=== PATIENT | female | born 1960 | race Caucasian/White ===

== ENCOUNTER 2019-04-03 08:07 | Emergency (ER) | payer OTHER, SELFPAY ==
--- NOTE | ~2019-04-03 | XR_ITS ---
XR thoracic spine 3V DATE: 04/03/2019 09:54 INDICATION: Fall. Mid back pain. TECHNIQUE: AP, lateral, swimmer views COMPARISON: None FINDINGS: There is loss of height and anterior wedging of T10, with some paraspinal soft tissue thick ening noted at this area. There is at least one third loss of height of this vertebral body anteriorl y compared to T9. CT evaluation would be helpful to differentiate compression from burst fracture. Th is is not definitively determined on this examination, due in part to mild obliquity of the lateral v iew. No other fracture of the thoracic spine is evident. The thoracic pedicles are intact. There is diffus e osteopenia. There are 11 pairs of ribs. IMPRESSION: T11 fracture Reviewed, dictated and finalized at location B. TRICITY TRADER IMPRESSION: T11 fracture
--- NOTE | ~2019-04-03 | CT_ITS ---
EXAMINATION: CT thoracic spine wo con EXAM DATE: 04/03/2019 10:33 INDICATION: Thoracic fracture. TECHNIQUE: Spiral CT thoracic spine wo con was performed without contrast. Axial, coronal and sagit sandra images were reviewed. The dose-length product (DLP) for this examination was 1066.05 mGy-cm. Th e exposure was tailored according to patient size (auto mA exposure control), and iterative reconstru ction (ASIR) was used as additional dose reduction technique. There is no prior study for comparison . FINDINGS: There are only 11 thoracic rib bearing thoracic vertebral bodies. There is acute mild to mo derate burst fracture of the T10 vertebral body with up to 3 mm of retropulsion at the superior endpl ate. This is causing minimal central canal stenosis. Central canal otherwise widely patent. No other acute thoracic fractures are identified. Mild thoracic facet arthropathy. Mild thoracic disc disease. There is small sliding gastroesophageal hiatal hernia. IMPRESSION: 1. Total of 11 thoracic rib-bearing vertebral bodies. 2. Acute T10 burst fracture, mild to moderate loss at superior endplate. 3. Mild thoracic spondylosis. Reviewed, dictated and finalized at location A. CLIMBING INSTRUCTOR
[2019-04-03 08:12] VITALS: BP 154/103; PULSE 64; RESP 16; TEMP 36.7; O2SAT 98
[2019-04-03 08:18] VITALS: RESP 16; O2SAT 98
[2019-04-03] MEDS: KETOROLAC 15 MG/ML VIAL (*BKC) IV PUSH (08:59)
--- NOTE | 2019-04-03 09:16 | ED.FALL ---
HPI - Fall General Chief Complaint: Fall <YADI Pierce Last Filed: 04/03/19 12:11> Stated Complaint: FALL sob <YADI Pierce Last Filed: 04/03/19 12:11> Time Seen by Provider: 04/03/19 08:20 <YADI Pierce Last Filed: 04/03/19 12:11> Source: patient <YADI Pierce Last Filed: 04/03/19 12:11> Mode of arrival: EMS <YADI Pierce Last Filed: 04/03/19 12:11> Limitations: physical limitation (Patient limited in range of motion due to thoracic pain) <YADI Pierce Last Filed: 04/03/19 12:11> History of Present Illness HPI Narrative: Patient presents with chief complaint of pain to the thoracic spine that began just prior to arrival after slipping and hitting her back on a step. Patient states she feels better when she lays flat on her back and puts her knees in a flexed position. Patient states she is unable to rotate due to severe pain. Patient denies prior fracture to her thoracic spine. Patient denies radiation of pain, shortness of breath, chest pain, nausea, vomiting, head impact or any other areas of pain. Patient states she was unable to get up due to the pain so EMS was called to bring her to the emergency department. Patient last thing to eat or drink was coffee today at 7:30 AM. <YADI Pierce Last Filed: 04/03/19 12:11> Related Data Home Medications: Home Medications Medication Instructions Recorded Confirmed atenolol 04/03/19 levothyroxine 04/03/19 paroxetine HCl 04/03/19 <YDAI Pierce Last Filed: 04/03/19 12:11> Allergies/Adverse Reactions: Allergies Allergy/AdvReac Type Severity Reaction Status Date / Time meperidine Allergy Intermediate Jittery Verified 04/03/19 08:53 <YADI Pierce Last Filed: 04/03/19 12:11> Review of Systems Review of Systems: Narrative: CONSTITUTIONAL: Denies fever, chills, or sweats. EYES: Denies visual changes, redness, or discharge. ENT: Denies rhinorrhea, congestion, sore throat, or otalgia. CARDIOVASCULAR: Denies chest pain, palpitations, or edema. RESPIRATORY: Denies cough or dyspnea. GASTROINTESTINAL: Denies abdominal pain, nausea, vomiting, or diarrhea. GENITOURINARY: Denies dysuria or hematuria. BACK: Severe lower thoracic tenderness. Exam is limited as patient refuses any range of motion due to severe pain. Step-off not palpable. Mild erythema and swelling over the area SKIN: Denies rash or itching. MUSCULOSKELETAL: Denies back pain, joint pain, or myalgia. NEUROLOGIC: Denies headache, numbness, dizziness, or weakness. PSYCHIATRIC: Denies anxiety or depression. <Logan Brand PA-C - Last Filed: 04/03/19 12:11> [facility] Social History Social History: Social History Gender identity (if verbalized by the patient): Female <Logan Brand PA-C - Last Filed: 04/03/19 12:11> Exam Narrative: Exam Narrative: GENERAL: Well-appearing, well-nourished. Patient appears uncomfortable laying in a flat position with knees flexed HEAD: Normocephalic, atraumatic. No tenderness with palpation. EYES: PERRLA and EOMI. ENT: Nares clear, no rhinorrhea or epistaxis. Mucous membranes moist. Oropharynx without tonsillar hypertrophy exudate or other lesions. Bilateral TMs pearly sarabia nonbulging. No hemotympanum NECK: Supple. No adenopathy or masses. No carotid bruits or JVD. Range of motion intact without pain or tenderness. CHEST: Clear to auscultation. No respiratory distress. No wheezes rales or rhonchi HEART: Regular rate and rhythm. No murmur heard. Normal peripheral pulses. BACK: Patient extremely resistant to physical exam due to pain. Severe tenderness to lower thoracic spine with swelling erythema over the area ABDOMEN: Soft, nontender, nondistended, normal active bowel sounds. EXTREMITIES: Normal range of motion. No edema. SKIN: Warm, dry, no rash. NEURO: No focal deficits. Alert and oriented x3. PSYCH: Normal mood and affect.
[2019-04-03 11:54] VITALS: BP 135/87; PULSE 68; RESP 16; O2SAT 94
[2019-04-03 13:29] VITALS: BP 145/90; PULSE 65; RESP 16; O2SAT 95
== END 2019-04-03 13:30 | disposition short-term general hospital (02) ==
PROVIDERS: Emergency Provider Emergency Medicine
DX: S22.071A Stable burst fracture of T9-T10 vertebra, initial encounter for closed fracture (principal); M47.814 Spondylosis without myelopathy or radiculopathy, thoracic region; W00.1XXA Fall from stairs and steps due to ice and snow, initial encounter
CPT/HCPCS: 72072; 72128; 96374; 99284; 99285; J1885

== ENCOUNTER 2023-01-24 08:30 | Outpatient (RCR) | payer OTHER, SELFPAY | END 2023-01-24 09:14 | disposition home or self-care (01) | LOC: ANHCPREHAB 08:30 | PROVIDERS: PCP Internal Medicine; Visit Provider Internal Medicine Cardiovascular Disease | DX: Z95.1 Presence of aortocoronary bypass graft (principal) | CPT/HCPCS: 93798 ==

== ENCOUNTER 2024-04-12 21:42 | Observation (INO) | payer OTHER, SELFPAY ==
--- NOTE | ~2024-04-12 | XR_ITS ---
CHEST RADIOGRAPH CLINICAL HISTORY: chest pain . COMPARISON: None TECHNIQUE: Single portable view of the chest. FINDINGS Sternal wires and mediastinal clips are identified, the wires are midline and intact. The remainder of the cardiomediastinal silhouette is otherwise unremarkable. The lungs are clear. Visualized osseous structures and soft tissues are unremarkable. IMPRESSION: No focal infiltrate or effusion. Reviewed, dictated and finalized at location A. UCTION GEAR CUTTER
--- NOTE | 2024-04-12 21:46 | ECG_ITS ---
Test Date: 2024-04-12 22:10:04 Measurements Intervals Collins Rate: 65 P: 29 SC: 158 QRS: 45 QRSD: 98 T: 75 QT: 406 QTc: 423 Interpretive Statements SINUS RHYTHM NORMAL ECG No previous ECG available for comparison Electronically Signed On 04-13-2024 08:17:32 REGIONAL MAINTENANCE MANAGER by Hernandez Welch D.O.
--- NOTE | 2024-04-12 21:48 | ED.CHESTPAIN ---
HPI - Chest Pain General Chief Complaint: Chest Pain Stated Complaint: chest pain Time Seen by Provider: 04/12/24 21:43 Source: patient Mode of arrival: EMS Limitations: no limitations History of Present Illness HPI narrative: This is a 64-year-old female with PMH of CAD, s/p CABG August 2022, HLD who presents to the ED for chief complaint of chest pain beginning yesterday and has been intermittent in nature. States it is difficult to report on the exact location but feels like it is in the left anterior chest and sometimes in the back. Patient reports that the pain has been intermittent and usually only last for 10-15 minutes. Not specifically associated with exertion. Denies associated syncope, sweats, nausea, vomiting. Denies associated shortness of breath, cough or recent illness. She received full dose aspirin via EMS and also received nitro spray x1. States that the nitro did help with pain and that pain is minimal at this point. Related Data Home Medications ?Medication ?Instructions ?Recorded ?Confirmed ?Last Taken ?Type atenolol 04/03/19 Unknown History levothyroxine 04/03/19 Unknown History paroxetine HCl 04/03/19 Unknown History Allergies Allergy/AdvReac Type Severity Reaction Status Date / Time meperidine Allergy Intermediate Jittery Verified 10/24/22 08:37 potato Allergy Other Verified 10/24/22 08:39 soy Allergy Wheezing Verified 10/24/22 08:39 Review of Systems Review of Systems: All systems as dictated in [facility] Family History Family History (Updated 10/24/22 @ 08:31 by Albertina Terry RN) Father High cholesterol Hypertension Cerebrovascular accident Diabetes mellitus Cancer Mother High cholesterol Hypertension Heart disease Heart attack Cancer Sibling High cholesterol Hypertension Heart disease Diabetes mellitus Social History Social History Smoking packs per day: 1 Smoking cigarettes per day: 20.0 Years smoked: 10 Smoking pack-years: 10.00 Smoking status: Former smoker Tobacco type: cigarettes Additional smoking assessment comments: inconsistent for approx 10 years Gender identity (if verbalized by the patient): Female Exam Narrative: GENERAL: Well-appearing, well-nourished, and in no acute distress. HEAD: Normocephalic, atraumatic. EYES: PERRLA and EOMI. ENT: Nares clear, no rhinorrhea or epistaxis. Mucous membranes moist. Oropharynx without tonsillar hypertrophy exudate or other lesions. NECK: Supple. No adenopathy or masses. CHEST: No respiratory distress. Clear to auscultation. No wheezes rales or rhonchi HEART: Regular rate and rhythm. No murmur heard. Normal peripheral pulses. ABDOMEN: Soft, nontender, nondistended, normal active bowel sounds. MSK: Normal range of motion. No edema. SKIN: Warm, dry, no rash. NEURO: Alert and oriented x4. No focal deficits. PSYCH: Normal mood and affect. Course Vital Signs Vital signs: Vital Signs Pulse Rate 68 04/12/24 21:50 Respiratory Rate 20 04/12/24 21:50 Blood Pressure 132/89 04/12/24 21:50 Pulse Oximetry 98 04/12/24 21:50 Pulse Rate 62 04/13/24 01:20 Respiratory Rate 17 04/13/24 00:52 Blood Pressure 114/68 04/13/24 01:20 Pulse Oximetry 98 04/13/24 00:52 Oxygen Delivery Room Air 04/12/24 21:51 MDM - Chest Pain MDM Narrative Medical decision making narrative: This is a 64-year-old female who presents to the ED for chief complaint of chest pain beginning yesterday and episodic in nature. Concern for unstable angina today. Vitals on arrival are normal. She received nitro sublingually and route via EMS which did improve her pain and her EKG findings. Lab work surprisingly showing normal troponin on arrival and subsequent troponin is normal at 3 hour fermin. D-dimer is negative. Lab work is overall unremarkable. Chest x-ray shows no acute findings. Patient developed a couple of bouts of acute worsening pain. She appears to have dynamic ST changes in leads V4, V5, V6 on repeat ECGs. She was then started on heparin bolus and drip, nitro drip for unstable angina. After the nitro drip has started, she is now pain-free. The ECG has returned back to sinus rhythm with no depression in anterolateral leads Discussed the case including her history of coronary bypass with Dr. Reddy who agrees with starting the heparin drip and nitro drip. Recommends admitting to the hospitalist and they will consult in the morning. Patient was given supportive therapy with O2 nasal cannula, IV morphine, Valium for anxiety as well as started on heparin bolus and drip with nitro drip. Patient will be admitted to ICU under Dr. Griffin. Lab Data 04/12/24 22:17 02/15/25 22:17 Labs: Lab Results 04/12/24 04/12/24 04/13/24 Range/Units 22:17 23:29 00:48 WBC 4.8 (4.5-10.0) K/mm3 RBC 4.57 (4.2-5.4) M/mm3 Hgb 14.2 (12.0-15.0) g/dL Hct 42.0 (37.0-47.0) % MCV 91.9 (80-100) fl MCH 31.1 (26-34) pg MCHC 33.8 (32-36) g/dl RDW 13.3 (11.5-14.5) % Plt Count 235 (150-375) k/mm3 MPV 9.5 (7.4-10.4) fl Immature Gran % (Auto) 0.2 (0-0.5) % Neut % (Auto) 50.8 (45.5-73.1) % Lymph % (Auto) 37.7 (18.3-44.2) % Piatt % (Auto) 8.4 (2.6-8.5) % Eos % (Auto) 2.3 (0-4.4) % Baso % (Auto) 0.6 (0.2-1.2) % Lymph # (Auto) 1.80 (0.9-3.2) K/mm3 Piatt # (Auto) 0.4 (0.1-0.6) K/mm3 Eos # (Auto) 0.1 (0-0.3) K/mm3 Baso # (Auto) 0.0 (0.0-0.1) K/mm3 Abs Immat Gran (auto) 0.01 (0.00-0.031) K/mm3 Absolute Neuts (auto) 2.4 (1.3-6.7) K/mm3 Absolute Nucleated RBC 0.000 (0.0-0.012) K/mm3 Nucleated RBC % 0.0 (0.0-0.2) % PT 12.8 (11.1-14.7) Seconds INR 0.9 APTT 27.4 (22.3-36.8) Seconds D-Dimer < 0.27 (<0.48) ug/mL Sodium 142 (137-145) mmol/L Potassium 4.3 (3.4-5.0) mmol/L Chloride 105 (98-107) mmol/L Carbon Dioxide 26 (22-30) mmol/L Anion Gap 11 (4-12) mmol/L BUN 20 H (7-17) mg/dL Creatinine 0.60 L (0.7-1.0) mg/dL Estim Creat Clear Calc 77 ml/min Estimated GFR > 60 (59 - ) Glucose 106 (65-110) mg/dL Calcium 9.2 (8.4-10.2) mg/dL Total Bilirubin 0.3 (0.2-1.3) mg/dL AST 27 (14-36) U/L ALT 30 (6-35) U/L Alkaline Phosphatase 77 (38-126) U/L Troponin I < 0.012 < 0.012 (0.000-0.034) ng/mL NT-Pro-B Natriuret Pep 41 (19.9-100) pg/mL Total Protein 7.0 (6.3-8.2) g/dL Albumin 4.2 (3.5-5.1) g/dL Lipase 126 (23-300) U/L Urine Color Yellow (Yellow) Urine Appearance Cloudy H (Clear) Urine pH 7.0 (5.0-9.0) Ur Specific Meigs 1.020 (1.001-1.035) Urine Protein Negative (Negative) mg/dL Urine Glucose (UA) Negative (Negative) mg/dL Urine Ketones Trace H (Negative) mg/dL Ur Blood (Man) Negative (Negative) Urine Nitrate Negative (Negative) Urine Bilirubin Negative (Negative) Urine Urobilinogen 0.2 (<2.0) mg/dL Leukocyte Esterase Rfl Negative (Negative) CLARENCE/UL Urine RBC 0-2 (0-2) /hpf Urine WBC 0-5 (0-3) /hpf Ur Squamous Epith Cells None seen (Few) /hpf Urine Bacteria None seen /hpf Urine Casts 0-2 ECG Data EKG #1: ECG completion date: 04/12/24 ECG completion time: 22:10 Prior ECG tracings: available for review Interpretation: Sinus rhythm Rate 65 Normal QRS Normal QTC No ST elevation or significant ST depression. In comparison to ECG done by EMS just prior to arrival, the ST depressions from V4, V5 have resolved. EKG #2: ECG completion date: 04/13/24 ECG completion time: 00:34 Prior ECG tracings: available for review Interpretation: Sinus rhythm Rate 66 QRS normal [address] depressions in leads V4, V5 which is acutely changed from previous ECG this evening [address] elevations EKG #3: ECG completion date: 04/13/24 ECG completion time: 01:02 Prior ECG tracings: available for review Interpretation: Sinus rhythm Rate [address] Dynamic [address] changes with a worsening 1-2 mm depression in V4, V5 and developing 1 mm depression in V6 No STEMI EKG #4: ECG completion date: 04/13/24 ECG completion time: 01:55 Interpretation: Sinus rhythm Normal rate Improved ST segments in V4, V5, V6 compared to previous ECG 45 minutes ago. Does not appear to have any significant depression or ST elevation at this time Discharge Plan Discharge Clinical Impression: Unstable angina, Abnormal ECG Patient Disposition: Still a Patient Condition: Serious Instructions: Antibiotic Form Patient Language: Macedonian Prescriptions: No Action atenolol levothyroxine paroxetine HCl Follow-up/Referrals: Matias,Kyle Jackson MD [Primary Care Provider] - Time of Disposition: 01:52 Quality HEART score for chest pain patients History: moderately suspicious ECG: significant ST depression Age: > 45 and < 65 years Risk factors: > or = to 3 risk factors of atherosclerotic disease Troponin: < or = to 1x normal limit Heart score: 6
[2024-04-12 21:50] VITALS: BP 132/89; PULSE 68; RESP 20; O2SAT 98
[2024-04-12 21:51] VITALS: PULSE 69; O2SAT 98
--- OUTSIDE RECORDS SUMMARY | 2024-04-12 21:53 | XMS_ITS | Clinical Summary ---
Author Organization [facility] Address [address] [place] [address] Care Team Providers Care Supervisor Salvage Name Role Phone Unavailable Primary Care Provider Unavailabl e Source Comments [facility],non-owned Affiliates and Associated Physician Practices is amultiple site organization consisting of ambulatory clinics and hospital sitesin [place], [place], [place] and [place]. This disclosure is being madepursuant to the Care Everywhere program and may not contain all information available regarding this patient. Last updated 17.[facility] [employer] Allergies Active Allergy Reactions Criticality Noted Date Comments Meperidine Other 02/11/2019 Medications * Be aware that medications may not be up to date on this document. Alwaysverify current medications with the patient. Medication Sig Dispensed Refills Start Date End Date Status ALPRAZolam (XANAX) 0.5 MG tablet alprazolam 0.5 mg tablet Active atenolol (TENORMIN) 25 MG tablet atenolol 25 mg tablet Active levothyroxine (SYNTHROID) 100 MCG tablet levothyroxine 100 mcg tablet TAKE ONE TABLET BY MOUTH EVERY DAY Active benzonatate (TESSALON) 200 MG capsule Take 1 capsule by mouth 3 times daily as needed for Cough 30 capsule 02/11/2019 Active Active Problems No known active problems Immunizations Name Administration Dates Next Due INFLUENZA VACCINE, QUADR. (F LUZONE; FLULAVAL; FLUARIX; AFLURIA QUADRIVALENT; 6MO+), 0.5 ML (IIV4) 01/14/2021 Social History Tobacco Use Types Packs/Day Years Used Date Smoking Tobacco: Former Smokeless Tobacco: Never Sex and Gender Information Value Date Recorded Sex Assigned at Not on file Gender Identity Not on file Sexual Orientation Not on file Last Filed Vital Signs Vital Sign Reading Time Taken Comments Blood Pressure 136/88 02/11/2019 6:04 PM EMERGENCY ROOM RN Pulse 70 02/11/2019 6:04 PM EMERGENCY ROOM RN Temperature 36.8 C (98.3 F) 02/11/2019 6:04 PM EMERGENCY ROOM RN Respiratory Rate 16 02/11/2019 6:04 PM EMERGENCY ROOM RN Oxygen Saturation 97% 02/11/2019 6:04 PM EMERGENCY ROOM RN Inhaled Oxygen Concentration - - Weight 74.8 kg (165 lb) 02/11/2019 6:04 PM EMERGENCY ROOM RN Height 167.6 cm (5' 6 ) 02/11/2019 6:04 PM EMERGENCY ROOM RN Body Mass Index 26.63 02/11/2019 6:04 PM EMERGENCY ROOM RN Plan of Treatment Health Maintenance Due Date Last Done Comments COLOGUARD (AGES 45-75) - COL ON CA SCREENING 1962 COLON MONITORING 1962 COLONOSCOPY - COLON CA SCREENING 1962 CT COLONOGRAPHY - COLON CA SCREENING 1962 Colorectal Cancer Screening 1962 FIT - COLON CA SCREENING 1962 FLEX SIG - COLON CA SCREENING 1962 LIPID TESTING 1962 MAMMOGRAM 1962 PAP SMEAR 1962 HIV SCREENING 1977 HEPATITIS C SCREENING 03/05/1980 DTAP/TDAP/TD VACCINES (1 - Tdap) 1981 PNEUMOCOCCAL VACCINE 50+ (1 of 1 - PCV) 2012 ZOSTER VACCINE (1 of 2) 2012 COVID-19 VACCINE ( - 2023-2 5 season) 2023 INFLUENZA VACCINE (#1) 2023 1, 12/16/2019 DEPRESSION SCREENING 02/27/2024 Respiratory Syncytial Virus (RSV) Vaccine Pt: or over 60 yrs (1 - 1-dose 75+ series) 2037 HEPATITIS B VACCINE Aged Out No longe r eligible based on patient's age to complete this topic HIB VACCINE Aged Out No longer eligi ble based on patient's age to complete this topic HPV VACCINE Aged Out No longer eligi ble based on patient's age to complete this topic MENINGOCOCCAL (Group B) VACCINE Aged Out No longer eligible b ased on patient's age to complete this topic MENINGOCOCCAL VACCINE Aged Out No madi brice eligible based on patient's age to complete this topic PNEUMOCOCCAL VACCINE Aged Out No long er eligible based on patient's age to complete this topic
--- OUTSIDE RECORDS SUMMARY | 2024-04-12 21:53 | XMS_ITS | Continuity of Care Document ---
Author Organization [facility] Address [address] [place] [address] Phone Care Team Providers Care Control Room Helper Name Role Phone Jaret PUENTE, R Unavailable Unavailable Advance Directives Directive Yes / No Effective Date File Name No Information Encounters Encounter Description Practice Location Reason(s) For Visit Diagnoses Date Provider Providers Copied on Encounter [facility], [address] [facility] [place], [place], [id number], tel:[phone] [facility] No Information Jaret Burden. [address] [facility] [address], [place], [place], [id number] , [place]. tel: [phone] Family History Family Member Type Diagnosis Age At Onset No Information Payers Payer name Insurance type Covered green party ID Authoriza tion(s) No Information Social History Type Description Quantity Date Captured Comments Sex Female Smoking Status No Information Chief Complaint And Reason For Visit No Information Reason For Referral Reason For Referral No Information History Of Present Illness Encounter Date Complaint History Of Prese nt Illness No Information Functional Status Date Functional Assessmen t No Information Instructions Date Instruction Additional Infor mation No Information Assessments Type Assessment Date No Information Patient Care Teams Name Effective Dates (start - stop) Status Members No Information
--- OUTSIDE RECORDS SUMMARY | 2024-04-12 21:53 | XMS_ITS | Clinical Summary ---
Author Organization [facility] Address [address] [place] [address] Care Team Providers Care Apartment Rental Agent Name Role Phone Kyle Salcedo MD Primary Care Provider [phone] Sadaf Coronado MD Unavailable [phone] Unknown, Notinfile Unavailable Unavailable Allergies Active Allergy Reactions Criticality Noted Date Comments Meperidine Mental status changes Low Potatoes Stomach upset Low 09/01/2022 white potatoes Soy Wheezing Medium 04/10/2022 Medications fexofenadine (RYAN ALLERGY) 180 mg tablet take 1 tablet by oral route every day 0 0 09/09/19 16 Active famotidine-Ca carb-mag hydrox (PEPCID COMPLETE) 10-800-165 mg chewable tabletIndicati ons:Heartburn Take 1 tablet by mouth daily as needed for heartburn Active multivitamin capsule Take 1 capsule by mouth daily with lunch Active acidophilus-pe ctin, citrus 100 million cell-10 mg capsule Take 1 tablet by mouth every morning Active psyllium 0.52 gram capsule Take 1 capsule (0.52 g total) by mouth every morning Active ALPRAZolam (XANAX) 0.5 mg tablet Take 1 tablet (0.5 mg total) by mouth nightly as needed for anxiety or sleep 90 tablet 2 02/21/20 23 Active FLUoxetine 10 mg tablet/capsule TAKE ONE CAPSULE BY MOUTH EVERY DAY 90 capsule 2 01/18/20 24 Active atorvastatin (LIPITOR) 80 mg tablet TAKE ONE TABLET BY MOUTH AT BEDTIME 90 tablet 2 01/18/20 24 Active atenoloL (TENORMIN) 25 mg tablet Take 1 tablet (25 mg total) by mouth daily 90 tablet 1 02/08/20 24 025 Active clopidogreL (PLAVIX) 75 mg tablet Take 1 tablet (75 mg total) by mouth daily 30 tablet 11 03/19/19 25 Active levothyroxine (SYNTHROID) 100 mcg tablet TAKE ONE-HALF TABLET BY MOUTH EVERY DAY 45 tablet 2 03/26/19 25 Active clopidogreL (PLAVIX) 75 mg tablet TAKE 1 TABLET(75 MG) BY MOUTH DAILY 30 tablet 11 03/28/19 24 025 Discontinued(Re order) levothyroxine (SYNTHROID) 100 mcg tablet TAKE ONE-HALF TABLET BY MOUTH EVERY DAY 45 tablet 2 07/09/19 24 025 Discontinued Active Problems Problem Noted Date Diagnosed Date CAD in [place] artery 08/23/2022 Assessment & Plan (11/12/2023 2:44 PM CDT): Stable and doing well. Coronary artery disease 07/17/2022 Assessment & Plan (08/28/2022 11:30 AM CDT): S/P CABG x2 PT/OT Aggressive pulmonary toilet Cts out Plan to DC wires today Continue aspirin, statin, not on BB yet due to soft BP's Assessment & Plan (08/27/2022 11:51 AM CDT): S/P CABG x2 PT/OT Aggressive pulmonary toilet Plan to DC CT's today Cap wires Continue aspirin, statin, not on BB yet due to soft BP's Routine general medical exam ination at a health care facility 04/10/2022 Assessment & Plan (04/10/2022 10:29 AM EXTRUSION DIE CORRECTOR): Labs today Referrals for DEXA, MMG, COLO and EGD Will make WWE Declines shingles vaccination, otherwise IUTD Goal of 150 min/weekly of moderate intensity activity Limit 1 EtOH/drink daily Anxiety disorder 12/18/2017 Assessment & Plan (08/28/2022 11:30 AM CDT): Continue home paxil Assessment & Plan (08/27/2022 11:56 AM CDT): Continue home paxil Benign essential hypertension 12/18/2017 Assessment & Plan (11/12/2023 2:44 PM CDT): BP at target. Continue present Rx. Gastroesophageal reflux disease 12/18/2017 Assessment & Plan (08/28/2022 11:30 AM CDT): Continue PPI therapy Assessment & Plan (08/27/2022 11:56 AM CDT): Continue PPI therapy Overweight 06/23/2015 Overview (06/01/2016): Overweight Hypertension 06/23/2015 Overview (06/01/2016): Hypertension Insomnia 06/23/2015 Overview (06/01/2016): Insomnia Hyperlipidemia 06/23/2015 Overview (06/01/2016): Hyperlipidemia, unspecified hyperlipidemia type Assessment & Plan (11/12/2023 2:44 PM CDT): Stable at this time. Will do labs Assessment & Plan (08/28/2022 11:29 AM CDT): Continue statin therapy Assessment & Plan (08/27/2022 11:55 AM CDT): Continue statin therapy Assessment & Plan (04/10/2022 10:33 AM EXTRUSION DIE CORRECTOR): Reviewed today, elevated We discussed diet and activity Trial 20mg atorvastatin Acquired hypothyroidism 06/23/2015 Overview (12/18/2017): Hypothyroidism, unspecified type Assessment & Plan (08/28/2022 11:29 AM CDT): Continue levothyroxine Assessment & Plan (08/27/2022 11:57 AM CDT): Continue levothyroxine Vitamin D deficiency 11/23/2014 Overview (04/04/2019): Vitamin D deficiency Allergic rhinitis 11/23/2014 Overview (12/18/2017): Allergic rhinitis Resolved Problems Problem Noted Date Diagnosed Date Resolved Date Acute pain due to trauma 04/04/2019 Burst fracture of thoracic vertebra (CMS/HCC) 04/04/19 20 04/10/2022 Fracture of eleventh thoraci c vertebra with routine healing 04/04/2019 04/10/2022 UTI (urinary tract infection) 04/04/2019 04/10/2022 Orthostatic hypotension 04/04/201903/29 Weight gain 12/18/2017 04/04/2019 Arthralgia of hip 03/28/2016 04/10/2022 Encounters Date Type Department Care Team Description 04/11/2024 Telephone [facility] [address] [place] [address] Sarmad Shetty MD Chest Pain; sternum soreness from Last 3 Months Immunizations Name Administration Dates Next Due Influenza, Quadrivalent, Quiana l Culture-based MDCK, Preservative Free, Antibiotic Free, Intramuscular 01/20/2022,12/16/2019 Influenza, Quadrivalent, Spl it, Preservative Free, Intramuscular 01/14/2021,11/26/2014,11/26/2013 Influenza, Unspecified 11/26/2018,11/26/2018 Moderna Sars-cov-2 Bivalent Vaccine 50 Mcg/0.5 mL (12+ YRS)-Blue/Frank 01/05/2022 Pfizer SARS-CoV-2 Monovalent Vaccination (12+ Yrs) PURPLE 12/14/2020 Tdap 05/19/2022,09/26/2014 Surgical History Surgery Date Site/Laterality Comments SINUS SURGERY 02/26/1995 - 02/26/1996 CARDIAC SURGERY 08/23/2022 Medical History Medical History Date Comments Hypertension Hypertension Depression Thyroid disease Burst fracture of thoracic vertebra (CMS/HCC) (H CC) 04/04/2019 Fracture of eleventh thoracic vertebra with rout ine healing 04/04/2019 Family History Medical History Relation Name Comments Diabetes Father Family history of diabetes mellitus - (Added by Conv) Glaucoma Father Hypertension Father Hypertension; / Family history of hypertension - (Added by Conv) Prostate cancer Father Stroke Father hemorrhagic Heart disease Maternal Grandfather Osteoporosis Maternal Grandmother Arthritis Mother Family history of arthritis - (Added by Conv) Breast cancer Mother Cancer, breast ; Gout Mother Family history of gout - (Added by TW Conv) Heart disease Mother Heart disease; /Family history of cardiac disorder - (Added by Conv) Hypertension Mother Hypertension; / Family history of hypertension - (Added by Conv) Macular degeneration Mother Obesity Mother Obesity; Scoliosis Mother Diabetes Sister Hyperlipidemia Sister Macular degeneration Sister Relation Name Status Comments Father Alive Maternal Grandfather Maternal Grandmother Mother Alive Paternal Grandfather Paternal Grandmother Sister Alive Social History Tobacco Use Types Packs/Day Years Used Date Smoking Tobacco: Former Cigarettes 0.1 42.1 S tarted: 1982 Smokeless Tobacco: Never Tobacco Cessation:Counseling Given: Not Answered Alcohol Use Standard Drinks/Week Comments Yes 0 (1 standard drink = 0.6 oz pur e alcohol) OASIS D0700: Social Isolation Answer Da te Recorded Frequency of experiencing loneliness or isolatio n Often 09/01/2022 AUDIT-C Answer Date Recorded Q1: How often do you have a drink containing alcohol? 4 or more times a week 08/16/2022 Q2: How many drinks containi ng alcohol do you have on a typical day when you are drinking? 1 or 2 3 Q3: How often do you have si x or more drinks on one occasion? Never 08/16/2022 PHQ-2 Answer Date Recorded PHQ-2 Total Score (If total score is 3 or more points, staff should administer the PHQ-9) 1 04/10/2022 Exercise Vital Sign Answer Date Recorde d On average, how many days pe r week do you engage in moderate to strenuous exercise (like a brisk walk)? 5 days 04/10/2022 On average, how many minutes do you engage in exercise at this level? 40 min 04/10/2022 Personal Safety Answer Date Recorded Have you ever been in or are you currently in a harmful physical or emotional relationship or is someone making you feel afraid or unsafe? Denies 08/26/2022 Comments No Sex and Gender Information Value Date Recorded Sex Assigned at Not on file Legal Sex Female 3:49 AM EXTRUSION DIE CORRECTOR Gender Identity Female 12/21/2017 12:29 PM CDT Sexual Orientation Not on file Obstetrics History Para Term AB IAB SAB Ectopic Multiple Livin g Live Births 0 0 0 0 0 0 0 0 0 0 0 Last Filed Vital Signs Vital Sign Reading Time Taken Comments Blood Pressure 149/87 11/12/2023 2:12 PM CDT Pulse 79 11/12/2023 2:12 PM CDT Temperature 37.1 C (98.8 F) 02/16/2023 8:49 AM EXTRUSION DIE CORRECTOR Respiratory Rate 16 10/23/2022 9:27 AM CDT Oxygen Saturation 98% 02/16/2023 8:49 AM EXTRUSION DIE CORRECTOR Inhaled Oxygen Concentration - - Weight 72.6 kg (160 lb) 11/12/2023 2:12 PM CDT Height 167.6 cm (5' 6 ) 11/12/2023 2:12 PM CDT Body Mass Index 25.82 11/12/2023 2:12 PM CDT Plan of Treatment Scheduled Procedures Name Priority Associated Diagnoses Date/Ti me COLONOSCOPY Colon cancer screening Gastroesophageal reflux disease, unspecified whether esophagitis present ESOPHAGOGASTRODUODENOSCOPY Colon cancer screening Gastroesophageal reflux disease, unspecified whether esophagitis present ESOPHAGOGASTRODUODENOSCOPY Gastroesophageal reflux disease with esophagitis without hemorrhage COLONOSCOPY Encounter for screening colonoscopy Health Maintenance Due Date Last Done Comments Colon Cancer Screening-Colonoscopy 1962 Hepatitis C Screening 1962 Pneumococcal vaccine <65 (1 of 2 - PCV) 1968 Hepatitis B Screening 1980 Zoster Vaccine (1 of 2) 2012 Breast Cancer Screening-Mammogram 02/26/2015 015 Cervical Cancer Screening 02/26/2015 02/26/2014 Depression Screening 04/10/2023 04/10/2022 Regular Well Visit/Exam 18-64 04/10/2023, 11/09/2020, 11/09/2020 Covid-19 Vaccine (5 - 2023-2 5 season) 2023 01/05/2022, 12/14/2020, 04/08/2020, Additional history exists Influenza Vaccine (#1) 2023 2, 01/14/2021, 12/16/2019, Additional history exists DTaP/Tdap/Td Vaccine (3 - Td or Tdap) 05/19/2032 05/19/2022, 09/26/2014 Procedures Procedure Name Priority Date/Time Associated Diagnosis Comments MAMMOGRAPHY Routine 02/26/2014 PAP SMEAR WITH HPV Routine 02/26/2014 from Last 3 Months or Most Recently Relevant to Health Maintenance Results * PAP SMEAR WITH HPV (02/26/2014) Pap smear Normal Historical Provider MD HEALTH MAINTENANCE Final Result * MAMMOGRAPHY (02/26/2014) Mammogram Normal Historical Provider HEALTH MAINTENANCE Final Result from Last 3 Months or Most Recently Relevant to Health Maintenance Insurance [facility] [employer] Address: [facility] [id number] [place] [address] [employer] Address: [facility] [address] [place] [address] [employer] [facility] [employer] Address: [facility] [address] [place] [address] [employer] [facility] [employer] [facility] [employer] Address: [facility] [address] [place] [address] [employer] [employer] [employer] Address: [facility] [address] [place] [address] [employer] [facility] [employer] [facility] [employer] Address: [facility] [address] [place] [address] Advance Directives For more information, please contact: [phone] Documents on File Type Date Recorded Patient Drum Sealer Expl anation ADVANCE DIRECTIVE 08/23/2022 6:56 AM Power of Hot Man-Medical * Full Code (Latest Code Status on File) Date Activated Date Inactivated Comments 08/23/2022 12:43 PM 08/30/2022 3:08 PM * Full Code Date Activated Date Inactivated Comments 08/23/2022 12:43 PM 08/23/2022 12:43 PM * Full Code Date Activated Date Inactivated Comments 04/03/2019 11:00 PM 04/07/2019 8:17 PM Care Teams Apartment Rental Agent Relationship Specialty Start Date End Date Kyle Salcedo MD [address] [facility] [address] [place] [address] PCP - General Internal Medicine 12/18/17 Sadaf Coronado MD [id number] [place] [address] Cardiothoracic Surgery 08/30/22 Unknown, Notinfile 08/30/22
--- OUTSIDE RECORDS SUMMARY | 2024-04-12 21:53 | XMS_ITS | Data Portability ---
Author Organization [place] [facility],, Brandi rios Address [address] [place] [address] Assessment Encounter Date Assessment Date Assessment LastModified by Organization Details LastModified Time 03/12/2015 03/12/2015 Weight gain-suspect this is related to inactivity after her move. I suspect there is some anxiety and mild depression. I have encouraged her to exercise and I will start her on an antidepressant. Additionally I will check some routine blood work. Gastroesophageal reflux symptoms-will start on omeprazole 40 mg per day. If her symptoms do not respond she'll need an upper endoscopy. Allergic rhinitis-will check for allergies by RAST testing. she will start on an intranasal corticosteroid. Anxiety disorder-will start on sertraline. [email or web address] Not available 03/13/2015 09:15:26 04/26/2015 04/26/2015 Hypothyroidism- will check levels and adjust thyroid medication accordingly. [email or web address] Not available 04/26/2015 18:12:24 Plan of Treatment Reminders Order Date Submit Date Provider Last Modified By Organization Details Last Modified Time Details Appointments None recorde d. Lab TSH + free T4, serum 2016 017 [email or web address] [facility], [address], [address], [place], [address], 7 15:28:29 vitamin D, 25-hydr oxy, total, serum 2016 017 ALEX [facility], [address], [address], [place], [address], 7 07:12:33 TSH + free T4, serum 2015 016 ALEX [facility], [address], [address], [place], [address], 6 07:26:21 CBC w/ auto diff 2015 016 [email or web address] [facility], [address], [address], [place], [address], 6 10:32:29 CMP, serum or plasma 2015 016 [email or web address] [facility], [address], [address], [place], [address], 6 09:15:25 TSH + free T4, serum 2015 016 [email or web address] [facility], [address], [address], [place], [address], 6 10:32:29 respira tory [facility] 2015 016 [email or web address] [facility], [address], [address], [place], [address], 6 23:19:33 Referral None recorde d. Procedures None recorde d. Surgeries None recorde d. Imaging None recorde d. Medication Orders levothy roxine 100 mcg tablet 2016 017 INTERFACE [facility], [address], [address], [place], [address], 7 17:21:21 levothy roxine 100 mcg tablet 2016 017 INTERFACE [id number], [address] [place], [address], 7 17:21:21 Patanas e 0.6 % nasal spray 2015 016 [id number], [address] [place], [address], 7 16:56:20 sertral ine 50 mg tablet 2015 016 [facility], [address] [place], [address], 7 16:55:37 omepraz ole 40 mg capsule ,delaye d release 2015 016 [facility], [address] [place], [address], 6 09:15:25 Patient TargetsNo targets recorded. Patient Instructions Encounter Date Encounter Id Patient Instructions Last Modified By Organization Details Last Modified Time 03/12/2015 [id number] allergies: care instructions [email or web address] Not available 03/13/2015 09:15:26 managing your allergies: care instructions [email or web address] Not available 03/13/2015 09:15:26 anxiety disorder : care instructions [email or web address] Not available 03/13/2015 09:15:25 learning about anxiety disorders [email or web address] Not available 03/13/2015 09:15:25 gastroesophageal reflux disease (GERD): care instructions [email or web address] Not available 03/13/2015 09:15:25 04/26/2015 [id number] gastroesophageal reflux disease (GERD): care instructions [email or web address] Not available 04/26/2015 18:12:24 high blood pressure: care instructions [email or web address] Not available 04/26/2015 18:12:24 learning about h igh blood pressure [email or web address] Not available 04/26/2015 18:12:24 09/28/2016 [id number] high blood pressure: care instructions [email or web address] Not available 09/28/2016 17:43:37 learning about h igh blood pressure [email or web address] Not available 09/28/2016 17:43:37 Reason for Referral None Reported. Results Created Date Observation Date Name Description Value Unit Range Abnormal Flag Note LastModifiedBy Organization Detail LastModifiedTime 03/12/19 16 03/12/2015 CBC WBC 5.9 K/cum m 3.8-9. 8 Not Available [facility] [address] [place], [address], 03/12/2015 22:20:57 03/12/19 16 03/12/2015 CBC RBC 4.87 M/cum m 3.90-5 .00 Not Available [facility] [address] [place], [address], 03/12/2015 22:20:57 03/12/19 16 03/12/2015 CBC HGB 15.3 g/dL 12.1-1 5.1 high Not Available [facility] [address] [place], [address], 03/12/2015 22:20:57 03/12/19 16 03/12/2015 CBC HCT 46.0 % 36.1-4 4.3 high Not Available [facility] [address] [place], [address], 03/12/2015 22:20:57 03/12/19 16 03/12/2015 CBC MCV 94.3 fL 80.0-9 7.6 Not Available [facility] [address] [place], [address], 03/12/2015 22:20:57 03/12/19 16 03/12/2015 CBC MCH 31.4 pg 26.7-3 3.7 Not Available [facility] [address] [place], [address], 03/12/2015 22:20:57 03/12/19 16 03/12/2015 CBC MCHC 33.2 g/dL 32.7-3 5.5 Not Available [address], [address], 03/12/2015 22:20:57 03/12/19 16 03/12/2015 CBC RDW 13.8 % 11.8-1 4.6 Not Available [address], [address], 03/12/2015 22:20:57 03/12/19 16 03/12/[address] 310 K/cum m 140-44 0 Not Available [address], [address], 03/12/2015 22:20:57 03/12/19 16 03/12/2015 CBC MPV 8.1 fL 6.8-10 .4 Not Available [address], [address], 03/12/2015 22:20:57 03/12/19 16 03/12/2015 CBC neut pct auto 63.9 % 38.7-7 4.5 Not Available [address], [address], 03/12/2015 22:20:57 03/12/19 16 03/12/2015 CBC lymph pct auto 25.7 % 20.0-5 4.3 Not Available [address], [address], 03/12/2015 22:20:57 03/12/19 16 03/12/2015 CBC mono pct auto 7.0 % 4.3-13 .5 Not Available [address], [address], 03/12/2015 22:20:57 03/12/19 16 03/12/2015 CBC eos pct auto 2.9 % 0.0-6. 0 Not Available [address], [address], 03/12/2015 22:20:57 03/12/19 16 03/12/2015 CBC baso pct auto 0.5 % 0.0-3. 0 Not Available [address], [address], 03/12/2015 22:20:57 03/12/19 16 03/12/2015 CBC neut abs auto 3.8 K/cum m 1.8-6. 6 Not Available [address], [address], 03/12/2015 22:20:57 03/12/19 16 03/12/2015 CBC lymph abs auto 1.5 K/cum m 1.2-3. 3 Not Available [address], [address], 03/12/2015 22:20:57 03/12/19 16 03/12/2015 CBC mono abs auto 0.4 K/cum m 0.2-1. 2 Not Available [address], [address], 03/12/2015 22:20:57 03/12/19 16 03/12/2015 CBC eos abs auto 0.2 K/cum m 0.0-0. 5 Not Available [address], [address], 03/12/2015 22:20:57 03/12/19 16 03/12/2015 CBC baso abs auto 0.0 K/cum m 0.0-0. 2 Not Available [address], [address], 03/12/2015 22:20:57 03/12/19 16 03/12/2015 gluco se, QN [mass /volu me], blood glucose 92 mg/dL 70-199 Not Available [address], [address], 03/12/2015 22:33:15 03/12/19 16 03/12/2015 CMP, serum or plasm a sodium 140 mmol/ L 135-14 5 Not Available [address], [address], 03/12/2015 22:47:13 03/12/19 16 03/12/2015 CMP, serum or plasm a plasma potassium 4.3 mmol/ L 3.3-4. 9 Not Available [address], [address], 03/12/2015 22:47:13 03/12/19 16 03/12/2015 CMP, serum or plasm a chloride 101 mmol/ L 97-110 Not Available [address], [address], 03/12/2015 22:47:13 03/12/19 16 03/12/2015 CMP, serum or plasm a total CO2 28 mmol/ L 22-32 Not Available [address], [address], 03/12/2015 22:47:13 03/12/19 16 03/12/2015 CMP, serum or plasm a anion gap 11 mmol/ L 0-16 Not Available [address], [address], 03/12/2015 22:47:13 03/12/19 16 03/12/2015 CMP, serum or plasm a BUN 13 mg/dL 8-25 Not Available [address], [address], 03/12/2015 22:47:13 03/12/19 16 03/12/2015 CMP, serum or plasm a creatinine 0.66 mg/dL 0.60-1 .10 Not Available [address], [address], 03/12/2015 22:47:13 03/12/19 16 03/12/2015 CMP, serum or plasm a total calcium 9.8 mg/dL 8.6-10 .3 Not Available [address], [address], 03/12/2015 22:47:13 03/12/19 16 03/12/2015 CMP, serum or plasm a plasma total protein 7.6 g/dL 6.5-8. 5 Not Available [address], [address], 03/12/2015 22:47:13 03/12/19 16 03/12/2015 CMP, serum or plasm a albumin 4.8 g/dL 3.6-5. 0 Not Available [address], [address], 03/12/2015 22:47:13 03/12/19 16 03/12/2015 CMP, serum or plasm a total bilirubin 0.2 mg/dL 0.3-1. 1 low Not Available [address], [address], 03/12/2015 22:47:13 03/12/19 16 03/12/2015 CMP, serum or plasm a alkaline phosphatase 61 units /L 38-126 Not Available [address], [address], 03/12/2015 22:47:13 03/12/19 16 03/12/2015 CMP, serum or plasm a AST 32 units /L 11-47 Not Available [address], [address], 03/12/2015 22:47:13 03/12/19 16 03/12/2015 CMP, serum or plasm a ALT 55 units /L 7-53 high Not Available [address], [address], 03/12/2015 22:47:13 03/12/19 16 03/12/2015 T4, free, serum free T4 (free thyroxine) 1.03 NG/dL 0.90-1 .80 Not Available [address], [address], 03/12/2015 23:05:31 03/12/19 16 03/12/2015 TSH, serum or plasm a TSH 7.28 mciun it/mL 0.35-5 .50 high Inter preti ve Data Hyper thyro id: <0.1 mcIUn it/mL Hypot hyroi d: >12.0 mcIUn it/mL Curre nt inter preti ve data was last yusuf ed on 04/26. Not Available [address], [address], 03/12/2015 23:05:32 03/12/19 16 03/15/2015 aller gy panel , serum or plasm a alternaria tenuis <0.34 kunit s/L 0.00-0 .34 Not Available [address], [address], 03/15/2015 11:46:52 03/12/19 16 03/15/2015 aller gy panel , serum or plasm a bermuda grass <0.34 kunit s/L 0.00-0 .34 Not Available [address], [address], 03/15/2015 11:46:52 03/12/19 16 03/15/2015 aller gy panel , serum or plasm a CAT dander <0.34 kunit s/L 0.00-0 .34 Not Available [address], [address], 03/15/2015 11:46:52 03/12/19 16 03/15/2015 aller gy panel , serum or plasm a cladosporium herb <0.34 kunit s/L 0.00-0 .34 Not Available [address], [address], 03/15/2015 11:46:52 03/12/19 16 03/15/2015 aller gy panel , serum or plasm a dermatoph farinae <0.34 kunit s/L 0.00-0 .34 Not Available [address], [address], 03/15/2015 11:46:52 03/12/19 16 03/15/2015 aller gy panel , serum or plasm a dermatoph pteron <0.34 kunit s/L 0.00-0 .34 Not Available [address], [address], 03/15/2015 11:46:52 03/12/19 16 03/15/2015 aller gy panel , serum or plasm a dog dander <0.34 kunit s/L 0.00-0 .34 Not Available [address], [address], 03/15/2015 11:46:52 03/12/19 16 03/15/2015 aller gy panel , serum or plasm a house dust, galen-st ier <0.34 kunit s/L 0.00-0 .34 Not Available [address], [address], 03/15/2015 11:46:52 03/12/19 16 03/15/2015 aller gy panel , serum or plasm a elm tree <0.34 kunit s/L 0.00-0 .34 Not Available [address], [address], 03/15/2015 11:46:52 03/12/19 16 03/15/2015 aller gy panel , serum or plasm a maple <0.34 kunit s/L 0.00-0 .34 Not Available [address], [address], 03/15/2015 11:46:52 03/12/19 16 03/15/2015 aller gy panel , serum or plasm a oak tree <0.34 kunit s/L 0.00-0 .34 Not Available [address], [address], 03/15/2015 11:46:52 03/12/19 16 03/15/2015 aller gy panel , serum or plasm a perennial rye 0.78 kunit s/L 0.00-0 .34 high Not Available [address], [address], 03/15/2015 11:46:52 03/12/19 16 03/15/2015 aller gy panel , serum or plasm a common ragweed 1.27 kunit s/L 0.00-0 .34 high Not Available [address], [address], 03/15/2015 11:46:52 03/12/19 16 03/15/2015 aller gy panel , serum or plasm a quan grass 0.46 kunit s/L 0.00-0 .34 high Not Available [address], [address], 03/15/2015 11:46:52 03/12/19 16 03/15/2015 aller gen evalu ation allergen evaluation See Below See Inter preti ve data. Inter preti ve data Rast Class Resul t range (KUni ts/L) 1+ 0.35 - 0.69 2+ 0.70 - 3.49 3+ 3.50 - 17.49 4+ 17.50 - 49.99 5+ 50.00 - 100.0 0 6+ >100. 00 Warren jones inter preti ve data was last yusuf ed on 01/27. Not Available [address], [address], 03/15/2015 11:46:56 04/26/19 16 04/27/2015 TSH + free T4, serum TSH 1.690 uIU/m L 0.450- 4.500 Not Available [facility] ([facility]) [address], [place], [address], 04/27/2015 07:26:21 04/26/19 16 04/27/2015 TSH + free T4, serum T4,free(dire ct) 1.16 NG/dL 0.82-1 .77 Not Available [facility] ([facility]) [address], [place], [address], 04/27/2015 07:26:21 09/29/19 17 09/29/2016 thyro id panel , serum TSH 5.030 uIU/m L 0.450- 4.500 above high normal Not Available [facility] ([facility]) [address] [place], [address], 09/29/2016 07:12:33 09/29/19 17 09/29/2016 thyro id panel , serum thyroxine (T4) 6.2 ug/dL 4.5-12 .0 Not Available [facility] ([facility]) [address] [place], [address], 09/29/2016 07:12:33 09/29/19 17 09/29/2016 vitam in D, 25-hy droxy , total , serum vitamin D, 25-hydroxy 21.6 NG/mL 30.0-1 00.0 below low normal VITAM IN D DEFIC IENCY HAS BEEN DEFIN ED BY THE INSTI T[facility] OF MEDIC INE AND AN ENDOC RINE SOCIE TY PRACT ICE GUIDE LINE A LEVEL OF SERUM 25-OH VITAM IN D LESS THAN 20 NG/ML (1,2) . THE ENDOC RINE SOCIE TY WENT ON TO [facility] ER DEFIN E VITAM IN D INSUF FICIE NCY A LEVEL BETWE EN 21 AND 29 NG/ML (2). 1. IOM ([facility] OF MEDIC INE). 2009. DIETA RY REFER ENCE INTAK ES FOR CALCI UM AND D. MIAH JEWELL DC: THE NATIO NAL [facility] PRESS . 2. ADAMA Cloud MF, FRANCES PRATT NC, VALARIE OFF-F ERRAR I PALACIOS, ET AL. EVALU ATION , TREAT MENT, AND PREVE NTION OF VITAM IN D DEFIC IENCY : AN ENDOC RINE SOCIE TY CLINI KHALIF PRACT ICE GUIDE LINE. JCEM. 2010; 96(7) :1911 -30. Not Available [facility] ([facility]) [address] [place], [address], 09/29/2016 07:12:33 Result Notes None recorded. Problems Name Problem SNOMED Code Status Onset Date Resolution Date Notes Provider Name and Address Organization Details Recorded Time Weight gain 3251816 Active MD [address], [place], [address], [place] [facility], 6 09:15:25 Gastroesophage al reflux disease 963329307 Active MD [address], [place], [address], [place] [facility], 6 18:12:24 Allergic rhinitis 71606485 Active Brunilda willett [place] [facility], 6 13:29:41 Benign essential hypertension 4767215 Active MD [address], [place], [address], [place] [facility], 6 18:12:24 Anxiety disorder 774388587 Active Brunilda willett [place] [facility], 6 13:29:41 Acquired hypothyroidism 323644999 Active MD [address], [place], [address], [place] [facility], 6 18:12:24 Vitamin D deficiency 06914388 Active [address], [place], [address], [place] [facility], 7 16:58:38 Problem Notes None recorded. Medical Equipment None Reported. Allergies Allergen ID Allergen Name Allergen Category Reaction Reaction Severity Criticality Documentation Date Start Date Code Code System Note Provider Name and Address Organization Details Recorded Time 35537 Demerol medicatio n Not available Not available Not available 03/12/2015 22244 1 RxNorm Brunilda willett [place] [facility], 6 15:44:20 Medications Name Sig Start Date Stop Date Status Note LastModified by Organization Details LastModified Time prednisone 10 mg tablet 09/28 completed Not Available Not Available Not Available meloxicam 15 mg tablet 09/28 completed Not Available Not Available Not Available atenolol 25 mg tablet active Not Available Not Available No t Available Zyrtec 10 mg tablet Take 1 tablet every day by oral route. active Not Available Not Available No t Available omeprazole 40 mg capsule,del ayed release Take 1 capsule every day by oral route for 30 days. active Not Available Not Available No t Available levothyroxi ne 100 mcg tablet TAKE ONE TABLET BY MOUTH EVERY DAY 2016 active Not Available Not Available Not Avai lable alprazolam 0.5 mg tablet active Not Available Not Available Not Available ranitidine 300 mg capsule active Not Available Not Available Not Available Vitamin D2 1,250 mcg (50,000 unit) capsule 09/28 completed Not Available Not Available Not Available sertraline 50 mg tablet Take 1 tablet every day by oral route for 30 days. 09/28 completed Not Available Not Available Not Available olopatadine 0.6 % nasal spray Hoven 2 sprays twice a day by intranasa l route for 30 days. 09/28 completed Not Available Not Available Not Available Stefany Allergy 180 mg tablet Take 1 tablet every day by oral route. active Not Available Not Available No t Available Vitals Date Recorded Body weight Body temperature Body height Body mass index (BMI) Systolic blood pressure Diastolic blood pressure Provider Name and Address Organization Details Last Updated DateTime 6 37542.2 5712 g 98.2 [degF] 168.91 cm 28 kg/m2 148 mm[Hg] 100 mm[Hg] Brunilda [facility]TE[facility] - [facility], 6 15:39:17 Date Recorded Body temperature Body weight Systolic blood pressure Diastolic blood pressure Provider Name and Address Organization Details Last Updated DateTime 04/26/2015 98.2 [degF] 78855.62 66 g 118 mm[Hg] 88 mm[Hg] Brunilda [facility] - [facility], 6 16:19:12 Date Recorded Body height Body mass index (BMI) Provider Name and Address Organization Details Last Updated DateTime 04/26/2015 168.91 cm 28.6 kg/m2 Kurt Trejo MD [address] [place] [address],[address], [place], [address], [place] [facility], 04/26/2015 18:12:25 Date Recorded Body temperature Systolic blood pressure Diastolic blood pressure Provider Name and Address Organization Details Last Updated DateTime 09/28/2016 97.8 [degF] 120 mm[Hg] 90 mm[Hg] maría elena middendorf [place] [facility], 09/28/2016 16:40:35 Social History Question Answer Notes LastModified by Organizat ion Details LastModified Time Tobacco Smoking Status Former Smoker Brunilda willett [place] [facility], 03/12/2015 15:46:35 What Is Your Level Of Alcohol Consumption? Occasional Information not available 03/12/2015 At What Age Did You Start Smoking Tobacco? 22 Information not available 03/12/2015 How Much Tobacco Do You Smoke? 1 PPW Information not available 03/12/2015 Sex: Unknown Functional Status None recorded. Mental Status None recorded. Family History Relationship Description Onset Age of this Age Resolved Age Notes LastModified by Organization Details LastModified Time Mother Heart disease Alive [email or web address] Not available 18:10:22 Mother Carcinoma in situ of breast jhast Not available 18:10:22 Father Hypertensive disorder Alive jhast Not available 18:10:22 Medical History Condition Response Coronary Artery Disease N Gout N Kidney Stones N Hyperthyroidism N Hypothyroidism N Stress N Depression N COPD N Anxiety Disorder N Arthritis N Cancer N Stroke N High Cholesterol N Liver Disease N Fibromyalgia N Kidney Disease N Diabetes N Tuberculosis N Diverticulitis N Asthma N Allergies Y GERD/Reflux N Heart Disease N Pulmonary Embolism N Hypertension Y Osteoporosis N Gynecological HistoryNo gynecological history recorded. Obstetrics History GPAL:G 0 P 0 0 0 0 Past Encounters Encounter ID Performer Location Encounter Start Date Encounter Closed Date Diagnosis/Indication Diagnosis SNOMED-CT Code Diagnosis ICD10 Code Diagnosis Note [id number] Kurt sanchez MD OFFICE [address] [place] [address] 03/12/2015 15:26:59 03/12/2015 16:21:00 Weight gain 5683205 R63.5 Gastroesop hageal reflux disease 115106268 K21.9 Allergic rhinitis 153451 04 J30.9 Anxiety disorder 0454716 06 F41.9 [id number] Kurt sanchez MD OFFICE [address] [place] [id number] 04/26/2015 15:53:36 04/26/2015 17:08:24 Acquired hypothyroidism 899020494 E03.9 Benign ess ential hypertension 6595602 I10 Gastroesop hageal reflux disease 885409979 K21.9 [id number] Kurt sanchez MD OFFICE [address] [place] [id number] 09/28/2016 16:30:26 09/28/2016 17:27:45 Benign essential hypertension 3932896 I10 Acquired hypothyroidism 048421451 E03.9 Vitamin D deficiency 347 64145 E55.9 Health Concerns Section Related Observation LastModified by Organization Detai ls LastModified Time None Recorded Concern Status LastModified by Organization Details LastModified Time None Recorded Advance Directives Directive None Recorded Payers Encounter Date Sequence Insurance Name Policy Number Policy Monge Covered Member ID Monge Member ID Guarantor Name 03/12/2015 1 [employer] - OPEN ACCESS PLUS [id number] Shelbie Alonso [id number] 1 Shelbie Alonso 04/26/2015 1 [employer] - OPEN ACCESS PLUS [id number] Shelbie Alonso [id number] 1 Shelbie Alonso 09/28/2016 1 [employer] - OPEN ACCESS PLUS [id number] Shelibe Alonso [id number] Shelbie Alonso Notes Date Note Type Note Provider Name and Address Organization Details Recorded Time 03/12/2015 text/html Hypertension F/UReported bypatient.Associated Symptoms:no dizziness; no lightheadedness; no chest pain; no shortness of breath; no palpitations; no edema; no calf pain with exertion Lifestyle:limiting/a voiding salt;not exercising regularly Medications:taking medications as directed; no side effects from medication HPI Shelbie comes and for evaluation of multiple problems. She has recently moved to [place] from [place] and then move has been associated with a fair number of significant life changes. There has been a lot of stress. Associated with this she has gained 20 pounds. She is not exercising. In addition she is complaining of some sinus congestion, sneezing, stuffiness. She does take antihistamines but that has not been controlling her symptoms. She has no animals at home. She did have allergy symptoms in [place]. She is also complaining of some reflux symptoms. There is burning. It does seem to respond to Prilosec OTC but it doesn't last for a full 24 hours. She does have a history of hypertension and has been taking atenolol with good control for many years. MD [address], [place], [address], [place] [facility], 03/13/2015 09:15:52 04/26/2015 text/html ABELARDO Morfin returns for followup of her hypothyroidism. She was noted to have an elevated TSH on her last visit and was placed on replacement therapy. She does not notice any difference on replacement therapy. There has been no hair loss or change in bowel habits. Her skin has been dry. MD [address], [place], [address], [place] [facility], 04/26/2015 18:12:37 09/28/2016 text/html Shelbie comes in f or followup of her vitamin D deficiency, hypothyroidism, and hypertension. She is in the process of trying to find a house worker general as hers is retired. She unfortunately doesn't have one and wanted to know if I could refill some of her Rx. MD [address], [place], [address], [place] [facility], 09/28/2016 17:59:15 OBGyn Episode No OBEpisode recorded.
--- OUTSIDE RECORDS SUMMARY | 2024-04-12 21:53 | XMS_ITS | Referral Summary ---
Author Organization [facility] Address [address] [place] [address] Care Team Providers Care Loan Assistant Name Role Phone Kyle Salcedo MD Primary Care Provider [phone] Sadaf Coronado MD Unavailable [phone] Unknown, Notinfile Unavailable Unavailable Encounters Date Type Department Care Team Description 04/11/2024 Telephone [facility] Medical Group Cardiology [address] [place] [address] Sarmad Shetty MD Chest Pain; sternum soreness from Last 3 Months Allergies Active Allergy Reactions Criticality Noted Date [...] Problem Noted Date Diagnosed Date CAD in [place] artery 08/23/2022 Assessment & Plan (11/12/2023 2:44 [...] 04/10/2022 Assessment & Plan (04/10/2022 10:29 AM MEDICAL LAB SPECIALIST): Labs today Referrals for DEXA, MMG, COLO [...] therapy Assessment & Plan (04/10/2022 10:33 AM MEDICAL LAB SPECIALIST): Reviewed today, elevated We discussed diet and [...] 12/18/2017 04/04/2019 Arthralgia of hip 03/28/2016 04/10/2022 Immunizations Name Administration Dates Next Due Influenza, Quadrivalent, Quiana l Culture-based MDCK, Preservative Free, Antibiotic Free, Intramuscular 01/20/2022,12/16/2019 Influenza, Quadrivalent, Spl it, Preservative Free, Intramuscular 01/14/2021,11/26/2014,11/26/2013 Influenza, Unspecified 11/26/2018,11/26/2018 Moderna Sars-cov-2 Bivalent Vaccine 50 Mcg/0.5 mL (12+ YRS)-Blue/Frank 01/05/2022 Pfizer SARS-CoV-2 Monovalent Vaccination (12+ Yrs) PURPLE 12/14/2020 Tdap 05/19/2022,09/26/2014 Social History Tobacco Use Types Packs/Day Years [...] on file Legal Sex Female 3:49 AM MEDICAL LAB SPECIALIST Gender Identity Female 12/21/2017 12:29 PM CDT Sexual Orientation Not on file Last Filed Vital Signs Vital Sign Reading Time Taken Comments Blood Pressure 149/87 11/12/2023 2:12 PM CDT Pulse 79 11/12/2023 2:12 PM CDT Temperature 37.1 C (98.8 F) 02/16/2023 8:49 AM MEDICAL LAB SPECIALIST Respiratory Rate 16 10/23/2022 9:27 AM CDT Oxygen Saturation 98% 02/16/2023 8:49 AM MEDICAL LAB SPECIALIST Inhaled Oxygen Concentration - - Weight 72.6 kg (160 lb) 11/12/2023 2:12 PM CDT Height 167.6 cm (5' 6 ) 11/12/2023 2:12 PM CDT Body Mass Index 25.82 11/12/2023 2:12 PM CDT Plan of Treatment Scheduled Procedures Name Priority Associated Diagnoses Date/Ti il COLONOSCOPY Colon cancer screening Gastroesophageal reflux disease, unspecified whether esophagitis present ESOPHAGOGASTRODUODENOSCOPY Colon cancer screening Gastroesophageal reflux disease, unspecified whether esophagitis present ESOPHAGOGASTRODUODENOSCOPY Gastroesophageal reflux disease with esophagitis without hemorrhage COLONOSCOPY Encounter for screening colonoscopy Procedures Procedure Name Priority Date/Time Associated Diagnosis Comments MAMMOGRAPHY Routine 02/26/2014 PAP SMEAR WITH HPV Routine 02/26/2014 from Last 3 Months or Most Recently Relevant to Health Maintenance Results * PAP SMEAR WITH HPV (02/26/2014) Pap smear Normal us Historical Provider MD HEALTH MAINTENANCE Final Result * MAMMOGRAPHY (02/26/2014) Mammogram Normal Historical Provider MD HEALTH MAINTENANCE Final Result from Last 3 Months or Most Recently Relevant to Health Maintenance [facility] [employer] [employer] Address: [facility] [id number] [place] [address] [facility] [employer] Address[facility] [address] [place] [address] [facility] [employer] Address: [address] [place] [address] [employer] [employer] [employer] Address: [facility] [id number] [place] [address] [facility] [employer] Address: [address] [place] [address] [facility] [employer] Address: [address] [place] [address] Advance Directives For more information, please contact: [phone] Documents on File Type Date Recorded Patient Websphere Commerce Consultant Expl anation ADVANCE DIRECTIVE 08/23/2022 6:56 AM Power of Pest Control Specialist-Medical * Full Code (Latest Code Status on File) Date Activated Date Inactivated Comments 08/23/2022 12:43 PM 08/30/2022 3:08 PM * Full Code Date Activated Date Inactivated Comments 08/23/2022 12:43 PM 08/23/2022 12:43 PM * Full Code Date Activated Date Inactivated Comments 04/03/2019 11:00 PM 04/07/2019 8:17 PM Care Teams Loan Assistant Relationship Specialty Start Date End Date Kyle Salcedo MD [address] [facility] [address] [place] [address] PCP - General Internal Medicine 12/18/17 Sadaf Coronado MD [address] [facility] [id number] [place] [address] Cardiothoracic Surgery 08/30/22 Unknown, Notinfile 08/30/22
--- OUTSIDE RECORDS SUMMARY | 2024-04-12 21:53 | XMS_ITS | Patient Health Summary ---
Author Organization [facility] Address [address] [place] [address] Care Team Providers Care Railroad Yard Worker Name Role Phone Unavailable Primary Care Provider Unavailabl e Note from [facility],non-owned Affiliates and Associated Physician Practices is amultiple site organization consisting of ambulatory clinics and hospital sitesin [place], [place], [place] and [place]. This disclosure is being madepursuant to the Care Everywhere program and may not contain all information available regarding this patient. Last updated 17.[facility] Allergies * Meperidine(Other) Medications * Be aware that medications may not be up to date on this document. Alwaysverify current medications with the patient. * ALPRAZolam (XANAX) 0.5 MG tablet alprazolam 0.5 mg tablet * atenolol (TENORMIN) 25 MG tablet atenolol 25 mg tablet * levothyroxine (SYNTHROID) 100 MCG tablet levothyroxine 100 mcg tablet TAKE ONE TABLET BY MOUTH EVERY DAY * benzonatate (TESSALON) 200 MG capsule(Started 02/11/2019) Take 1 capsule by mouth 3 times daily as needed for Cough Active Problems No known active problems Immunizations * INFLUENZA VACCINE, QUADR. (FLUZONE; FLULAVAL; FLUARIX; AFLURIA QUADRIVALENT; 6MO+), 0.5 ML (IIV4)(Given 01/14/2021) Social History Tobacco Use Types Packs/Day Years Used Date Smoking Tobacco: Former Smokeless Tobacco: Never Sex and Gender Information Value Date Recorded Sex Assigned at Not on file Gender Identity Not on file Sexual Orientation Not on file Last Filed Vital Signs Vital Sign Reading Time Taken Comments Blood Pressure 136/88 02/11/2019 6:04 PM FOILING MACHINE OPERATOR Pulse 70 02/11/2019 6:04 PM FOILING MACHINE OPERATOR Temperature 36.8 C (98.3 F) 02/11/2019 6:04 PM FOILING MACHINE OPERATOR Respiratory Rate 16 02/11/2019 6:04 PM FOILING MACHINE OPERATOR Oxygen Saturation 97% 02/11/2019 6:04 PM FOILING MACHINE OPERATOR Inhaled Oxygen Concentration - - Weight 74.8 kg (165 lb) 02/11/2019 6:04 PM FOILING MACHINE OPERATOR Height 167.6 cm (5' 6 ) 02/11/2019 6:04 PM FOILING MACHINE OPERATOR Body Mass Index 26.63 02/11/2019 6:04 PM FOILING MACHINE OPERATOR
--- OUTSIDE RECORDS SUMMARY | 2024-04-12 21:53 | XMS_ITS | Referral Summary ---
Author Organization [facility] Address [address] [place] [address] Care Team Providers Care Quencher Operator Name Role Phone Unavailable Primary Care Provider Unavailabl e Source Comments [facility],non-owned Affiliates and Associated Physician Practices is amultiple site organization consisting of ambulatory clinics and hospital sitesin [place], [place], [place] and [place]. This disclosure is being madepursuant to the Care Everywhere program and may not contain all information available regarding this patient. Last updated 17.[facility] [employer] Allergies Active Allergy Reactions Criticality Noted Date [...] Comments Blood Pressure 136/88 02/11/2019 6:04 PM AUTISTIC TEACHER Pulse 70 02/11/2019 6:04 PM AUTISTIC TEACHER Temperature 36.8 C (98.3 F) 02/11/2019 6:04 PM AUTISTIC TEACHER Respiratory Rate 16 02/11/2019 6:04 PM AUTISTIC TEACHER Oxygen Saturation 97% 02/11/2019 6:04 PM AUTISTIC TEACHER Inhaled Oxygen Concentration - - Weight 74.8 kg (165 lb) 02/11/2019 6:04 PM AUTISTIC TEACHER Height 167.6 cm (5' 6 ) 02/11/2019 6:04 PM AUTISTIC TEACHER Body Mass Index 26.63 02/11/2019 6:04 PM AUTISTIC TEACHER Plan of Treatment Not on file
--- OUTSIDE RECORDS SUMMARY | 2024-04-12 21:53 | XMS_ITS | Encounter Summary ---
Author Organization [facility] Healthcare Address [address] [place] [address] Care Team Providers Care Feature Writer Name Role Phone Kyle Salcedo MD Primary Care Provider [phone] Sadaf Coronado MD Unavailable [phone] Unknown, Notinfile Unavailable Unavailable Reason for Referral * Diagnostic Imaging (Routine) - Authorized Specialty Diagnoses / Procedures Referred By Contac t Referred To Contact Diagnoses CAD in [place] artery Coronary artery disease of [place] heart with stable angina pectoris, unspecified vessel or lesion type (HCC) Chest pain, unspecified type Procedures NM MPI SPECT (Rest and/or Stress) Multiple Studies Sarmad Shetty MD [address] [address] Phone: tel: fax: [facility] Medical Group Cardiology [address] [facility] [address] [place] [address] Phone: tel: fax: Referral ID Status Reason Start Date Expiration Date V isits Requested Visits Authorized [id number] Authorized 04/11/2024 10/08/2024 1 1 BODY REPAIRER FIBERGLASS Reason for Visit * Reason Onset Date Comments Chest Pain 04/11/2024 sternum soreness 04/11/2024 Encounter Details Date Type Department Care Team (Late st Contact Info) Description 04/11/2024 Telephone [facility] Medical Group Cardiology [address] [place] [address] Sarmad Shetty MD [address] [facility] [address] [place] [address] Chest Pain; sternum soreness Social History Tobacco Use Types Packs/Day Years Used Date Smoking Tobacco: Former Cigarettes 0.1 42.1 S tarted: 1983 Smokeless Tobacco: Never Alcohol Use Standard Drinks/Week Comments Yes 0 [...] on file Legal Sex Female 3:49 AM AUTO BODY REPAIRER FIBERGLASS Gender Identity Female 12/21/2017 12:29 PM CDT Sexual Orientation Not on file documented as of this encounter Miscellaneous Notes * Telephone Encounter - Britt Fuentes RN - 04/11/2024 4:10 PM AUTO BODY REPAIRER FIBERGLASS Spoke with pt, reviewed message from DK and she verbalized understanding. Scheduled stress test forMonday and f/u for DK next week as well. BODY REPAIRER FIBERGLASS * Telephone Encounter - Britt Fuentes RN - 04/11/2024 11:00 AM AUTO BODY REPAIRER FIBERGLASS Spoke with pt, she has had 2 instances of CP in the last day that she is concerned about. Pt said last night before bed she has what felt like some gas pain-pressure and soreness behind her heart that lasted around 10 minutes. Pt got up walked, moved around and burped and the pain subsided. Pt saidagain this morning while walking her dog she had another episode of chest pressure and soreness that lasted a little less than 10 minutes and went away on its own. Pt said the pain this morning was across her shoulders, she had no SOB and no diaphoresis. Pt said her apple watch showed a normal HR. Pt said all of this was a weird feeling and not classic CP but because there were two instances so close together she was concerned. Pt said she it could have been some anxiety as she is dealing with some issues at work but she didn't know if it could also be her heart. Pt said she was supposed to see DK in January and she had to be rescheduled to May. Pt is concerned with the next appt so far away and/or if any testing should be done? We discussed when it is appropriate to report to the ED with chest pain and pt verbalized understanding. Will forward to DK. Please advise, thank you! BODY REPAIRER FIBERGLASS * Telephone Encounter - Viv Stearns - 04/11/2024 10:05 AM CST Pt states that she has been experiencing intermittent chest pain and sternum soreness. States that the pain comes and goes and does not last long. States that she has had open heart surgery a few years ago. Patient is concerned and requesting a call back. Please advise. Thank you. Contact [phone] BODY REPAIRER FIBERGLASS documented in this encounter Plan of Treatment Scheduled Orders Name Type Priority Associated Diagnoses Orde r Schedule NM MPI SPECT (Rest and/or Stress) Multiple Studies Imaging Schedule Routine, Read Routine (OP Routine) CAD in [place] artery Coronary artery disease of [place] heart with stable angina pectoris, unspecified vessel or lesion type (HCC) Chest pain, unspecified type Expected: 04/11/2024, Expires: 04/11/2025 Scheduled Procedures Name Priority Associated Diagnoses Date/Ti ny COLONOSCOPY Colon cancer screening Gastroesophageal reflux disease, unspecified whether esophagitis present ESOPHAGOGASTRODUODENOSCOPY Colon cancer screening Gastroesophageal reflux disease, unspecified whether esophagitis present ESOPHAGOGASTRODUODENOSCOPY Gastroesophageal reflux disease with esophagitis without hemorrhage COLONOSCOPY Encounter for screening colonoscopy documented as of this encounter Visit Diagnoses Diagnosis Coronary artery disease of [place] heart with stable angina pectoris, unspecified vessel or lesion type (HCC) Chest pain, unspecified type documented in this encounter Care Teams Feature Writer Relationship Specialty Start Date End Date Kyle Salcedo MD [address] [address] PCP - General Internal Medicine 12/18/17 Sadaf Coronado MD [address] [facility] [id number] [place] [address] Cardiothoracic Surgery 08/30/22 Unknown, Notinfile 08/30/22 documented as of this encounter
[2024-04-12 22:22] LABS: Basophils Percent Auto 0.6 % (0.2-1.2); Eosinophils Absolute Auto 0.1 K/mm3 (0-0.3); Eosinophils Percent Auto 2.3 % (0-4.4); Hemoglobin 14.2 g/dL (12.0-15.0); Immature Granulocyte Absolute 0.01 K/mm3 (0.00-0.031); Immature Granulocyte Percent A 0.2 % (0-0.5); Lymphocytes Percent Auto 37.7 % (18.3-44.2); Mean Corpuscular HGB Conc 33.8 g/dl (32-36); Mean Corpuscular Hemoglobin 31.1 pg (26-34); Mean Corpuscular Volume 91.9 fl (80-100); Mean Platelet Volume 9.5 fl (7.4-10.4); Monocytes Absolute Auto 0.4 K/mm3 (0.1-0.6); Monocytes Percent Auto 8.4 % (2.6-8.5); Neutrophils Absolute Auto 2.4 K/mm3 (1.3-6.7); Neutrophils Percent Auto 50.8 % (45.5-73.1); Platelet Count Result 235 k/mm3 (150-375); Red Blood Count 4.57 M/mm3 (4.2-5.4); Red Cell Distribution Width 13.3 % (11.5-14.5); White Blood Count 4.8 K/mm3 (4.5-10.0)
[2024-04-12 22:34] LABS: INR 0.9; Prothrombin Time 12.8 Seconds (11.1-14.7)
[2024-04-12 22:35] LABS: Alanine Aminotransferase 30 U/L (6-35); Albumin Level 4.2 g/dL (3.5-5.1); Alkaline Phosphatase 77 U/L (38-126); Anion Gap 11 mmol/L (4-12); Aspartate Amino Transferase 27 U/L (14-36); Bilirubin,Total 0.3 mg/dL (0.2-1.3); Blood Urea Nitrogen 20 mg/dL (7-17); Calcium 9.2 mg/dL (8.4-10.2); Carbon Dioxide 26 mmol/L (22-30); Chloride 105 mmol/L (98-107); Estimated CRCL calculation 77 ml/min; Estimated Glomerular Filt Rate > 60; Glucose 106 mg/dL (65-110); Lipase 126 U/L (23-300); Partial Thromboplastin Time 27.4 Seconds (22.3-36.8); Potassium 4.3 mmol/L (3.4-5.0); Sodium 142 mmol/L (137-145)
[2024-04-12 22:47] LABS: NT Pro B Type Natriuretic Pept 41 pg/mL (19.9-100); Troponin I < 0.012 ng/mL (0.000-0.034)
[2024-04-12 22:50] LABS: D Dimer < 0.27 ug/mL (<0.48)
[2024-04-12 23:43] LABS: Add Urine Microscopic? YES; Appearance Urine Cloudy (Clear); Bacteria Urine None Seen /hpf; Bilirubin Urine Negative (Negative); Blood Urine Negative (Negative); Color Urine Yellow (Yellow); Glucose Urine UA Negative (Negative); Ketones Urine Trace mg/dL (Negative); Leukocyte Esterase Ur Negative LEU/UL (Negative); Nitrate Urine Negative (Negative); Non Pathogenic Casts 0-2; Protein Urine Negative (Negative); RBC Urine 0-2 /hpf (0-2); Squamous Epithelial Cell Urine None Seen /hpf (Few); Urobilinogen Urine 0.2 mg/dL (<2.0); WBC Urine 0-5 /hpf (0-3)
[2024-04-12 23:56] VITALS: PULSE 60; RESP 15; O2SAT 94
[2024-04-13] VITALS (100 sets, daily range): BP systolic 81–160; BP diastolic 54–106; PULSE 58–78; RESP 8–26; TEMP 36.6; O2SAT 92–100; BMI 25.2
--- NOTE | 2024-04-13 00:32 | ECG_ITS ---
Test Date: 2024-04-13 00:34:52 Measurements Intervals [place] Rate: 66 P: 35 [place]: 172 QRS: 47 QRSD: 86 T: 70 QT: 400 QTc: 421 Interpretive Statements SINUS RHYTHM CONSIDER RIGHT VENTRICULAR CONDUCTION DELAY NONSPECIFIC ST-T WAVE ABNORMALITY- LAT/HIGH LAT LEADS BORDERLINE ECG No previous ECG available for comparison Electronically Signed On 04-13-2024 08:18:32 PAPER SALES MANAGER by Hernandez Welch D.O.
[2024-04-13] MEDS: NITROGLYCERIN OINTMENT 1 INCH DOSE TRANSDERM (00:48)
--- NOTE | 2024-04-13 00:59 | ECG_ITS ---
Test Date: 2024-04-13 01:02:39 Measurements Intervals [place] Rate: 67 P: 41 [place]: 164 QRS: 56 QRSD: 97 T: 106 QT: 409 QTc: 433 Interpretive Statements SINUS RHYTHM INCOMPLETE RIGHT BUNDLE BRANCH BLOCK ST DEVIATION AND MODERATE T-WAVE ABNORMALITY IN ANTEROLAT/HIGH LAT LEADS, CONSIDER ISCHEMIA ABNORMAL ECG Compared to ECG 04/13/2024 00:34:52 Possible ischemia now present Electronically Signed On 04-13-2024 08:19:13 STENCIL SPRAYER by Hernandez Welch D.O.
[2024-04-13 01:16] LABS: Troponin I < 0.012 ng/mL (0.000-0.034)
[2024-04-13] MEDS: diazePAM INJ (*CRX) 10 MG/2 ML SYRINGE 5 MG IV PUSH (01:18)
[2024-04-13] MEDS: HEPARIN SODIUM 5,000 UNITS/ML VIAL 4000 UNITS IV PUSH (01:19)
[2024-04-13] MEDS: MORPHINE SULFATE (*CRX) 4 MG/ML INJ IV PUSH (01:20)
[2024-04-13] MEDS: NITROGLYCERIN/D5W 200 MCG/ML 50 MG/250 ML BTL IV CONT (01:20)
[2024-04-13] MEDS: HEPARIN SOD/D5W 100 UNITS/ML 25,000 UNITS/250 ML BAG 8 UNITS IV CONT (01:27)
--- NOTE | 2024-04-13 01:46 | ECG_ITS ---
Test Date: 2024-04-13 01:51:46 Measurements Intervals [place] Rate: 58 P: 34 [place]: 177 QRS: 58 QRSD: 83 T: 74 QT: 419 QTc: 413 Interpretive Statements SINUS BRADYCARDIA INCOMPLETE RIGHT BUNDLE BRANCH BLOCK BORDERLINE ST-T WAVE ABNORMALITY- HIGH LATERAL LEADS BORDERLINE ECG Compared to ECG 04/13/2024 01:02:39 HEART RATE HAS DECREASED Possible ischemia no longer present Electronically Signed On 04-13-2024 08:19:55 CORPORATE TRAVEL EXPERT by Hernandez Welch D.O.
--- NOTE | 2024-04-13 01:47 | PC.NURSE ---
patient nitroglycerin infusion increased 5mcg and verified by 2nd RN Radha for a total of 10mcg
--- NOTE | 2024-04-13 01:48 | ECG_ITS ---
Test Date: 2024-04-13 03:20:06 Measurements Intervals [place] Rate: 68 P: 37 [place]: 166 QRS: 51 QRSD: 96 T: 78 QT: 425 QTc: 452 Interpretive Statements SINUS RHYTHM INCOMPLETE RIGHT BUNDLE BRANCH BLOCK NONSPECIFIC ST & T-WAVE ABNORMALITY- ANTEROLAT/HIGH LAT LEADS BORDERLINE ECG Compared to ECG 04/13/2024 01:51:46 HEART RATE HAS INCREASED Electronically Signed On 04-13-2024 08:20:28 SHELLS INSPECTOR by Hernandez Welch D.O.
[2024-04-13] MEDS: ACETAMINOPHEN 500 MG TABLET 1000 MG PO (01:55)
--- NOTE | 2024-04-13 03:29 | P.HP_ITS ---
H&P: HPI History of Present Illness Date/Time: 04/13/24 03:29 Chief Complaint: Chest pain Narrative: 64-year-old female with a past medical history of coronary artery disease status post 2 vessel CABG July 2022, intermittent tobacco use, anxiety, hypothyroidism and dyslipidemia who presented to the ER from home via EMS due to chest pain. The patient reports that she has been having intermittent chest pain for the last 2 days. She reports that the pain felt like it was up binder heart and was deepened aching nerve like pain. The pains would last for 10-15 minutes. They were occurring at rest with no precipitating factors. She reported that 1 time she did become diaphoretic and sweaty but she thought that this was due to having an anxiety attack due to the pain. She had called her founder & ceo office to report that she had been having the symptoms on Sunday and set up for an outpatient stress test. However she developed pain again this evening that was even more intense in lasted for longer duration. She reported that this time the pain definitely localized more to the chest after originating between the shoulder blades. She has been compliant with her anti-platelet medications. She received full-dose aspirin and sublingual nitro EN route with improvement in chest pain. When she arrived to the ER patient's initial EKG and troponin were negative. However she had recurrence of her chest pain and had EKG which demonstrated dynamic changes in leads 1 and aVL, V4 and V5 into a lesser extent V6. Patient was started on heparin drip and nitro drip. Her repeat EKG returned to normal. Initially patient's pain improved with this management and her repeat EKG returned to normal. But she again had recurrent chest pain at the time of my evaluation and again demonstrated ST depression and T-wave abnormalities in V4 V5 but to lesser extent than earlier. Subsequently patient's nitro drip was increased in she was admitted to the ICU with Cardiology consult. The patient reports that when she had her 1st diagnosis of coronary artery disease she was diagnosed when she went to the ER for GI symptoms from norovirus. She has never in her life had pain. As such she has difficulty describing the nature of the pain. Review of Systems 2 Review of Systems: 12 systems were reviewed with pertinent positives and negatives per HPI. Except as documented in the HPI, all other systems were reviewed and are negative. [facility] Past Medical History Medical History (Updated 04/13/24 @ 04:26 by Zuly Griffin DO) GERD (gastroesophageal reflux disease) Seasonal allergies Fracture of right tibia and fibula (~1991) Skiing accident Closed right ankle fracture (~2022) Compression fracture of T10 vertebra (~1999) Falling on ice Essential hypertension Anxiety Hypothyroidism Dyslipidemia Coronary artery disease Surgical History Surgical History (Updated 04/13/24 @ 04:26 by Zuly Griffin DO) History of sinus surgery History of two vessel coronary artery bypass graft (08/18/22) Family History Family History Father High cholesterol Hypertension Cerebrovascular accident Diabetes mellitus Cancer Mother High cholesterol Hypertension Heart disease Heart attack Cancer Sibling High cholesterol Hypertension Heart disease Diabetes mellitus Social History Social History (Updated 04/13/24 @ 04:27 by Zuly Griffin DO) Social History: She lives at home with her and 3 dogs. She does not have any children. She works in finance. She used to smoke a pack of cigarettes per day and still occasionally smokes if she goes out to have drinks. She drinks 1-2 glasses of wine 5 days a week. She denies illicit substance use. Code status: Full code Surrogate decision maker: Smoking packs per day: 1 Smoking cigarettes per day: 20.0 Years smoked: 10 Smoking pack-years: 10.00 Smoking status: Current some day smoker Tobacco type: cigarettes Additional smoking assessment comments: inconsistent for approx 10 years Gender identity (if verbalized by the patient): Female Meds Home Medications and Allergies Home Medications ?Medication ?Instructions ?Recorded ?Confirmed ?Type alprazolam 0.5 mg tablet 0.25 mg PO QHS PRN anxiety 04/13/24 04/13/24 History atenolol 25 mg tablet 12.5 mg PO Q12H 04/13/24 04/13/24 History atorvastatin 80 mg tablet 80 mg PO QPM 04/13/24 04/13/24 History clopidogrel 75 mg tablet 75 mg PO QHS 04/13/24 04/13/24 History fluoxetine 10 mg capsule 10 mg PO QAM 04/13/24 04/13/24 History levothyroxine 100 mcg tablet 50 mcg PO QAM 04/13/24 04/13/24 History Allergies Allergy/AdvReac Type Severity Reaction Status Date / Time meperidine Allergy Intermediate Jittery Verified 04/13/24 04:28 potato Allergy Other Verified 04/13/24 04:28 soy Allergy Wheezing Verified 04/13/24 04:28 Vital Signs Vital Signs - 24 hr 04/12/24 21:50 04/12/24 21:51 04/12/24 21:51 Pulse Rate 68 69 Respiratory Rate 20 Blood Pressure 132/89 Pulse Oximetry 98 98 Oxygen Delivery Room Air 04/12/24 23:56 04/13/24 00:52 04/13/24 01:20 Pulse Rate 60 69 62 Respiratory Rate 15 17 Blood Pressure 160/96 H 114/68 Pulse Oximetry 94 98 Oxygen Delivery 04/13/24 01:27 04/13/24 01:30 04/13/24 01:31 Pulse Rate 62 65 64 Respiratory Rate 12 9 L 8 L Blood Pressure 127/83 Pulse Oximetry 98 95 98 Oxygen Delivery 04/13/24 01:35 04/13/24 01:40 04/13/24 01:43 Pulse Rate 64 68 63 Respiratory Rate 10 L 14 Blood Pressure 134/81 145/93 H 143/87 H Pulse Oximetry 96 97 99 Oxygen Delivery 04/13/24 01:44 04/13/24 01:44 04/13/24 01:45 Pulse Rate 69 62 67 Respiratory Rate 11 L 22 H Blood Pressure 137/94 H 137/94 H Pulse Oximetry 98 99 Oxygen Delivery 04/13/24 01:47 04/13/24 01:48 04/13/24 01:50 Pulse Rate 63 65 62 Respiratory Rate 13 23 H 13 Blood Pressure 115/84 120/87 122/71 Pulse Oximetry 99 99 99 Oxygen Delivery 04/13/24 01:52 04/13/24 01:54 04/13/24 01:56 Pulse Rate 60 66 70 Respiratory Rate 9 L 17 16 Blood Pressure 113/67 116/90 122/90 Pulse Oximetry 99 99 99 Oxygen Delivery 04/13/24 01:57 04/13/24 01:58 04/13/24 02:00 Pulse Rate 64 60 61 Respiratory Rate 24 H 13 11 L Blood Pressure 120/80 128/84 Pulse Oximetry 99 99 100 Oxygen Delivery 04/13/24 02:01 04/13/24 02:02 04/13/24 02:04 Pulse Rate 61 62 63 Respiratory Rate 11 L 12 14 Blood Pressure 119/79 109/73 Pulse Oximetry 100 99 98 Oxygen Delivery 04/13/24 02:06 04/13/24 02:08 04/13/24 02:10 Pulse Rate 61 62 60 Respiratory Rate 8 L 10 L 11 L Blood Pressure 115/72 115/68 116/69 Pulse Oximetry 97 97 97 Oxygen Delivery 04/13/24 02:12 04/13/24 02:14 04/13/24 02:15 Pulse Rate 61 62 61 Respiratory Rate 11 L 11 L 12 Blood Pressure 111/71 110/72 Pulse Oximetry 97 98 98 Oxygen Delivery 04/13/24 02:16 04/13/24 02:18 04/13/24 02:20 Pulse Rate 62 61 63 Respiratory Rate 11 L 12 12 Blood Pressure 116/74 107/71 112/69 Pulse Oximetry 98 98 97 Oxygen Delivery 04/13/24 02:22 04/13/24 02:24 04/13/24 02:26 Pulse Rate 61 61 61 Respiratory Rate 12 12 12 Blood Pressure 116/74 117/70 112/63 Pulse Oximetry 97 97 97 Oxygen Delivery 04/13/24 02:28 04/13/24 02:30 04/13/24 02:31 Pulse Rate 62 61 62 Respiratory Rate 11 L 12 12 Blood Pressure 107/67 114/67 Pulse Oximetry 97 97 99 Oxygen Delivery 04/13/24 02:32 04/13/24 02:35 04/13/24 02:37 Pulse Rate 61 62 61 Respiratory Rate 12 12 15 Blood Pressure 116/69 113/66 115/59 L Pulse Oximetry 98 100 99 Oxygen Delivery 04/13/24 02:38 04/13/24 02:40 04/13/24 02:42 Pulse Rate 63 62 62 Respiratory Rate 11 L 12 12 Blood Pressure 108/56 L 104/56 L 108/60 Pulse Oximetry 98 98 98 Oxygen Delivery 04/13/24 02:44 04/13/24 02:45 04/13/24 02:46 Pulse Rate 63 61 61 Respiratory Rate 12 15 13 Blood Pressure 103/61 95/60 L Pulse Oximetry 98 98 98 Oxygen Delivery 04/13/24 02:48 04/13/24 02:50 04/13/24 02:52 Pulse Rate 62 62 62 Respiratory Rate 12 12 12 Blood Pressure 105/57 L 107/61 100/55 L Pulse Oximetry 97 97 98 Oxygen Delivery 04/13/24 02:54 04/13/24 02:56 04/13/24 03:25 Pulse Rate 64 64 67 Respiratory Rate 12 11 L Blood Pressure 101/57 L 100/58 L 134/87 Pulse Oximetry 97 98 Oxygen Delivery Exam 2 Narrative: Weight 75 kg BMI 26.7 Const: Other: Well-developed, well-nourished, no acute distress HENMT: Other: Mucous membranes are tacky, no oral pharyngeal erythema, head is normocephalic atraumatic Eyes: Other: Pupils are equal and reactive, no scleral icterus, no conjunctival pallor Neck: Other: No lymphadenopathy, no thyromegaly Resp: Other: Clear to auscultation bilaterally, no increased work of breathing Cardio: Other: Regular rate, regular rhythm, 2+ bilateral radial pedal pulses GI: Other: Soft, nontender, nondistended, positive bowel sounds Skin: Other: Non jaundice, no pallor Neuro: Other: Alert oriented, speech is clear, no facial asymmetry, moves all extremities equally, no localizing neurologic deficits noted during the course of conversation Extrem: Other: No clubbing, cyanosis or edema Psych: Other: Appropriate mood and affect, pleasant and cooperative, judgment and insight intact H&P: Results Labs Labs: Laboratory Tests 04/12/24 22:17 04/12/24 22:17 04/12/24 04/12/24 04/13/24 22:17 23:29 00:48 WBC 4.8 RBC 4.57 Hgb 14.2 Hct 42.0 MCV 91.9 MCH 31.1 MCHC 33.8 RDW 13.3 Plt Count 235 MPV 9.5 Immature Gran % (Auto) 0.2 Neut % (Auto) 50.8 Lymph % (Auto) 37.7 [place] % (Auto) 8.4 Eos % (Auto) 2.3 Baso % (Auto) 0.6 Lymph # (Auto) 1.80 [place] # (Auto) 0.4 Eos # (Auto) 0.1 Baso # (Auto) 0.0 Abs Immat Gran (auto) 0.01 Absolute Neuts (auto) 2.4 Absolute Nucleated RBC 0.000 Nucleated RBC % 0.0 PT 12.8 INR 0.9 APTT 27.4 D-Dimer < 0.27 Sodium 142 Potassium 4.3 Chloride 105 Carbon Dioxide 26 Anion Gap 11 BUN 20 H Creatinine 0.60 L Estim Creat Clear Calc 77 Estimated GFR > 60 Glucose 106 Calcium 9.2 Total Bilirubin 0.3 AST 27 ALT 30 Alkaline Phosphatase 77 Troponin I < 0.012 < 0.012 NT-Pro-B Natriuret Pep 41 Total Protein 7.0 Albumin 4.2 Lipase 126 Urine Color Yellow Urine Appearance Cloudy H Urine pH 7.0 Ur Specific [place] 1.020 Urine Protein Negative Urine Glucose (UA) Negative Urine Ketones Trace H Ur Blood (Man) Negative Urine Nitrate Negative Urine Bilirubin Negative Urine Urobilinogen 0.2 Leukocyte Esterase Rfl Negative Urine RBC 0-2 Urine WBC 0-5 Ur Squamous Epith Cells None seen Urine Bacteria None seen Urine Casts 0-2 Impressions Chest X-Ray 04/12/24 23:45 IMPRESSION: No focal infiltrate or effusion. Assessment and Plan Assessment and plan (1) Unstable angina: Code(s): I20.0 - Unstable angina Status: Acute Plan Patient has unstable angina a with dynamic EKG changes during episodes of chest pain. Patient's EKG changes improved with titration of nitroglycerin drip. Patient been started on a heparin drip per protocol. Cardiology has been consulted. Patient is troponins have been negative x2. However, despite negative troponins patient does continue to have intermittent chest pain/back pain consistent with anginal equivalent with associated EKG changes as mentioned. Will continue patient's home Plavix aspirin and atorvastatin. Will check lipid panel. Will make patient NPO until evaluated by Cardiology. Patient will be admitted to the ICU and the thinner sprayer has been consulted. Will repeat EKGs as needed if recurrence of chest pain. 35 minute spent in critical care activities. Due to a high probability of clinically significant, life threatening deterioration, the patient required my highest level of preparedness to intervene emergently and I personally spent this critical care time directly and personally managing the patient. This critical care time included obtaining a history; examining the patient; pulse oximetry; ordering and review of studies; arranging urgent treatment with development of a management plan; evaluation of patient's response to treatment; frequent reassessment; and discussions with other providers. It was exclusive of separately billable procedures and treating other patients and teaching time. Please see Assessment and Plan section and the rest of the note for further information on patient assessment and treatment. Quality VTE Prophylaxis VTE prophylaxis: pharmacologic ordered (Heparin drip per protocol) Hospitalist [facility] Advance Care Plan I have confirmed that the patient's Advanced Care Plan is present, code status is documented, or surrogate decision maker is listed in patient medical record.: Yes Medication Reconciliation I have utilized all available resources to obtain, update and review the patients current medications (includes all prescriptions, OTC, herbals, cannabis, and nutritional supplements).: Yes
[2024-04-13] MEDS: HYDROmorphone HCL INJ (*CRX) 1 MG/ML SYR 0.5 MG IV PUSH (03:30)
--- NOTE | 2024-04-13 04:05 | PC.NURSE ---
This patient, Shelbie Lucas, was admitted to Intensive Care Unit-5. Patient/family oriented to hospital policies and general routines including ID bracelet, bed and alarms, visiting hours, pain management, procedures, bathroom and other care routines, personal items, smoking policy, room service/diet, and visiting hours. Information on how to activate the Rapid Response Team has been discussed. Patient/Family are encouraged to report perceived risks to care and to ask questions if they do not understand what they are told or what they should do.
[2024-04-13 04:19] LABS: Troponin I < 0.012 ng/mL (0.000-0.034)
[2024-04-13 04:44] LABS: Cholesterol 166 mg/dL (0-200); HDL Direct 57 mg/dL; Triglycerides 133 mg/dL (<150)
[2024-04-13 04:55] LABS: LDL Cholesterol Direct 79 mg/dL
[2024-04-13 06:07] LABS: MRSA (PCR) NOT DETECTED (NOT DETECTE)
[2024-04-13] MEDS: LEVOTHYROXINE SODIUM 50 MCG TABLET PO (07:49)
[2024-04-13 08:16] LABS: Partial Thromboplastin Time 77.8 Seconds (22.3-36.8)
[2024-04-13] MEDS: LACTATED RINGERS 500 ML IV CONT (08:23)
--- NOTE | 2024-04-13 08:44 | ECG_ITS ---
Test Date: 2024-04-13 10:44:27 Measurements Intervals [place] Rate: 61 P: 14 [place]: 172 QRS: 10 QRSD: 95 T: 70 QT: 428 QTc: 431 Interpretive Statements SINUS RHYTHM INCOMPLETE RIGHT BUNDLE BRANCH BLOCK NONSPECIFIC ST & T-WAVE ABNORMALITY- ANTEROLAT/HIGH LAT LEADS BORDERLINE ECG Compared to ECG 04/13/2024 03:20:06 NO SIGNIFICANT CHANGE Electronically Signed On 04-13-2024 15:38:30 TRANSFER TABLE OPERATOR HELPER by Hernandez Welch D.O.
[2024-04-13 08:51] LABS: Hematocrit 43.5 % (37.0-47.0); Hemoglobin 14.2 g/dL (12.0-15.0); Mean Corpuscular HGB Conc 32.6 g/dl (32-36); Mean Corpuscular Hemoglobin 30.7 pg (26-34); Mean Corpuscular Volume 94.2 fl (80-100); Mean Platelet Volume 9.7 fl (7.4-10.4); Platelet Count Result 226 k/mm3 (150-375); Red Blood Count 4.62 M/mm3 (4.2-5.4); Red Cell Distribution Width 13.4 % (11.5-14.5); White Blood Count 5.2 K/mm3 (4.5-10.0)
[2024-04-13 09:03] LABS: Alanine Aminotransferase 27 U/L (6-35); Albumin Level 3.9 g/dL (3.5-5.1); Alkaline Phosphatase 71 U/L (38-126); Anion Gap 7 mmol/L (4-12); Aspartate Amino Transferase 35 U/L (14-36); Bilirubin,Total 0.5 mg/dL (0.2-1.3); Blood Urea Nitrogen 20 mg/dL (7-17); Calcium 8.8 mg/dL (8.4-10.2); Carbon Dioxide 28 mmol/L (22-30); Chloride 106 mmol/L (98-107); Estimated CRCL calculation 74 ml/min; Estimated Glomerular Filt Rate > 60; Glucose 100 mg/dL (65-110); Potassium 4.2 mmol/L (3.4-5.0); Sodium 141 mmol/L (137-145)
--- NOTE | 2024-04-13 09:06 | WPDCNINT ---
Assessment and Plan Assessment and plan (1) Unstable angina: Code(s): I20.0 - Unstable angina Status: Acute Assessment and Plan: -Admitted on 04/12/2024 with complains of chest pain that has been going on intermittently for the last 2 days prior to admission. Initially she felt that the pain was gas pain behind her heart which she has had for the last so many years for which she takes Pepcid. The pain lasted about 10-15 minutes. She continue have pain for the next 2 days intermittently. On the day of admission she developed chest pain which lasted for a longer duration, stated she had between her shoulder blades and substernal. Denies any nausea, vomiting, shortness of breath, diaphoresis. In the ER EKG was initially normal repeat EKG did show some ST T changes in the lateral leads. Patient was started on heparin and nitroglycerin infusion. -discussed with Cardiology, was start aspirin -patient may require cardiac catheterization in a.m. -will continue nitroglycerin heparin drip for now per Cardiology Plan DVT prophylaxis: Heparin infusion Stress ulcer prophylaxis: Not indicated Nutrition: Heart healthy diet Code Status: Full code Critical Care Time Spent: 47 minutes Discuss with Cardiology Discuss with patient and updated with her condition and plan of care. Patient is aware that she will get an angiogram on Sunday , 04/14 if she remains stable. It could be done in emergency if she destabilize and Due to a high probability of clinically significant, life threatening deterioration, the patient required my highest level of preparedness to intervene emergently and I personally spent this critical care time directly and personally managing the patient. This critical care time included obtaining a history; examining the patient; pulse oximetry; ordering and review of studies; arranging urgent treatment with development of a management plan; evaluation of patient's response to treatment; frequent reassessment; and discussions with other providers. It was exclusive of separately billable procedures and treating other patients and teaching time. Please see Assessment and Plan section and the rest of the note for further information on patient assessment and treatment This dictation may have been done utilizing a voice recognition system. Attempts have been made to correct errors. However, there may be uncorrected grammatical, spelling, and recognitions errors present. Sr. Operations Manager Consult Note Consult date: 04/13/24 Reason for consult: Chest pain HPI: Shelbie Lucas is a 64 year old female with past medical history of coronary artery disease status post CABG x2 August 2022, hyperlipidemia, presented to the ED on 04/12/2024 with complains of chest pain that has been going on intermittently for the last 2 days. Initially she felt that the pain was gas pain behind her heart which she has had for the last so many years, she takes Pepcid. The pain lasted about 10-15 minutes. She continue have pain for the next 2 days intermittently, she also thought she was having an anxiety attack due to the pain. She called her logistic manager office (Dr. Shetty, here at [facility]), patient spoke to the nurse practitioner who stated that if she continues to have chest pain to come to the ER. The logistic manager office scheduled a stress test on 04/14/2024. On the day of admission she developed chest pain which lasted for a longer duration, stated she had between her shoulder blades and substernal. Denies any nausea, vomiting, shortness of breath, diaphoresis. In the ER EKG was initially normal repeat EKG did show some ST T changes in the lateral leads. Patient was started on heparin and nitroglycerin infusion. Patient was transferred to the ICU for further management Patient seen and examined this morning in the ICU, denies any chest pain at this time she says minimal discomfort when she wiggles herself or moves side to side. Denies any shortness of breath, abdominal pain, nausea, vomiting, diaphoresis. She states that the with the 1st time when she had a CABG they diagnosed her when she was here for GI symptoms. Blood pressures have been borderline, troponin x3 are negative, urine output has been low, afebrile, regular rate and rhythm. BNP was 41, troponin have been <0.012 x3 Review of Systems Review of Systems: All systems reviewed & are unremarkable except as noted in HPI and below [facility] Past Medical History Medical History (Updated 04/13/24 @ 04:26 by Zuly Griffin DO) GERD (gastroesophageal reflux disease) Seasonal allergies Fracture of right tibia and fibula (~1991) Skiing accident Closed right ankle fracture (~2022) Compression fracture of T10 vertebra (~1999) Falling on ice Essential hypertension Anxiety Hypothyroidism Dyslipidemia Coronary artery disease Surgical History Surgical History (Updated 04/13/24 @ 04:26 by Zuly Griffin DO) History of sinus surgery History of two vessel coronary artery bypass graft (08/18/22) Family History Family History Father High cholesterol Hypertension Cerebrovascular accident Diabetes mellitus Cancer Mother High cholesterol Hypertension Heart disease Heart attack Cancer Sibling High cholesterol Hypertension Heart disease Diabetes mellitus Social History Social History (Updated 04/13/24 @ 04:27 by Zuly Griffin DO) Social History: She lives at home with her and 3 dogs. She does not have any children. She works in finance. She used to smoke a pack of cigarettes per day and still occasionally smokes if she goes out to have drinks. She drinks 1-2 glasses of wine 5 days a week. She denies illicit substance use. Code status: Full code Surrogate decision maker: Smoking packs per day: 1 Smoking cigarettes per day: 20.0 Years smoked: 10 Smoking pack-years: 10.00 Smoking status: Current some day smoker Tobacco type: cigarettes Additional smoking assessment comments: inconsistent for approx 10 years Alcohol intake: current Drinks per week: 7 Substance use: never Do You Feel Safe in your Home?: Yes Lack of Transportation: No Lack of Food: Never True Current Housing: I Have Housing Concerned About Future Housing: No Difficulty Paying Gas/Electric Bills: No Difficulty Paying for Meds: No Currently Unemployed: No Education: Bachelor's Degree Difficulty w/ Childcare or Family Care: No Gender identity (if verbalized by the patient): Female Spiritual care concerns: No Meds Home Medications and Allergies Home Medications ?Medication ?Instructions ?Recorded ?Confirmed ?Type alprazolam 0.5 mg tablet 0.25 mg PO QHS PRN anxiety 04/13/24 04/13/24 History atenolol 25 mg tablet 12.5 mg PO Q12H 04/13/24 04/13/24 History atorvastatin 80 mg tablet 80 mg PO QPM 04/13/24 04/13/24 History clopidogrel 75 mg tablet 75 mg PO QHS 04/13/24 04/13/24 History fluoxetine 10 mg capsule 10 mg PO QAM 04/13/24 04/13/24 History levothyroxine 100 mcg tablet 50 mcg PO QAM 04/13/24 04/13/24 History Allergies Allergy/AdvReac Type Severity Reaction Status Date / Time meperidine Allergy Intermediate Jittery Verified 04/13/24 04:28 potato Allergy Other Verified 04/13/24 04:28 soy Allergy Wheezing Verified 04/13/24 04:28 Vital Signs Vital Signs - 24 hr 04/12/24 21:50 04/12/24 21:51 04/12/24 21:51 Pulse Rate 68 69 Respiratory Rate 20 Blood Pressure 132/89 Pulse Oximetry 98 98 Oxygen Delivery Room Air Oxygen Flow Rate 04/12/24 23:56 04/13/24 00:52 04/13/24 01:20 Pulse Rate 60 69 62 Respiratory Rate 15 17 Blood Pressure 160/96 H 114/68 Pulse Oximetry 94 98 Oxygen Delivery Oxygen Flow Rate 04/13/24 01:27 04/13/24 01:30 04/13/24 01:31 Pulse Rate 62 65 64 Respiratory Rate 12 9 L 8 L Blood Pressure 127/83 Pulse Oximetry 98 95 98 Oxygen Delivery Oxygen Flow Rate 04/13/24 01:35 04/13/24 01:40 04/13/24 01:43 Pulse Rate 64 68 63 Respiratory Rate 10 L 14 Blood Pressure 134/81 145/93 H 143/87 H Pulse Oximetry 96 97 99 Oxygen Delivery Oxygen Flow Rate 04/13/24 01:44 04/13/24 01:44 04/13/24 01:45 Pulse Rate 69 62 67 Respiratory Rate 11 L 22 H Blood Pressure 137/94 H 137/94 H Pulse Oximetry 98 99 Oxygen Delivery Oxygen Flow Rate 04/13/24 01:47 04/13/24 01:48 04/13/24 01:50 Pulse Rate 63 65 62 Respiratory Rate 13 23 H 13 Blood Pressure 115/84 120/87 122/71 Pulse Oximetry 99 99 99 Oxygen Delivery Oxygen Flow Rate 04/13/24 01:52 04/13/24 01:54 04/13/24 01:56 Pulse Rate 60 66 70 Respiratory Rate 9 L 17 16 Blood Pressure 113/67 116/90 122/90 Pulse Oximetry 99 99 99 Oxygen Delivery Oxygen Flow Rate 04/13/24 01:57 04/13/24 01:58 04/13/24 02:00 Pulse Rate 64 60 61 Respiratory Rate 24 H 13 11 L Blood Pressure 120/80 128/84 Pulse Oximetry 99 99 100 Oxygen Delivery Oxygen Flow Rate 04/13/24 02:01 04/13/24 02:02 04/13/24 02:04 Pulse Rate 61 62 63 Respiratory Rate 11 L 12 14 Blood Pressure 119/79 109/73 Pulse Oximetry 100 99 98 Oxygen Delivery Oxygen Flow Rate 04/13/24 02:06 04/13/24 02:08 04/13/24 02:10 Pulse Rate 61 62 60 Respiratory Rate 8 L 10 L 11 L Blood Pressure 115/72 115/68 116/69 Pulse Oximetry 97 97 97 Oxygen Delivery Oxygen Flow Rate 04/13/24 02:12 04/13/24 02:14 04/13/24 02:15 Pulse Rate 61 62 61 Respiratory Rate 11 L 11 L 12 Blood Pressure 111/71 110/72 Pulse Oximetry 97 98 98 Oxygen Delivery Oxygen Flow Rate 04/13/24 02:16 04/13/24 02:18 04/13/24 02:20 Pulse Rate 62 61 63 Respiratory Rate 11 L 12 12 Blood Pressure 116/74 107/71 112/69 Pulse Oximetry 98 98 97 Oxygen Delivery Oxygen Flow Rate 04/13/24 02:22 04/13/24 02:24 04/13/24 02:26 Pulse Rate 61 61 61 Respiratory Rate 12 12 12 Blood Pressure 116/74 117/70 112/63 Pulse Oximetry 97 97 97 Oxygen Delivery Oxygen Flow Rate 04/13/24 02:28 04/13/24 02:30 04/13/24 02:31 Pulse Rate 62 61 62 Respiratory Rate 11 L 12 12 Blood Pressure 107/67 114/67 Pulse Oximetry 97 97 99 Oxygen Delivery Oxygen Flow Rate 04/13/24 02:32 04/13/24 02:35 04/13/24 02:37 Pulse Rate 61 62 61 Respiratory Rate 12 12 15 Blood Pressure 116/69 113/66 115/59 L Pulse Oximetry 98 100 99 Oxygen Delivery Oxygen Flow Rate 04/13/24 02:38 04/13/24 02:40 04/13/24 02:42 Pulse Rate 63 62 62 Respiratory Rate 11 L 12 12 Blood Pressure 108/56 L 104/56 L 108/60 Pulse Oximetry 98 98 98 Oxygen Delivery Oxygen Flow Rate 04/13/24 02:44 04/13/24 02:45 04/13/24 02:46 Pulse Rate 63 61 61 Respiratory Rate 12 15 13 Blood Pressure 103/61 95/60 L Pulse Oximetry 98 98 98 Oxygen Delivery Oxygen Flow Rate 04/13/24 02:48 04/13/24 02:50 04/13/24 02:52 Pulse Rate 62 62 62 Respiratory Rate 12 12 12 Blood Pressure 105/57 L 107/61 100/55 L Pulse Oximetry 97 97 98 Oxygen Delivery Oxygen Flow Rate 04/13/24 02:54 04/13/24 02:56 04/13/24 02:57 Pulse Rate 64 64 65 Respiratory Rate 12 11 L 12 Blood Pressure 101/57 L 100/58 L Pulse Oximetry 97 98 97 Oxygen Delivery Oxygen Flow Rate 04/13/24 02:58 04/13/24 03:00 04/13/24 03:01 Pulse Rate 62 63 63 Respiratory Rate 12 11 L 13 Blood Pressure 97/54 L 101/56 L Pulse Oximetry 98 97 97 Oxygen Delivery Oxygen Flow Rate 04/13/24 03:02 04/13/24 03:04 04/13/24 03:06 Pulse Rate 64 71 71 Respiratory Rate 12 20 26 H Blood Pressure 97/61 L 102/62 115/77 Pulse Oximetry 97 100 98 Oxygen Delivery Oxygen Flow Rate 04/13/24 03:09 04/13/24 03:11 04/13/24 03:13 Pulse Rate 70 70 78 Respiratory Rate 20 16 18 Blood Pressure 109/63 111/67 113/63 Pulse Oximetry 99 98 98 Oxygen Delivery Oxygen Flow Rate 04/13/24 03:14 04/13/24 03:15 04/13/24 03:17 Pulse Rate 78 73 70 Respiratory Rate 13 13 17 Blood Pressure 136/80 119/66 Pulse Oximetry 94 96 99 Oxygen Delivery Oxygen Flow Rate 04/13/24 03:18 04/13/24 03:20 04/13/24 03:22 Pulse Rate 66 68 63 Respiratory Rate 11 L 9 L 9 L Blood Pressure 126/81 119/80 123/78 Pulse Oximetry 98 97 98 Oxygen Delivery Oxygen Flow Rate 04/13/24 03:24 04/13/24 03:25 04/13/24 03:26 Pulse Rate 63 67 67 Respiratory Rate 12 13 Blood Pressure 134/87 134/87 133/85 Pulse Oximetry 100 Oxygen Delivery Oxygen Flow Rate 04/13/24 03:29 04/13/24 03:30 04/13/24 03:31 Pulse Rate 66 66 70 Respiratory Rate 18 11 L 17 Blood Pressure 119/78 116/80 Pulse Oximetry Oxygen Delivery Oxygen Flow Rate 04/13/24 03:32 04/13/24 03:37 04/13/24 03:39 Pulse Rate 69 76 72 Respiratory Rate 15 18 20 Blood Pressure 114/86 114/70 119/81 Pulse Oximetry Oxygen Delivery Oxygen Flow Rate 04/13/24 04:15 04/13/24 04:15 04/13/24 04:15 Pulse Rate 67 67 67 Respiratory Rate 15 Blood Pressure 113/88 113/88 Pulse Oximetry 97 Oxygen Delivery Oxygen Flow Rate 04/13/24 04:20 04/13/24 04:25 04/13/24 05:35 Pulse Rate 72 58 L Respiratory Rate 20 Blood Pressure 119/81 81/62 L Pulse Oximetry 100 99 Oxygen Delivery Nasal Cannula Oxygen Flow Rate 2 04/13/24 06:00 04/13/24 06:00 04/13/24 06:00 Pulse Rate 59 L 59 L 63 Respiratory Rate 11 L Blood Pressure 89/63 L 89/63 L Pulse Oximetry 95 Oxygen Delivery Oxygen Flow Rate 04/13/24 06:45 04/13/24 08:24 Pulse Rate 61 59 L Respiratory Rate Blood Pressure 85/67 L Pulse Oximetry Oxygen Delivery Oxygen Flow Rate Exam Narrative: General: Pleasant female in no acute distress HEENT:? Pupils equal and reactive, sclera is clear, moist oral mucosa Neck:? Supple Respiratory:? Clear to auscultation bilaterally, no wheezing, adequate air entry, no chest wall tenderness Cardiac:? S1-S2 normal, regular rate and rhythm Abdomen:? Soft, nontender, nondistended, normoactive bowel sounds Extremities:? No edema, palpable pedal Neuro:? Awake, alert, oriented x3, nonfocal, answers to questions appropriately and follows simple commands in all extremities Skin:? No skin lesions, warm and dry Psych:? Normal mentation and affect Results Labs 04/13/24 07:38 04/13/24 07:38 Labs: Short CBC 04/12/24 04/13/24 Range/Units 22:17 07:38 WBC 4.8 5.2 (4.5-10.0) K/mm3 Hgb 14.2 14.2 (12.0-15.0) g/dL Hct 42.0 43.5 (37.0-47.0) % Plt Count 235 226 (150-375) k/mm3 BMP 04/12/24 04/13/24 22:17 07:38 Sodium 142 141 Potassium 4.3 4.2 Chloride 105 106 Carbon Dioxide 26 28 BUN 20 H 20 H Creatinine 0.60 L 0.63 L Glucose 106 100 Calcium 9.2 8.8 Cardiac Enzymes 04/12/24 04/13/24 04/13/24 Range/Units 22:17 00:48 03:52 Troponin I < 0.012 < 0.012 < 0.012 (0.000-0.034) ng/mL Liver Function 04/12/24 04/13/24 Range/Units 22:17 07:38 Total Bilirubin 0.3 0.5 (0.2-1.3) mg/dL AST 27 35 (14-36) U/L ALT 30 27 (6-35) U/L Alkaline Phosphatase 77 71 (38-126) U/L Albumin 4.2 3.9 (3.5-5.1) g/dL Urine 04/12/24 Range/Units 23:29 Urine Color Yellow (Yellow) Urine Appearance Cloudy H (Clear) Urine pH 7.0 (5.0-9.0) Ur Specific [place] 1.020 (1.001-1.035) Urine Protein Negative (Negative) mg/dL Urine Glucose (UA) Negative (Negative) mg/dL Quality VTE Prophylaxis VTE prophylaxis: pharmacologic ordered Hospitalist MIPS Advance Care Plan I have confirmed that the patient's Advanced Care Plan is present, code status is documented, or surrogate decision maker is listed in patient medical record.: Yes Medication Reconciliation I have utilized all available resources to obtain, update and review the patients current medications (includes all prescriptions, OTC, herbals, cannabis, and nutritional supplements).: Yes
[2024-04-13 09:14] LABS: Troponin I < 0.012 ng/mL (0.000-0.034)
[2024-04-13 09:38] LABS: Influenza A QL RT-PCR Negative (Negative); Influenza B QL RT-PCR Negative (Negative); RSV RNA, RT-PCR Negative (Negative); SARS-CoV-2 RNA PCR Negative (Negative)
--- NOTE | 2024-04-13 10:09 | PM.CNCAR ---
Assessment and Plan Assessment and plan (1) Unstable angina: Code(s): I20.0 - Unstable angina Status: Acute Plan This is a 64-year-old lady who found a couple of years ago to have advanced coronary disease according to the chart with calcified vessels total occlusion of her LAD and RCA with this development of collaterals. By the reports in the chart her LV function has been normal. Surgical revascularization was performed in July of 2022 as mentioned above. She has done well since then she now presents with what sounds like acute coronary syndrome/unstable angina fortunately her troponin levels are negative. She does have some dynamic lateral ST segment depression noted in the emergency room. She should undergo follow-up angiography in this setting. If she remains stable that can be done tomorrow morning obviously if she destabilizes that can be done as an emergency. Ethan Molina MD [facility] History of Present Illness History of Present Illness Consult date/time: 04/13/24 10:09 Reason For Visit: Unstable angina Narrative: This is a 64-year-old woman known to have coronary artery disease I am seeing at the request of the hospitalist because of what appears to be unstable angina. She has not been seen by myself in the past. She was found to have coronary disease in 2022 when she was out of town and developed the acute coronary syndrome and underwent the catheterization somewhere in [place]. Surprisingly she was found to have significant coronary disease with calcified vessels, total occlusion of the LAD and right coronary arteries. There was significant collateral circulation according to the chart and she was subsequently seen in this area by lumite injector at [place] and cardiothoracic surgeon performed is coronary bypass grafting in July of 2022. According to the records she received a PATE graft to the LAD and a vein graft to the OM circumflex. Presumably her right coronary artery with either small, not graftable etc.. The patient the patient's chart and she indicates that her left ventricular systolic function has been normal. She following surgery has established follow-up in our practice and sees Dr. Shetty. Her last appointment last year she will was doing well. She rescheduled her most recent appointment in January of 2024. She called the office nurse he on Sunday reporting a several day history of intermittent chest pain. An Lexiscan nuclear stress test was ordered which was scheduled for tomorrow morning. Subsequent to that her symptoms became worsened and so she came to the emergency room here last night. In the emergency room she had 5 electrocardiograms done. Looks like the 3rd [address] segment depression the other 4 EKGs look benign. She has had 5 troponin levels done that are negative. On talking to the patient in the room and discussing the situation she did have some retrosternal chest pain that seemed to resolve as we completed the conversation. She has intravenous heparin as well as intravenous nitroglycerin running. Review of Systems Constitutional: Constitutional: Reports no additional constitutional complaints Eyes: Eyes: Reports no additional eye complaints ENT: Reports system reviewed and no additional complaints, except as documented Cardiovascular: Cardiovascular: Reports as per HPI and Reports chest pain Respiratory: Respiratory: Reports no additional respiratory complaints Gastrointestinal: Gastrointestinal: Reports no additional gastrointestinal complaints Musculoskeletal: Musculoskeletal: Reports no additional musculoskeletal complaints Integumentary/Breasts: Skin/Breast: Reports system reviewed and no additional complaints, except as docu Neurologic: Reports system reviewed and no additional complaints, except as documented Endocrine: Endocrine: Reports no additional endocrine complaints Hematologic/Lymphatic: Hematologic/Lymphatic: Reports no additional hematologic/lymphatic complaints Allergic/Immunologic: Allergic/Immunologic: Reports no additional allergic/immunologic complaints [facility] Past Medical History Medical History (Updated 04/13/24 @ 04:26 by Zuly Griffin DO) GERD (gastroesophageal reflux disease) Seasonal allergies Fracture of right tibia and fibula (~1991) Skiing accident Closed right ankle fracture (~2022) Compression fracture of T10 vertebra (~1999) Falling on ice Essential hypertension Anxiety Hypothyroidism Dyslipidemia Coronary artery disease Surgical History Surgical History (Updated 04/13/24 @ 04:26 by Zuly Griffin DO) History of sinus surgery History of two vessel coronary artery bypass graft (08/18/22) Family History Family History Father High cholesterol Hypertension Cerebrovascular accident Diabetes mellitus Cancer Mother High cholesterol Hypertension Heart disease Heart attack Cancer Sibling High cholesterol Hypertension Heart disease Diabetes mellitus Social History Social History (Updated 04/13/24 @ 04:27 by Zuly Griffin DO) Social History: She lives at home with her and 3 dogs. She does not have any children. She works in finance. She used to smoke a pack of cigarettes per day and still occasionally smokes if she goes out to have drinks. She drinks 1-2 glasses of wine 5 days a week. She denies illicit substance use. Code status: Full code Surrogate decision maker: Smoking packs per day: 1 Smoking cigarettes per day: 20.0 Years smoked: 10 Smoking pack-years: 10.00 Smoking status: Current some day smoker Tobacco type: cigarettes Additional smoking assessment comments: inconsistent for approx 10 years Alcohol intake: current Drinks per week: 7 Substance use: never Do You Feel Safe in your Home?: Yes Lack of Transportation: No Lack of Food: Never True Current Housing: I Have Housing Concerned About Future Housing: No Difficulty Paying Gas/Electric Bills: No Difficulty Paying for Meds: No Currently Unemployed: No Education: Bachelor's Degree Difficulty w/ Childcare or Family Care: No Gender identity (if verbalized by the patient): Female Spiritual care concerns: No Meds Home Medications and Allergies Home Medications ?Medication ?Instructions ?Recorded ?Confirmed ?Type alprazolam 0.5 mg tablet 0.25 mg PO QHS PRN anxiety 04/13/24 04/13/24 History atenolol 25 mg tablet 12.5 mg PO Q12H 04/13/24 04/13/24 History atorvastatin 80 mg tablet 80 mg PO QPM 04/13/24 04/13/24 History clopidogrel 75 mg tablet 75 mg PO QHS 04/13/24 04/13/24 History fluoxetine 10 mg capsule 10 mg PO QAM 04/13/24 04/13/24 History levothyroxine 100 mcg tablet 50 mcg PO QAM 04/13/24 04/13/24 History Allergies Allergy/AdvReac Type Severity Reaction Status Date / Time meperidine Allergy Intermediate Jittery Verified 04/13/24 04:28 potato Allergy Other Verified 04/13/24 04:28 soy Allergy Wheezing Verified 04/13/24 04:28 Vital Signs Vital Signs - 24 hr 04/12/24 21:50 04/12/24 21:51 04/12/24 21:51 Pulse Rate 68 69 Respiratory Rate 20 Blood Pressure 132/89 Pulse Oximetry 98 98 Oxygen Delivery Room Air Oxygen Flow Rate 04/12/24 23:56 04/13/24 00:52 04/13/24 01:20 Pulse Rate 60 69 62 Respiratory Rate 15 17 Blood Pressure 160/96 H 114/68 Pulse Oximetry 94 98 Oxygen Delivery Oxygen Flow Rate 04/13/24 01:27 04/13/24 01:30 04/13/24 01:31 Pulse Rate 62 65 64 Respiratory Rate 12 9 L 8 L Blood Pressure 127/83 Pulse Oximetry 98 95 98 Oxygen Delivery Oxygen Flow Rate 04/13/24 01:35 04/13/24 01:40 04/13/24 01:43 Pulse Rate 64 68 63 Respiratory Rate 10 L 14 Blood Pressure 134/81 145/93 H 143/87 H Pulse Oximetry 96 97 99 Oxygen Delivery Oxygen Flow Rate 04/13/24 01:44 04/13/24 01:44 04/13/24 01:45 Pulse Rate 69 62 67 Respiratory Rate 11 L 22 H Blood Pressure 137/94 H 137/94 H Pulse Oximetry 98 99 Oxygen Delivery Oxygen Flow Rate 04/13/24 01:47 04/13/24 01:48 04/13/24 01:50 Pulse Rate 63 65 62 Respiratory Rate 13 23 H 13 Blood Pressure 115/84 120/87 122/71 Pulse Oximetry 99 99 99 Oxygen Delivery Oxygen Flow Rate 04/13/24 01:52 04/13/24 01:54 04/13/24 01:56 Pulse Rate 60 66 70 Respiratory Rate 9 L 17 16 Blood Pressure 113/67 116/90 122/90 Pulse Oximetry 99 99 99 Oxygen Delivery Oxygen Flow Rate 04/13/24 01:57 04/13/24 01:58 04/13/24 02:00 Pulse Rate 64 60 61 Respiratory Rate 24 H 13 11 L Blood Pressure 120/80 128/84 Pulse Oximetry 99 99 100 Oxygen Delivery Oxygen Flow Rate 04/13/24 02:01 04/13/24 02:02 04/13/24 02:04 Pulse Rate 61 62 63 Respiratory Rate 11 L 12 14 Blood Pressure 119/79 109/73 Pulse Oximetry 100 99 98 Oxygen Delivery Oxygen Flow Rate 04/13/24 02:06 04/13/24 02:08 04/13/24 02:10 Pulse Rate 61 62 60 Respiratory Rate 8 L 10 L 11 L Blood Pressure 115/72 115/68 116/69 Pulse Oximetry 97 97 97 Oxygen Delivery Oxygen Flow Rate 04/13/24 02:12 04/13/24 02:14 04/13/24 02:15 Pulse Rate 61 62 61 Respiratory Rate 11 L 11 L 12 Blood Pressure 111/71 110/72 Pulse Oximetry 97 98 98 Oxygen Delivery Oxygen Flow Rate 04/13/24 02:16 04/13/24 02:18 04/13/24 02:20 Pulse Rate 62 61 63 Respiratory Rate 11 L 12 12 Blood Pressure 116/74 107/71 112/69 Pulse Oximetry 98 98 97 Oxygen Delivery Oxygen Flow Rate 04/13/24 02:22 04/13/24 02:24 04/13/24 02:26 Pulse Rate 61 61 61 Respiratory Rate 12 12 12 Blood Pressure 116/74 117/70 112/63 Pulse Oximetry 97 97 97 Oxygen Delivery Oxygen Flow Rate 04/13/24 02:28 04/13/24 02:30 04/13/24 02:31 Pulse Rate 62 61 62 Respiratory Rate 11 L 12 12 Blood Pressure 107/67 114/67 Pulse Oximetry 97 97 99 Oxygen Delivery Oxygen Flow Rate 04/13/24 02:32 04/13/24 02:35 04/13/24 02:37 Pulse Rate 61 62 61 Respiratory Rate 12 12 15 Blood Pressure 116/69 113/66 115/59 L Pulse Oximetry 98 100 99 Oxygen Delivery Oxygen Flow Rate 04/13/24 02:38 04/13/24 02:40 04/13/24 02:42 Pulse Rate 63 62 62 Respiratory Rate 11 L 12 12 Blood Pressure 108/56 L 104/56 L 108/60 Pulse Oximetry 98 98 98 Oxygen Delivery Oxygen Flow Rate 04/13/24 02:44 04/13/24 02:45 04/13/24 02:46 Pulse Rate 63 61 61 Respiratory Rate 12 15 13 Blood Pressure 103/61 95/60 L Pulse Oximetry 98 98 98 Oxygen Delivery Oxygen Flow Rate 04/13/24 02:48 04/13/24 02:50 04/13/24 02:52 Pulse Rate 62 62 62 Respiratory Rate 12 12 12 Blood Pressure 105/57 L 107/61 100/55 L Pulse Oximetry 97 97 98 Oxygen Delivery Oxygen Flow Rate 04/13/24 02:54 04/13/24 02:56 04/13/24 02:57 Pulse Rate 64 64 65 Respiratory Rate 12 11 L 12 Blood Pressure 101/57 L 100/58 L Pulse Oximetry 97 98 97 Oxygen Delivery Oxygen Flow Rate 04/13/24 02:58 04/13/24 03:00 04/13/24 03:01 Pulse Rate 62 63 63 Respiratory Rate 12 11 L 13 Blood Pressure 97/54 L 101/56 L Pulse Oximetry 98 97 97 Oxygen Delivery Oxygen Flow Rate 04/13/24 03:02 02/16/25 03:04 04/13/24 03:06 Pulse Rate 64 71 71 Respiratory Rate 12 20 26 H Blood Pressure 97/61 L 102/62 115/77 Pulse Oximetry 97 100 98 Oxygen Delivery Oxygen Flow Rate 04/13/24 03:09 04/13/24 03:11 04/13/24 03:13 Pulse Rate 70 70 78 Respiratory Rate 20 16 18 Blood Pressure 109/63 111/67 113/63 Pulse Oximetry 99 98 98 Oxygen Delivery Oxygen Flow Rate 04/13/24 03:14 04/13/24 03:15 04/13/24 03:17 Pulse Rate 78 73 70 Respiratory Rate 13 13 17 Blood Pressure 136/80 119/66 Pulse Oximetry 94 96 99 Oxygen Delivery Oxygen Flow Rate 04/13/24 03:18 04/13/24 03:20 04/13/24 03:22 Pulse Rate 66 68 63 Respiratory Rate 11 L 9 L 9 L Blood Pressure 126/81 119/80 123/78 Pulse Oximetry 98 97 98 Oxygen Delivery Oxygen Flow Rate 04/13/24 03:24 04/13/24 03:25 04/13/24 03:26 Pulse Rate 63 67 67 Respiratory Rate 12 13 Blood Pressure 134/87 134/87 133/85 Pulse Oximetry 100 Oxygen Delivery Oxygen Flow Rate 04/13/24 03:29 04/13/24 03:30 04/13/24 03:31 Pulse Rate 66 66 70 Respiratory Rate 18 11 L 17 Blood Pressure 119/78 116/80 Pulse Oximetry Oxygen Delivery Oxygen Flow Rate 04/13/24 03:32 04/13/24 03:37 04/13/24 03:39 Pulse Rate 69 76 72 Respiratory Rate 15 18 20 Blood Pressure 114/86 114/70 119/81 Pulse Oximetry Oxygen Delivery Oxygen Flow Rate 04/13/24 04:15 04/13/24 04:15 04/13/24 04:15 Pulse Rate 67 67 67 Respiratory Rate 15 Blood Pressure 113/88 113/88 Pulse Oximetry 97 Oxygen Delivery Oxygen Flow Rate 04/13/24 04:20 04/13/24 04:25 04/13/24 05:35 Pulse Rate 72 58 L Respiratory Rate 20 Blood Pressure 119/81 81/62 L Pulse Oximetry 100 99 Oxygen Delivery Nasal Cannula Oxygen Flow Rate 2 04/13/24 06:00 04/13/24 06:00 04/13/24 06:00 Pulse Rate 59 L 59 L 63 Respiratory Rate 11 L Blood Pressure 89/63 L 89/63 L Pulse Oximetry 95 Oxygen Delivery Oxygen Flow Rate 04/13/24 06:45 04/13/24 08:24 Pulse Rate 61 59 L Respiratory Rate Blood Pressure 85/67 L Pulse Oximetry Oxygen Delivery Oxygen Flow Rate Exam Const: General: comfortable and no acute distress Other: Pleasant lady appearing her stated age not in any distress at this time HENMT: Mouth: Yes moist mucous membranes Eyes: Sclera: sclerae normal Neck: Neck: supple and no JVD Resp: Effort & Inspection: normal respiratory effort Auscultation: clear to auscultation bilaterally Cardio: Rate: regular rate Rhythm: regular rhythm Other: No murmur no gallop no rub GI: GI Palp: Yes Soft to palpation Auscultation: normal bowel sounds Skin: General skin exam: normal color Neuro: Other: Alert and oriented x3 Extrem: Other: No edema, normal perfusion Results Labs and Meds 04/13/24 07:38 04/13/24 07:38 Lab results: Cardiac Enzymes 04/12/24 04/13/24 04/13/24 Range/Units 22:17 00:48 03:52 AST 27 (14-36) U/L Troponin I < 0.012 < 0.012 < 0.012 (0.000-0.034) ng/mL 04/13/24 Range/Units 07:38 AST 35 (14-36) U/L Troponin I < 0.012 (0.000-0.034) ng/mL Coagulation 04/12/24 04/13/24 Range/Units 22:17 07:38 PT 12.8 (11.1-14.7) Seconds APTT 27.4 77.8 H (22.3-36.8) Seconds Lipids 04/13/24 Range/Units 03:52 Triglycerides 133 (<150) mg/dL Cholesterol 166 (0-200) mg/dL CBC 04/12/24 04/13/24 Range/Units 22:17 07:38 WBC 4.8 5.2 (4.5-10.0) K/mm3 RBC 4.57 4.62 (4.2-5.4) M/mm3 Hgb 14.2 14.2 (12.0-15.0) g/dL Hct 42.0 43.5 (37.0-47.0) % Plt Count 235 226 (150-375) k/mm3 Lymph # (Auto) 1.80 (0.9-3.2) K/mm3 [place] # (Auto) 0.4 (0.1-0.6) K/mm3 Eos # (Auto) 0.1 (0-0.3) K/mm3 Baso # (Auto) 0.0 (0.0-0.1) K/mm3 Comprehensive Metabolic Panel 04/12/24 04/13/24 Range/Units 22:17 07:38 Sodium 142 141 (137-145) mmol/L Potassium 4.3 4.2 (3.4-5.0) mmol/L Chloride 105 106 (98-107) mmol/L Carbon Dioxide 26 28 (22-30) mmol/L BUN 20 H 20 H (7-17) mg/dL Creatinine 0.60 L 0.63 L (0.7-1.0) mg/dL Glucose 106 100 (65-110) mg/dL Calcium 9.2 8.8 (8.4-10.2) mg/dL AST 27 35 (14-36) U/L ALT 30 27 (6-35) U/L Alkaline Phosphatase 77 71 (38-126) U/L Total Protein 7.0 6.0 L (6.3-8.2) g/dL Albumin 4.2 3.9 (3.5-5.1) g/dL Intake and Output 04/12/24 04/13/24 04/13/24 23:59 07:59 15:59 Intake Total 78.9 Balance 78.9 Intake: IV 18.9 Nitroglycerin/D5w 200 Mcg/ml 50 18.9 mg In 250 ml @ 15 MCG/MIN 4.5 mls/hr IV CONT .Q24H STA Rx#: [id number] Oral 60 Patient Weight 04/13/24 23:59 Weight 70.8 kg
[2024-04-13] MEDS: FLUoxetine HCL 10 MG CAPSULE PO (10:20)
[2024-04-13] MEDS: ASPIRIN 81 MG CHEWABLE TABLET PO (10:45)
[2024-04-13] MEDS: BELLADONNA ALK/PHENOB ELIX 10 ML, MAG HYDROX/ALUMINUM HYD/SIMETH 30 ML, LIDOCAINE 2% VI... PO (10:45)
--- NOTE | 2024-04-13 11:50 | P.PNIM_ITS ---
Progress Note: A&P Assessment and Plan (1) Unstable angina: Code(s): I20.0 - Unstable angina Status: Acute Assessment and Plan: Chest Pain -Possible cath tomorrow -heparin and nitroglycerin infusion. -Rosuvastatin 80 mg, and clopidogrel 75mg -Cardiology switched his Lopressor 100 mg daily to b.i.d. and recommend weaning him off diltiazem drip -continue heparin drip and give sublingual nitro if needed -No Echocardiogram in file -Denies any illicit drug use -Reviewed EKG and CXR Subjective Date/time seen: 04/13/24 11:50 Interval history: Patient reports initially in the year 2022 when she was living in [place] she was hospitalized for fall and was diagnosed with heart disease but she returned to [facility] in a month and underwent double bypass surgery at [facility] (LAD and RCV). Patient probably will undergo cardiac cath tomorrow. Review of Systems Review of Systems: 12 systems were reviewed with pertinent positives and negatives per HPI. Except as documented in the HPI, all other systems were reviewed and are negative. All systems reviewed & are unremarkable except as noted in HPI and below Exam Narrative: General: Pleasant female in no acute distress HEENT:? Pupils equal and reactive, sclera is clear, moist oral mucosa Neck:? Supple Respiratory:? Clear to auscultation bilaterally, no wheezing, adequate air entry, no chest wall tenderness Cardiac:? S1-S2 normal, regular rate and rhythm Abdomen:? Soft, nontender, nondistended, normoactive bowel sounds Extremities:? No edema, palpable pedal Neuro:? Awake, alert, oriented x3, nonfocal, answers to questions appropriately and follows simple commands in all extremities Skin:? No skin lesions, warm and dry Psych:? Normal mentation and affect Const: Other: Well-developed, well-nourished, no acute distress HENMT: Other: Mucous membranes are tacky, no oral pharyngeal erythema, head is normocephalic atraumatic Eyes: Other: Pupils are equal and reactive, no scleral icterus, no conjunctival pallor Neck: Other: No lymphadenopathy, no thyromegaly Resp: Other: Clear to auscultation bilaterally, no increased work of breathing Cardio: Other: Regular rate, regular rhythm, 2+ bilateral radial pedal pulses GI: Other: Soft, nontender, nondistended, positive bowel sounds Skin: Other: Non jaundice, no pallor Neuro: Other: Alert oriented, speech is clear, no facial asymmetry, moves all extremities equally, no localizing neurologic deficits noted during the course of conversation Extrem: Other: No clubbing, cyanosis or edema Psych: Other: Appropriate mood and affect, pleasant and cooperative, judgment and insight intact Objective Data Vital Signs Vital Signs: Vital Signs - 24 hr 04/12/24 21:50 04/12/24 21:51 04/12/24 21:51 Pulse Rate 68 69 Respiratory Rate 20 Blood Pressure 132/89 Pulse Oximetry 98 98 Oxygen Delivery Room Air Oxygen Flow Rate 04/12/24 23:56 04/13/24 00:52 04/13/24 01:20 Pulse Rate 60 69 62 Respiratory Rate 15 17 Blood Pressure 160/96 H 114/68 Pulse Oximetry 94 98 Oxygen Delivery Oxygen Flow Rate 04/13/24 01:27 04/13/24 01:30 04/13/24 01:31 Pulse Rate 62 65 64 Respiratory Rate 12 9 L 8 L Blood Pressure 127/83 Pulse Oximetry 98 95 98 Oxygen Delivery Oxygen Flow Rate 04/13/24 01:35 04/13/24 01:40 04/13/24 01:43 Pulse Rate 64 68 63 Respiratory Rate 10 L 14 Blood Pressure 134/81 145/93 H 143/87 H Pulse Oximetry 96 97 99 Oxygen Delivery Oxygen Flow Rate 04/13/24 01:44 04/13/24 01:44 04/13/24 01:45 Pulse Rate 69 62 67 Respiratory Rate 11 L 22 H Blood Pressure 137/94 H 137/94 H Pulse Oximetry 98 99 Oxygen Delivery Oxygen Flow Rate 04/13/24 01:47 04/13/24 01:48 04/13/24 01:50 Pulse Rate 63 65 62 Respiratory Rate 13 23 H 13 Blood Pressure 115/84 120/87 122/71 Pulse Oximetry 99 99 99 Oxygen Delivery Oxygen Flow Rate 04/13/24 01:52 04/13/24 01:54 04/13/24 01:56 Pulse Rate 60 66 70 Respiratory Rate 9 L 17 16 Blood Pressure 113/67 116/90 122/90 Pulse Oximetry 99 99 99 Oxygen Delivery Oxygen Flow Rate 04/13/24 01:57 04/13/24 01:58 04/13/24 02:00 Pulse Rate 64 60 61 Respiratory Rate 24 H 13 11 L Blood Pressure 120/80 128/84 Pulse Oximetry 99 99 100 Oxygen Delivery Oxygen Flow Rate 04/13/24 02:01 04/13/24 02:02 04/13/24 02:04 Pulse Rate 61 62 63 Respiratory Rate 11 L 12 14 Blood Pressure 119/79 109/73 Pulse Oximetry 100 99 98 Oxygen Delivery Oxygen Flow Rate 04/13/24 02:06 04/13/24 02:08 04/13/24 02:10 Pulse Rate 61 62 60 Respiratory Rate 8 L 10 L 11 L Blood Pressure 115/72 115/68 116/69 Pulse Oximetry 97 97 97 Oxygen Delivery Oxygen Flow Rate 04/13/24 02:12 04/13/24 02:14 04/13/24 02:15 Pulse Rate 61 62 61 Respiratory Rate 11 L 11 L 12 Blood Pressure 111/71 110/72 Pulse Oximetry 97 98 98 Oxygen Delivery Oxygen Flow Rate 04/13/24 02:16 04/13/24 02:18 04/13/24 02:20 Pulse Rate 62 61 63 Respiratory Rate 11 L 12 12 Blood Pressure 116/74 107/71 112/69 Pulse Oximetry 98 98 97 Oxygen Delivery Oxygen Flow Rate 04/13/24 02:22 04/13/24 02:24 04/13/24 02:26 Pulse Rate 61 61 61 Respiratory Rate 12 12 12 Blood Pressure 116/74 117/70 112/63 Pulse Oximetry 97 97 97 Oxygen Delivery Oxygen Flow Rate 04/13/24 02:28 04/13/24 02:30 04/13/24 02:31 Pulse Rate 62 61 62 Respiratory Rate 11 L 12 12 Blood Pressure 107/67 114/67 Pulse Oximetry 97 97 99 Oxygen Delivery Oxygen Flow Rate 04/13/24 02:32 04/13/24 02:35 04/13/24 02:37 Pulse Rate 61 62 61 Respiratory Rate 12 12 15 Blood Pressure 116/69 113/66 115/59 L Pulse Oximetry 98 100 99 Oxygen Delivery Oxygen Flow Rate 04/13/24 02:38 04/13/24 02:40 04/13/24 02:42 Pulse Rate 63 62 62 Respiratory Rate 11 L 12 12 Blood Pressure 108/56 L 104/56 L 108/60 Pulse Oximetry 98 98 98 Oxygen Delivery Oxygen Flow Rate 04/13/24 02:44 04/13/24 02:45 04/13/24 02:46 Pulse Rate 63 61 61 Respiratory Rate 12 15 13 Blood Pressure 103/61 95/60 L Pulse Oximetry 98 98 98 Oxygen Delivery Oxygen Flow Rate 04/13/24 02:48 04/13/24 02:50 04/13/24 02:52 Pulse Rate 62 62 62 Respiratory Rate 12 12 12 Blood Pressure 105/57 L 107/61 100/55 L Pulse Oximetry 97 97 98 Oxygen Delivery Oxygen Flow Rate 04/13/24 02:54 04/13/24 02:56 04/13/24 02:57 Pulse Rate 64 64 65 Respiratory Rate 12 11 L 12 Blood Pressure 101/57 L 100/58 L Pulse Oximetry 97 98 97 Oxygen Delivery Oxygen Flow Rate 04/13/24 02:58 04/13/24 03:00 04/13/24 03:01 Pulse Rate 62 63 63 Respiratory Rate 12 11 L 13 Blood Pressure 97/54 L 101/56 L Pulse Oximetry 98 97 97 Oxygen Delivery Oxygen Flow Rate 04/13/24 03:02 04/13/24 03:04 04/13/24 03:06 Pulse Rate 64 71 71 Respiratory Rate 12 20 26 H Blood Pressure 97/61 L 102/62 115/77 Pulse Oximetry 97 100 98 Oxygen Delivery Oxygen Flow Rate 04/13/24 03:09 04/13/24 03:11 04/13/24 03:13 Pulse Rate 70 70 78 Respiratory Rate 20 16 18 Blood Pressure 109/63 111/67 113/63 Pulse Oximetry 99 98 98 Oxygen Delivery Oxygen Flow Rate 04/13/24 03:14 04/13/24 03:15 04/13/24 03:17 Pulse Rate 78 73 70 Respiratory Rate 13 13 17 Blood Pressure 136/80 119/66 Pulse Oximetry 94 96 99 Oxygen Delivery Oxygen Flow Rate 04/13/24 03:18 04/13/24 03:20 04/13/24 03:22 Pulse Rate 66 68 63 Respiratory Rate 11 L 9 L 9 L Blood Pressure 126/81 119/80 123/78 Pulse Oximetry 98 97 98 Oxygen Delivery Oxygen Flow Rate 04/13/24 03:24 04/13/24 03:25 04/13/24 03:26 Pulse Rate 63 67 67 Respiratory Rate 12 13 Blood Pressure 134/87 134/87 133/85 Pulse Oximetry 100 Oxygen Delivery Oxygen Flow Rate 04/13/24 03:29 04/13/24 03:30 04/13/24 03:31 Pulse Rate 66 66 70 Respiratory Rate 18 11 L 17 Blood Pressure 119/78 116/80 Pulse Oximetry Oxygen Delivery Oxygen Flow Rate 04/13/24 03:32 04/13/24 03:37 04/13/24 03:39 Pulse Rate 69 76 72 Respiratory Rate 15 18 20 Blood Pressure 114/86 114/70 119/81 Pulse Oximetry Oxygen Delivery Oxygen Flow Rate 04/13/24 04:15 04/13/24 04:15 04/13/24 04:15 Pulse Rate 67 67 67 Respiratory Rate 15 Blood Pressure 113/88 113/88 Pulse Oximetry 97 Oxygen Delivery Oxygen Flow Rate 04/13/24 04:20 04/13/24 04:25 04/13/24 05:35 Pulse Rate 72 58 L Respiratory Rate 20 Blood Pressure 119/81 81/62 L Pulse Oximetry 100 99 Oxygen Delivery Nasal Cannula Oxygen Flow Rate 2 04/13/24 06:00 04/13/24 06:00 04/13/24 06:00 Pulse Rate 59 L 59 L 63 Respiratory Rate 11 L Blood Pressure 89/63 L 89/63 L Pulse Oximetry 95 Oxygen Delivery Oxygen Flow Rate 04/13/24 06:45 04/13/24 08:00 04/13/24 08:00 Pulse Rate 61 59 L 59 L Respiratory Rate 11 L Blood Pressure 85/67 L Pulse Oximetry 95 Oxygen Delivery Nasal Cannula Oxygen Flow Rate 2 04/13/24 08:24 04/13/24 10:00 Pulse Rate 59 L 59 L Respiratory Rate Blood Pressure Pulse Oximetry Oxygen Delivery Oxygen Flow Rate Intake/Output Intake/Output: Intake & Output 04/10/24 04/11/24 04/12/24 04/13/24 23:59 23:59 23:59 23:59 Intake Total 78.9 Balance 78.9 Meds/Results Medications: Active Medications Generic Name Dose Route Start Last Admin Trade Name Freq PRN Reason Stop Dose Admin Alprazolam 0.25 mg 04/13/24 04:29 Alprazolam (*Crx) 0.25 Mg Tablet PO QHS PRN anxiety Aspirin 81 mg 04/13/24 09:45 Aspirin 81 Mg Chewable Tablet PO DAILY@0800 [facility] Atenolol 12.5 mg 04/13/24 09:00 04/13/24 08:24 Atenolol 12.5 Mg Tablet PO Not Given Q12HR [facility] Atorvastatin Calcium 80 mg 04/13/24 18:00 Atorvastatin 40 Mg Tablet PO QPM [facility] Clopidogrel Bisulfate 75 mg 04/13/24 21:00 Clopidogrel Bisulfate 75 Mg Tablet PO QHS [facility] Fluoxetine HCl 10 mg 04/13/24 09:00 04/13/24 10:20 Fluoxetine Hcl 10 Mg Capsule PO 10 mg QAM JESUS Administration Heparin Sodium (Porcine) 4,000 units 04/13/24 01:02 Heparin Sodium 5,000 Units/Ml Vial IV PUSH PRN PRN aPTT less than 55 seconds Heparin Sodium (Porcine) 2,500 units 04/13/24 01:02 Heparin Sodium 5,000 Units/Ml Vial IV PUSH PRN PRN aPTT 55 - 70 seconds Hydromorphone HCl 0.5 mg 04/13/24 03:22 04/13/24 03:30 Hydromorphone Hcl Inj (*Crx) 1 Mg/Ml Syr IV PUSH 0.5 mg Q2H PRN Administration Chest Pain Heparin Sodium/Dextrose 25,000 units in 250 mls @ 8 mls/hr 04/13/24 01:05 04/13/24 01:27 Heparin Sodium/D5w 100 Units/Ml IV CONT 800 units/hr .Q24H JESUS 8 mls/hr Administration Protocol 800 UNITS/HR Nitroglycerin/Dextrose 50 mg in 250 mls @ 1.5 mls/hr 04/13/24 01:02 04/13/24 06:45 Nitroglycerin In 5% Dextrose 50 Mg IV CONT 04/14/24 01:01 5 mcg/min .Q24H STA 1.5 mls/hr Titration Protocol 5 MCG/MIN Levothyroxine Sodium 50 mcg 04/13/24 06:30 04/13/24 07:49 Levothyroxine Sodium 50 Mcg Tablet PO 50 mcg DAILY@0630 [facility] Administration Ondansetron HCl 4 mg 04/13/24 02:56 Ondansetron Inj 4 Mg/2 Ml Vial IV PUSH Q4H PRN Nausea Radiology Results: ITS Impressions Chest X-Ray 04/12/24 23:45 IMPRESSION: No focal infiltrate or effusion. Labs Labs: Laboratory Results - last 24 hr 04/12/24 04/12/24 04/13/24 22:17 23:29 00:48 WBC 4.8 RBC 4.57 Hgb 14.2 Hct 42.0 MCV 91.9 MCH 31.1 MCHC 33.8 RDW 13.3 Plt Count 235 MPV 9.5 Immature Gran % (Auto) 0.2 Neut % (Auto) 50.8 Lymph % (Auto) 37.7 [place] % (Auto) 8.4 Eos % (Auto) 2.3 Baso % (Auto) 0.6 Lymph # (Auto) 1.80 [place] # (Auto) 0.4 Eos # (Auto) 0.1 Baso # (Auto) 0.0 Abs Immat Gran (auto) 0.01 Absolute Neuts (auto) 2.4 Absolute Nucleated RBC 0.000 Nucleated RBC % 0.0 PT 12.8 INR 0.9 APTT 27.4 D-Dimer < 0.27 Sodium 142 Potassium 4.3 Chloride 105 Carbon Dioxide 26 Anion Gap 11 BUN 20 H Creatinine 0.60 L Estim Creat Clear Calc 77 Estimated GFR > 60 Glucose 106 Calcium 9.2 Total Bilirubin 0.3 AST 27 ALT 30 Alkaline Phosphatase 77 Troponin I < 0.012 < 0.012 NT-Pro-B Natriuret Pep 41 Total Protein 7.0 Albumin 4.2 Triglycerides Cholesterol LDL Cholesterol Direct HDL Direct Lipase 126 Urine Color Yellow Urine Appearance Cloudy H Urine pH 7.0 Ur Specific [place] 1.020 Urine Protein Negative Urine Glucose (UA) Negative Urine Ketones Trace H Ur Blood (Man) Negative Urine Nitrate Negative Urine Bilirubin Negative Urine Urobilinogen 0.2 Leukocyte Esterase Rfl Negative Urine RBC 0-2 Urine WBC 0-5 Ur Squamous Epith Cells None seen Urine Bacteria None seen Urine Casts 0-2 Nasal MRSA (PCR) Influenza A (RT-PCR) Influenza B (RT-PCR) RSV (RT-PCR) SARS-CoV-2 RNA (RT-PCR) 04/13/24 04/13/24 04/13/24 03:52 04:50 07:38 WBC 5.2 RBC 4.62 Hgb 14.2 Hct 43.5 MCV 94.2 MCH 30.7 MCHC 32.6 RDW 13.4 Plt Count 226 MPV 9.7 Immature Gran % (Auto) Neut % (Auto) Lymph % (Auto) [place] % (Auto) Eos % (Auto) Baso % (Auto) Lymph # (Auto) [place] # (Auto) Eos # (Auto) Baso # (Auto) Abs Immat Gran (auto) Absolute Neuts (auto) Absolute Nucleated RBC Nucleated RBC % PT INR APTT 77.8 H D-Dimer Sodium 141 Potassium 4.2 Chloride 106 Carbon Dioxide 28 Anion Gap 7 BUN 20 H Creatinine 0.63 L Estim Creat Clear Calc 74 Estimated GFR > 60 Glucose 100 Calcium 8.8 Total Bilirubin 0.5 AST 35 ALT 27 Alkaline Phosphatase 71 Troponin I < 0.012 < 0.012 NT-Pro-B Natriuret Pep Total Protein 6.0 L Albumin 3.9 Triglycerides 133 Cholesterol 166 LDL Cholesterol Direct 79 HDL Direct 57 Lipase Urine Color Urine Appearance Urine pH Ur Specific [place] Urine Protein Urine Glucose (UA) Urine Ketones Ur Blood (Man) Urine Nitrate Urine Bilirubin Urine Urobilinogen Leukocyte Esterase Rfl Urine RBC Urine WBC Ur Squamous Epith Cells Urine Bacteria Urine Casts Nasal MRSA (PCR) Not detected Influenza A (RT-PCR) Influenza B (RT-PCR) RSV (RT-PCR) SARS-CoV-2 RNA (RT-PCR) 04/13/24 07:59 WBC RBC Hgb Hct MCV MCH MCHC RDW Plt Count MPV Immature Gran % (Auto) Neut % (Auto) Lymph % (Auto) [place] % (Auto) Eos % (Auto) Baso % (Auto) Lymph # (Auto) [place] # (Auto) Eos # (Auto) Baso # (Auto) Abs Immat Gran (auto) Absolute Neuts (auto) Absolute Nucleated RBC Nucleated RBC % PT INR APTT D-Dimer Sodium Potassium Chloride Carbon Dioxide Anion Gap BUN Creatinine Estim Creat Clear Calc Estimated GFR Glucose Calcium Total Bilirubin AST ALT Alkaline Phosphatase Troponin I NT-Pro-B Natriuret Pep Total Protein Albumin Triglycerides Cholesterol LDL Cholesterol Direct HDL Direct Lipase Urine Color Urine Appearance Urine pH Ur Specific [place] Urine Protein Urine Glucose (UA) Urine Ketones Ur Blood (Man) Urine Nitrate Urine Bilirubin Urine Urobilinogen Leukocyte Esterase Rfl Urine RBC Urine WBC Ur Squamous Epith Cells Urine Bacteria Urine Casts Nasal MRSA (PCR) Influenza A (RT-PCR) Negative Influenza B (RT-PCR) Negative RSV (RT-PCR) Negative SARS-CoV-2 RNA (RT-PCR) Negative Quality VTE Prophylaxis VTE prophylaxis: pharmacologic ordered Hospitalist [facility] Advance Care Plan I have confirmed that the patient's Advanced Care Plan is present, code status is documented, or surrogate decision maker is listed in patient medical record.: Yes Medication Reconciliation I have utilized all available resources to obtain, update and review the patients current medications (includes all prescriptions, OTC, herbals, cannabis, and nutritional supplements).: Yes
--- NOTE | 2024-04-13 17:48 | WPDHPUPDATE1 ---
History and Physical Update Update Date/Time: 04/13/24 17:38 History and Physical has been reviewed, including an updated exam of the patient. There are NO changes in the patient's condition. Risks, benefits, and alternatives have been discussed and questions answered. Patient agrees to proceed with procedure.
--- NOTE | 2024-04-13 17:49 | P.SEDATION_ITS ---
Moderate Sedation Note-Pt Data Patient Data Allergies Allergy/AdvReac Type Severity Reaction Status Date / Time soy Allergy Wheezing Verified 04/13/24 17:25 meperidine AdvReac Intermediate Jittery Verified 04/13/24 17:25 potato AdvReac Other Verified 04/13/24 17:25 Home Medications ?Medication ?Instructions ?Recorded ?Confirmed ?Type alprazolam 0.5 mg tablet 0.25 mg PO QHS PRN anxiety 04/13/24 04/13/24 History atenolol 25 mg tablet 12.5 mg PO Q12H 04/13/24 04/13/24 History atorvastatin 80 mg tablet 80 mg PO QPM 04/13/24 04/13/24 History clopidogrel 75 mg tablet 75 mg PO QHS 04/13/24 04/13/24 History fluoxetine 10 mg capsule 10 mg PO QAM 04/13/24 04/13/24 History levothyroxine 100 mcg tablet 50 mcg PO QAM 04/13/24 04/13/24 History Current Medications: Active Medications Alprazolam (Alprazolam (*Crx) 0.25 Mg Tablet) 0.25 mg PO QHS PRN PRN Reason: anxiety Aspirin (Aspirin 81 Mg Chewable Tablet) 81 mg PO DAILY@0800 [facility] Last Admin: 04/13/24 10:45 Dose: 81 mg Atenolol (Atenolol 12.5 Mg Tablet) 12.5 mg PO Q12HR [facility] Last Admin: 04/13/24 08:24 Dose: Not Given Atorvastatin Calcium (Atorvastatin 40 Mg Tablet) 80 mg PO QPM [facility] Clopidogrel Bisulfate (Clopidogrel Bisulfate 75 Mg Tablet) 75 mg PO QHS [facility] Fluoxetine HCl (Fluoxetine Hcl 10 Mg Capsule) 10 mg PO QAM [facility] Last Admin: 04/13/24 10:20 Dose: 10 mg Heparin Sodium (Porcine) (Heparin Sodium 5,000 Units/Ml Vial) 4,000 units IV PUSH PRN PRN PRN Reason: aPTT less than 55 seconds Heparin Sodium (Porcine) (Heparin Sodium 5,000 Units/Ml Vial) 2,500 units IV PUSH PRN PRN PRN Reason: aPTT 55 - 70 seconds Hydromorphone HCl (Hydromorphone Hcl Inj (*Crx) 1 Mg/Ml Syr) 0.5 mg IV PUSH Q2H PRN PRN Reason: Chest Pain Last Admin: 04/13/24 03:30 Dose: 0.5 mg Heparin Sodium/Dextrose (Heparin Sodium/D5w 100 Units/Ml) 25,000 units in 250 mls @ 8 mls/hr IV CONT .Q24H JESUS; Protocol Last Admin: 04/13/24 01:27 Dose: 800 units/hr, 8 mls/hr Nitroglycerin/Dextrose (Nitroglycerin In 5% Dextrose 50 Mg) 50 mg in 250 mls @ 3 mls/hr IV CONT .Q24H STA; Protocol Stop: 04/14/24 01:01 Last Titration: 04/13/24 13:00 Dose: 10 mcg/min, 3 mls/hr Levothyroxine Sodium (Levothyroxine Sodium 50 Mcg Tablet) 50 mcg PO DAILY@0630 [facility] Last Admin: 04/13/24 07:49 Dose: 50 mcg Ondansetron HCl (Ondansetron Inj 4 Mg/2 Ml Vial) 4 mg IV PUSH Q4H PRN PRN Reason: Nausea Sedation/Anesthesia: No previous sedation/anesthesia problems (including family history). [facility] Past Medical History Medical History (Updated 04/13/24 @ 04:26 by Zuly Griffin DO) GERD (gastroesophageal reflux disease) Seasonal allergies Fracture of right tibia and fibula (~1991) Skiing accident Closed right ankle fracture (~2022) Compression fracture of T10 vertebra (~1999) Falling on ice Essential hypertension Anxiety Hypothyroidism Dyslipidemia Coronary artery disease Surgical History Surgical History (Updated 04/13/24 @ 04:26 by Zuly Griffin DO) History of sinus surgery History of two vessel coronary artery bypass graft (08/18/22) Family History Family History Father High cholesterol Hypertension Cerebrovascular accident Diabetes mellitus Cancer Mother High cholesterol Hypertension Heart disease Heart attack Cancer Sibling High cholesterol Hypertension Heart disease Diabetes mellitus Social History Social History (Updated 04/13/24 @ 04:27 by Zuly Griffin DO) Social History: She lives at home with her and 3 dogs. She does not have any children. She works in finance. She used to smoke a pack of cigarettes per day and still occasionally smokes if she goes out to have drinks. She drinks 1-2 glasses of wine 5 days a week. She denies illicit substance use. Code status: Full code Surrogate decision maker: Smoking packs per day: 1 Smoking cigarettes per day: 20.0 Years smoked: 10 Smoking pack-years: 10.00 Smoking status: Current some day smoker Tobacco type: cigarettes Additional smoking assessment comments: inconsistent for approx 10 years Alcohol intake: current Drinks per week: 7 Substance use: never Do You Feel Safe in your Home?: Yes Lack of Transportation: No Lack of Food: Never True Current Housing: I Have Housing Concerned About Future Housing: No Difficulty Paying Gas/Electric Bills: No Difficulty Paying for Meds: No Currently Unemployed: No Education: Bachelor's Degree Difficulty w/ Childcare or Family Care: No Gender identity (if verbalized by the patient): Female Spiritual care concerns: No Mod Sed Physical Exam Physical Exam Pre Procedural Exam: Normal: Lungs, Heart Rate and Heart Rhythm Hours since solid foods: 6 Hours since liquid intake: 6 Mallampati Classification: class II Internal Medicine - PN: Obj Da Vital Signs Vital Signs: Vital Signs - 24 hr 04/12/24 21:50 04/12/24 21:51 04/12/24 21:51 Pulse Rate 68 69 Respiratory Rate 20 Blood Pressure 132/89 Pulse Oximetry 98 98 Oxygen Delivery Room Air Oxygen Flow Rate 04/12/24 23:56 04/13/24 00:52 04/13/24 01:20 Pulse Rate 60 69 62 Respiratory Rate 15 17 Blood Pressure 160/96 H 114/68 Pulse Oximetry 94 98 Oxygen Delivery Oxygen Flow Rate 04/13/24 01:27 04/13/24 01:30 04/13/24 01:31 Pulse Rate 62 65 64 Respiratory Rate 12 9 L 8 L Blood Pressure 127/83 Pulse Oximetry 98 95 98 Oxygen Delivery Oxygen Flow Rate 04/13/24 01:35 04/13/24 01:40 04/13/24 01:43 Pulse Rate 64 68 63 Respiratory Rate 10 L 14 Blood Pressure 134/81 145/93 H 143/87 H Pulse Oximetry 96 97 99 Oxygen Delivery Oxygen Flow Rate 04/13/24 01:44 04/13/24 01:44 04/13/24 01:45 Pulse Rate 69 62 67 Respiratory Rate 11 L 22 H Blood Pressure 137/94 H 137/94 H Pulse Oximetry 98 99 Oxygen Delivery Oxygen Flow Rate 04/13/24 01:47 04/13/24 01:48 04/13/24 01:50 Pulse Rate 63 65 62 Respiratory Rate 13 23 H 13 Blood Pressure 115/84 120/87 122/71 Pulse Oximetry 99 99 99 Oxygen Delivery Oxygen Flow Rate 04/13/24 01:52 04/13/24 01:54 04/13/24 01:56 Pulse Rate 60 66 70 Respiratory Rate 9 L 17 16 Blood Pressure 113/67 116/90 122/90 Pulse Oximetry 99 99 99 Oxygen Delivery Oxygen Flow Rate 04/13/24 01:57 04/13/24 01:58 04/13/24 02:00 Pulse Rate 64 60 61 Respiratory Rate 24 H 13 11 L Blood Pressure 120/80 128/84 Pulse Oximetry 99 99 100 Oxygen Delivery Oxygen Flow Rate 04/13/24 02:01 04/13/24 02:02 04/13/24 02:04 Pulse Rate 61 62 63 Respiratory Rate 11 L 12 14 Blood Pressure 119/79 109/73 Pulse Oximetry 100 99 98 Oxygen Delivery Oxygen Flow Rate 04/13/24 02:06 04/13/24 02:08 04/13/24 02:10 Pulse Rate 61 62 60 Respiratory Rate 8 L 10 L 11 L Blood Pressure 115/72 115/68 116/69 Pulse Oximetry 97 97 97 Oxygen Delivery Oxygen Flow Rate 04/13/24 02:12 04/13/24 02:14 04/13/24 02:15 Pulse Rate 61 62 61 Respiratory Rate 11 L 11 L 12 Blood Pressure 111/71 110/72 Pulse Oximetry 97 98 98 Oxygen Delivery Oxygen Flow Rate 04/13/24 02:16 04/13/24 02:18 04/13/24 02:20 Pulse Rate 62 61 63 Respiratory Rate 11 L 12 12 Blood Pressure 116/74 107/71 112/69 Pulse Oximetry 98 98 97 Oxygen Delivery Oxygen Flow Rate 04/13/24 02:22 04/13/24 02:24 04/13/24 02:26 Pulse Rate 61 61 61 Respiratory Rate 12 12 12 Blood Pressure 116/74 117/70 112/63 Pulse Oximetry 97 97 97 Oxygen Delivery Oxygen Flow Rate 04/13/24 02:28 04/13/24 02:30 04/13/24 02:31 Pulse Rate 62 61 62 Respiratory Rate 11 L 12 12 Blood Pressure 107/67 114/67 Pulse Oximetry 97 97 99 Oxygen Delivery Oxygen Flow Rate 04/13/24 02:32 04/13/24 02:35 04/13/24 02:37 Pulse Rate 61 62 61 Respiratory Rate 12 12 15 Blood Pressure 116/69 113/66 115/59 L Pulse Oximetry 98 100 99 Oxygen Delivery Oxygen Flow Rate 04/13/24 02:38 04/13/24 02:40 04/13/24 02:42 Pulse Rate 63 62 62 Respiratory Rate 11 L 12 12 Blood Pressure 108/56 L 104/56 L 108/60 Pulse Oximetry 98 98 98 Oxygen Delivery Oxygen Flow Rate 04/13/24 02:44 04/13/24 02:45 04/13/24 02:46 Pulse Rate 63 61 61 Respiratory Rate 12 15 13 Blood Pressure 103/61 95/60 L Pulse Oximetry 98 98 98 Oxygen Delivery Oxygen Flow Rate 04/13/24 02:48 04/13/24 02:50 04/13/24 02:52 Pulse Rate 62 62 62 Respiratory Rate 12 12 12 Blood Pressure 105/57 L 107/61 100/55 L Pulse Oximetry 97 97 98 Oxygen Delivery Oxygen Flow Rate 04/13/24 02:54 04/13/24 02:56 04/13/24 02:57 Pulse Rate 64 64 65 Respiratory Rate 12 11 L 12 Blood Pressure 101/57 L 100/58 L Pulse Oximetry 97 98 97 Oxygen Delivery Oxygen Flow Rate 04/13/24 02:58 04/13/24 03:00 04/13/24 03:01 Pulse Rate 62 63 63 Respiratory Rate 12 11 L 13 Blood Pressure 97/54 L 101/56 L Pulse Oximetry 98 97 97 Oxygen Delivery Oxygen Flow Rate 04/13/24 03:02 04/13/24 03:04 04/13/24 03:06 Pulse Rate 64 71 71 Respiratory Rate 12 20 26 H Blood Pressure 97/61 L 102/62 115/77 Pulse Oximetry 97 100 98 Oxygen Delivery Oxygen Flow Rate 04/13/24 03:09 04/13/24 03:11 04/13/24 03:13 Pulse Rate 70 70 78 Respiratory Rate 20 16 18 Blood Pressure 109/63 111/67 113/63 Pulse Oximetry 99 98 98 Oxygen Delivery Oxygen Flow Rate 04/13/24 03:14 04/13/24 03:15 04/13/24 03:17 Pulse Rate 78 73 70 Respiratory Rate 13 13 17 Blood Pressure 136/80 119/66 Pulse Oximetry 94 96 99 Oxygen Delivery Oxygen Flow Rate 04/13/24 03:18 04/13/24 03:20 04/13/24 03:22 Pulse Rate 66 68 63 Respiratory Rate 11 L 9 L 9 L Blood Pressure 126/81 119/80 123/78 Pulse Oximetry 98 97 98 Oxygen Delivery Oxygen Flow Rate 04/13/24 03:24 04/13/24 03:25 04/13/24 03:26 Pulse Rate 63 67 67 Respiratory Rate 12 13 Blood Pressure 134/87 134/87 133/85 Pulse Oximetry 100 Oxygen Delivery Oxygen Flow Rate 04/13/24 03:29 04/13/24 03:30 04/13/24 03:31 Pulse Rate 66 66 70 Respiratory Rate 18 11 L 17 Blood Pressure 119/78 116/80 Pulse Oximetry Oxygen Delivery Oxygen Flow Rate 04/13/24 03:32 04/13/24 03:37 04/13/24 03:39 Pulse Rate 69 76 72 Respiratory Rate 15 18 20 Blood Pressure 114/86 114/70 119/81 Pulse Oximetry Oxygen Delivery Oxygen Flow Rate 04/13/24 04:15 04/13/24 04:15 04/13/24 04:15 Pulse Rate 67 67 67 Respiratory Rate 15 Blood Pressure 113/88 113/88 Pulse Oximetry 97 Oxygen Delivery Oxygen Flow Rate 04/13/24 04:20 04/13/24 04:25 04/13/24 05:35 Pulse Rate 72 58 L Respiratory Rate 20 Blood Pressure 119/81 81/62 L Pulse Oximetry 100 99 Oxygen Delivery Nasal Cannula Oxygen Flow Rate 2 04/13/24 06:00 04/13/24 06:00 04/13/24 06:00 Pulse Rate 59 L 59 L 63 Respiratory Rate 11 L Blood Pressure 89/63 L 89/63 L Pulse Oximetry 95 Oxygen Delivery Oxygen Flow Rate 04/13/24 06:45 04/13/24 08:00 04/13/24 08:00 Pulse Rate 61 59 L 59 L Respiratory Rate 11 L Blood Pressure 85/67 L Pulse Oximetry 95 Oxygen Delivery Nasal Cannula Oxygen Flow Rate 2 04/13/24 08:24 04/13/24 08:45 04/13/24 10:00 Pulse Rate 59 L 63 59 L Respiratory Rate Blood Pressure 130/94 H Pulse Oximetry Oxygen Delivery Oxygen Flow Rate 04/13/24 10:30 04/13/24 12:30 04/13/24 13:00 Pulse Rate 63 65 60 Respiratory Rate Blood Pressure 85/63 L 112/73 105/73 Pulse Oximetry Oxygen Delivery Oxygen Flow Rate Intake/Output Intake/Output: Intake & Output 04/10/24 04/11/24 04/12/24 04/13/24 23:59 23:59 23:59 23:59 Intake Total 91.3 Balance 91.3 Meds/Results Medications: Active Medications Generic Name Dose Route Start Last Admin Trade Name Freq PRN Reason Stop Dose Admin Alprazolam 0.25 mg 04/13/24 04:29 Alprazolam (*Crx) 0.25 Mg Tablet PO QHS PRN anxiety Aspirin 81 mg 04/13/24 09:45 04/13/24 10:45 Aspirin 81 Mg Chewable Tablet PO 81 mg DAILY@0800 [facility] Administration Atenolol 12.5 mg 04/13/24 09:00 04/13/24 08:24 Atenolol 12.5 Mg Tablet PO Not Given Q12HR [facility] Atorvastatin Calcium 80 mg 04/13/24 18:00 Atorvastatin 40 Mg Tablet PO QPM [facility] Clopidogrel Bisulfate 75 mg 04/13/24 21:00 Clopidogrel Bisulfate 75 Mg Tablet PO QHS [facility] Fluoxetine HCl 10 mg 04/13/24 09:00 04/13/24 10:20 Fluoxetine Hcl 10 Mg Capsule PO 10 mg QAM [facility] Administration Heparin Sodium (Porcine) 4,000 units 04/13/24 01:02 Heparin Sodium 5,000 Units/Ml Vial IV PUSH PRN PRN aPTT less than 55 seconds Heparin Sodium (Porcine) 2,500 units 04/13/24 01:02 Heparin Sodium 5,000 Units/Ml Vial IV PUSH PRN PRN aPTT 55 - 70 seconds Hydromorphone HCl 0.5 mg 04/13/24 03:22 04/13/24 03:30 Hydromorphone Hcl Inj (*Crx) 1 Mg/Ml Syr IV PUSH 0.5 mg Q2H PRN Administration Chest Pain Heparin Sodium/Dextrose 25,000 units in 250 mls @ 8 mls/hr 04/13/24 01:05 04/13/24 01:27 Heparin Sodium/D5w 100 Units/Ml IV CONT 800 units/hr .Q24H JESUS 8 mls/hr Administration Protocol 800 UNITS/HR Nitroglycerin/Dextrose 50 mg in 250 mls @ 3 mls/hr 04/13/24 01:02 04/13/24 13:00 Nitroglycerin In 5% Dextrose 50 Mg IV CONT 04/14/24 01:01 10 mcg/min .Q24H STA 3 mls/hr Titration Protocol 10 MCG/MIN Levothyroxine Sodium 50 mcg 04/13/24 06:30 04/13/24 07:49 Levothyroxine Sodium 50 Mcg Tablet PO 50 mcg DAILY@0630 JESUS Administration Ondansetron HCl 4 mg 04/13/24 02:56 Ondansetron Inj 4 Mg/2 Ml Vial IV PUSH Q4H PRN Nausea Radiology Results: ITS Impressions Chest X-Ray 04/12/24 23:45 IMPRESSION: No focal infiltrate or effusion. Labs 04/13/24 07:38 04/13/24 07:38 Labs: Laboratory Results - last 24 hr 04/12/24 04/12/24 04/13/24 22:17 23:29 00:48 WBC 4.8 RBC 4.57 Hgb 14.2 Hct 42.0 MCV 91.9 MCH 31.1 MCHC 33.8 RDW 13.3 Plt Count 235 MPV 9.5 Immature Gran % (Auto) 0.2 Neut % (Auto) 50.8 Lymph % (Auto) 37.7 [place] % (Auto) 8.4 Eos % (Auto) 2.3 Baso % (Auto) 0.6 Lymph # (Auto) 1.80 [place] # (Auto) 0.4 Eos # (Auto) 0.1 Baso # (Auto) 0.0 Abs Immat Gran (auto) 0.01 Absolute Neuts (auto) 2.4 Absolute Nucleated RBC 0.000 Nucleated RBC % 0.0 PT 12.8 INR 0.9 APTT 27.4 D-Dimer < 0.27 Sodium 142 Potassium 4.3 Chloride 105 Carbon Dioxide 26 Anion Gap 11 BUN 20 H Creatinine 0.60 L Estim Creat Clear Calc 77 Estimated GFR > 60 Glucose 106 Calcium 9.2 Total Bilirubin 0.3 AST 27 ALT 30 Alkaline Phosphatase 77 Troponin I < 0.012 < 0.012 NT-Pro-B Natriuret Pep 41 Total Protein 7.0 Albumin 4.2 Triglycerides Cholesterol LDL Cholesterol Direct HDL Direct Lipase 126 Urine Color Yellow Urine Appearance Cloudy H Urine pH 7.0 Ur Specific [place] 1.020 Urine Protein Negative Urine Glucose (UA) Negative Urine Ketones Trace H Ur Blood (Man) Negative Urine Nitrate Negative Urine Bilirubin Negative Urine Urobilinogen 0.2 Leukocyte Esterase Rfl Negative Urine RBC 0-2 Urine WBC 0-5 Ur Squamous Epith Cells None seen Urine Bacteria None seen Urine Casts 0-2 Nasal MRSA (PCR) Influenza A (RT-PCR) Influenza B (RT-PCR) RSV (RT-PCR) SARS-CoV-2 RNA (RT-PCR) 04/13/24 04/13/24 04/13/24 03:52 04:50 07:38 WBC 5.2 RBC 4.62 Hgb 14.2 Hct 43.5 MCV 94.2 MCH 30.7 MCHC 32.6 RDW 13.4 Plt Count 226 MPV 9.7 Immature Gran % (Auto) Neut % (Auto) Lymph % (Auto) [place] % (Auto) Eos % (Auto) Baso % (Auto) Lymph # (Auto) [place] # (Auto) Eos # (Auto) Baso # (Auto) Abs Immat Gran (auto) Absolute Neuts (auto) Absolute Nucleated RBC Nucleated RBC % PT INR APTT 77.8 H D-Dimer Sodium 141 Potassium 4.2 Chloride 106 Carbon Dioxide 28 Anion Gap 7 BUN 20 H Creatinine 0.63 L Estim Creat Clear Calc 74 Estimated GFR > 60 Glucose 100 Calcium 8.8 Total Bilirubin 0.5 AST 35 ALT 27 Alkaline Phosphatase 71 Troponin I < 0.012 < 0.012 NT-Pro-B Natriuret Pep Total Protein 6.0 L Albumin 3.9 Triglycerides 133 Cholesterol 166 LDL Cholesterol Direct 79 HDL Direct 57 Lipase Urine Color Urine Appearance Urine pH Ur Specific [place] Urine Protein Urine Glucose (UA) Urine Ketones Ur Blood (Man) Urine Nitrate Urine Bilirubin Urine Urobilinogen Leukocyte Esterase Rfl Urine RBC Urine WBC Ur Squamous Epith Cells Urine Bacteria Urine Casts Nasal MRSA (PCR) Not detected Influenza A (RT-PCR) Influenza B (RT-PCR) RSV (RT-PCR) SARS-CoV-2 RNA (RT-PCR) 04/13/24 07:59 WBC RBC Hgb Hct MCV MCH MCHC RDW Plt Count MPV Immature Gran % (Auto) Neut % (Auto) Lymph % (Auto) [place] % (Auto) Eos % (Auto) Baso % (Auto) Lymph # (Auto) [place] # (Auto) Eos # (Auto) Baso # (Auto) Abs Immat Gran (auto) Absolute Neuts (auto) Absolute Nucleated RBC Nucleated RBC % PT INR APTT D-Dimer Sodium Potassium Chloride Carbon Dioxide Anion Gap BUN Creatinine Estim Creat Clear Calc Estimated GFR Glucose Calcium Total Bilirubin AST ALT Alkaline Phosphatase Troponin I NT-Pro-B Natriuret Pep Total Protein Albumin Triglycerides Cholesterol LDL Cholesterol Direct HDL Direct Lipase Urine Color Urine Appearance Urine pH Ur Specific [place] Urine Protein Urine Glucose (UA) Urine Ketones Ur Blood (Man) Urine Nitrate Urine Bilirubin Urine Urobilinogen Leukocyte Esterase Rfl Urine RBC Urine WBC Ur Squamous Epith Cells Urine Bacteria Urine Casts Nasal MRSA (PCR) Influenza A (RT-PCR) Negative Influenza B (RT-PCR) Negative RSV (RT-PCR) Negative SARS-CoV-2 RNA (RT-PCR) Negative ASA Classification/Sedation ASA Classification/Sedation ASA Class: III Emergent: No Risks: Risks, benefits and alternatives explained and patient/family accepted plan for sedation. Patient re-evaluated immediately prior to sedation.
--- NOTE | 2024-04-13 17:49 | WPDCARDPROC ---
Cardiac Cath Procedure Note Date of procedure:: 04/13/24 Performing physician:: CATHETERIZATION LABORATORY REPORT Procedure Date: 04/13/2024 Referring Physician: Dr. Molina Anesthesia: Versed and Fentanyl were ordered and given in my presence at , procedure ended at . Supervision of nurse monitored moderate sedation with Versed and Fentanyl was provided for minutes. Pre-op Diagnosis: Unstable angina Post-op Diagnosis: Unstable angina Procedure(s): Ultrasound guided arterial access Left heart catheterization with coronary and bypass grafts angiography Percutaneous coronary intervention Access Site: Right common femoral artery Brief History and Clinical Indications: 64-year-old woman with CAD status post 2 vessel bypass with PATE to LAD and SVG to acute marginal presents with chest discomfort now on nitroglycerin drip with subtle ischemic ECG changes is here to define her coronary anatomy with possible PCI. All risks, benefits and alternatives to left heart catheterization with or without percutaneous coronary intervention was discussed at length with the patient. Risk of complications including but not limited to bleeding, infection, arrhythmia, stroke, worsening kidney function, blood loss, groin hematoma, limb loss, emergency coronary artery bypass grafting, and even were discussed with the patient and all questions were answered. The patient understood and wished to proceed. Time out called, patient name, date of , medical record number, allergies, procedure performed, identify Performance Improvement Analyst, patient and staff member concurred with accurate data, procedure carried on. Findings: LEFT HEART CATHETERIZATION FINDINGS: 1. Left main: The left main coronary artery is widely patent without any significant obstructive disease. 2. Left anterior descending: The LAD is occluded right after the 2nd diagonal branch. The ostial to proximal LAD has 20-40% diffuse stenosis. The 1st diagonal branch is a moderate caliber vessel supplying a moderate territory and has 10-20% diffuse stenosis. The 2nd diagonal branch is a moderate caliber vessel supplying moderate territory and has diffuse 10-20% stenosis. 3. Left circumflex: The left circumflex is moderate caliber vessel that gives off 2 OM branches. The mid left circumflex has a 95% stenosis. OM1 has 30% stenosis in its proximal body prior to branching off into 3 vessels. OM2 is a moderate caliber vessel supplying a small territory and has no angiographic high-grade stenosis. 4. Right coronary artery: The RCA is a dominant vessel and occluded in its proximal body. Prior to its occlusion, it supplies a small RV marginal branch. 5. Bypass grafts PATE to LAD is widely patent with no angiographic high-grade stenosis. The mid to distal LAD is angiographically high-grade stenosis. SVG to acute marginal is widely patent with no angiographic high-grade stenosis. In the mid body of the acute marginal branch, there is a 20% stenosis. There appears to be retrograde flow to supply the RPDA and right posterolateral branches. 5. Left ventricle: A. End-diastolic pressure 36 mmHg. B. LV gram deferred. C. No significant gradient across aortic valve on catheter pullback. 6. Opening AO pressure 144/86 and closing AO pressure 169/95 Description of Procedure: Informed consent signed and placed in the chart. Patient transferred to [facility] conservation laborer room. Prepped and draped in usual sterile fashion. 2% lidocaine in right groin area. Micropuncture needle used to access right common femoral artery with Seldinger technique under fluoroscopic guidance. J wire advanced, micropuncture cannula placed and exchanged for a 6F sheath. 5F JL4 diagnostic catheter engaged Left Main Coronary Artery. 5F JR4 diagnostic catheter engaged Right Coronary Artery. 5F JR4 diagnostic catheter engaged the SVG to acute marginal and PATE-LAD. Multiple orthogonal angiogram obtained and reviewed 5F Pigtail diagnostic catheter crossed aortic valve to obtain LVEDP, LV angiogram deferred. Procedure Description for PCI: Heparin was used for anticoagulation (ACT maintained above 250) Patient loaded with heparin at 70 units/kg. 6F CLS3.5 guide catheter was used to intubate the LMCA. 0.014 Runthrough coronary wire was passed in to the distal OM1 vessel. The lesion was pre-dilated with a 2.5 x 10mm balloon inflated to 12atm. A 3.0 x 15mm Orsiro CASSY was successfully deployed into mid left circumflex dilated to 13atm with excellent angiographic results. Intracoronary NTG 300mcg was administered. Follow-up angiograms showed an excellent result. Coronary wire and guide-catheter were removed were removed under fluoroscopy. Final angiography demonstrated an excellent results. Pre-procedure - RYAN 3 flow Post-procedure - RYAN 3 flow No angiographic complications identified. Assessment: Successful PCI to the left circumflex with a 3.0 x 15mm Orsiro CASSY dilated to 13atm with excellent angiographic results. Post Operative Condition: Stable No significant blood loss Disposition: Floor Plan: ASA 81mg PO indefinitely. Plavix 75mg PO for a minimum of 1 year. Aggressive medical therapy and risk factor modification. Follow up with Dr. Shetty outpatient if chest pain free tomorrow. [facility]
[2024-04-13 19:04] LABS: Activated Clotting Time 239 SEC (74-137)
--- NOTE | 2024-04-13 20:06 | ECG_ITS ---
Test Date: 2024-04-13 20:12:19 Measurements Intervals [place] Rate: 64 P: 18 AR: 173 QRS: 35 QRSD: 89 T: 66 QT: 423 QTc: 438 Interpretive Statements SINUS RHYTHM MINIMAL Q WAVES- INFERIOR LEADS BORDERLINE ST-T WAVE ABNORMALITY- ANTEROLAT/HIGH LAT LEADS BORDERLINE ECG Compared to ECG 04/13/2024 10:44:27 NO SIGNIFICANT CHANGE Electronically Signed On 04-14-2024 07:09:39 SENIOR MEDICAL DIRECTOR by Hernandez Welch D.O.
[2024-04-13] MEDS: SODIUM CHLORIDE 0.9% IV 1,000 ML 125 ML IV CONT (21:06)
[2024-04-13] MEDS: ATORVASTATIN 40 MG TABLET 80 MG PO (21:28)
[2024-04-13] MEDS: atenoloL 12.5 MG TABLET PO (21:28)
[2024-04-13] MEDS: CLOPIDOGREL BISULFATE 75 MG TABLET PO (21:28)
[2024-04-14] VITALS (8 sets, daily range): BP systolic 96–116; BP diastolic 71–83; PULSE 60–78; RESP 11–18; TEMP 36.7–36.8; O2SAT 94–97
[2024-04-14 06:32] LABS: Basophils Percent Auto 0.3 % (0.2-1.2); Eosinophils Absolute Auto 0.1 K/mm3 (0-0.3); Eosinophils Percent Auto 0.8 % (0-4.4); Hematocrit 42.2 % (37.0-47.0); Immature Granulocyte Absolute 0.01 K/mm3 (0.00-0.031); Immature Granulocyte Percent A 0.1 % (0-0.5); Lymphocytes Absolute Auto 1.39 K/mm3 (0.9-3.2); Lymphocytes Percent Auto 18.4 % (18.3-44.2); Mean Corpuscular HGB Conc 33.2 g/dl (32-36); Mean Corpuscular Hemoglobin 31.3 pg (26-34); Mean Corpuscular Volume 94.4 fl (80-100); Mean Platelet Volume 9.4 fl (7.4-10.4); Monocytes Absolute Auto 0.6 K/mm3 (0.1-0.6); Monocytes Percent Auto 7.9 % (2.6-8.5); Neutrophils Absolute Auto 5.5 K/mm3 (1.3-6.7); Neutrophils Percent Auto 72.5 % (45.5-73.1); Platelet Count Result 217 k/mm3 (150-375); Red Blood Count 4.47 M/mm3 (4.2-5.4); Red Cell Distribution Width 13.6 % (11.5-14.5); White Blood Count 7.6 K/mm3 (4.5-10.0)
[2024-04-14] MEDS: LEVOTHYROXINE SODIUM 50 MCG TABLET PO (06:36)
[2024-04-14 06:43] LABS: Alanine Aminotransferase 23 U/L (6-35); Albumin Level 3.7 g/dL (3.5-5.1); Alkaline Phosphatase 52 U/L (38-126); Anion Gap 8 mmol/L (4-12); Aspartate Amino Transferase 21 U/L (14-36); Bilirubin,Total 0.6 mg/dL (0.2-1.3); Blood Urea Nitrogen 11 mg/dL (7-17); Calcium 8.5 mg/dL (8.4-10.2); Carbon Dioxide 26 mmol/L (22-30); Chloride 107 mmol/L (98-107); Estimated CRCL calculation 82 ml/min; Estimated Glomerular Filt Rate > 60; Glucose 99 mg/dL (65-110); Magnesium 1.8 mg/dL (1.6-2.3); Phosphorus 3.1 mg/dL (2.5-4.5); Potassium 4.1 mmol/L (3.4-5.0); Sodium 141 mmol/L (137-145)
[2024-04-14] MEDS: FLUoxetine HCL 10 MG CAPSULE PO (08:37)
[2024-04-14] MEDS: ASPIRIN 81 MG CHEWABLE TABLET PO (08:37)
[2024-04-14] MEDS: atenoloL 12.5 MG TABLET PO (08:37)
--- NOTE | 2024-04-14 08:42 | PM.PNCARD ---
Progress Note: A&P Assessment and Plan (1) Abnormal ECG: Code(s): R94.31 - Abnormal electrocardiogram [ECG] [EKG] Status: Acute Plan 69-year-old woman with CAD status post 2 vessel bypass (burks to LAD and SVG to acute marginal), hyperlipidemia, and hypothyroidism presented with chest pain admitted for unstable angina who was urgently taken to the cardiac catheterization lab secondary to persistent symptoms despite up titration of nitroglycerin drip along with dynamic EKG changes. Unstable angina -status post PCI to left circumflex culprit -continue aspirin 81 mg p.o. daily indefinitely -continue Plavix 75 mg p.o. daily for minimum of 1 year -continue atenolol 12.5 mg p.o. q.12h Hyperlipidemia -continue atorvastatin 80 mg every evening Hypothyroidism -on levothyroxine 50 mcg every morning Patient is doing well is symptom free without complications from PCI and can be discharged from cardiac perspective today. She will be following up with Dr. Shetty this week Subjective Date/time seen: 04/14/24 08:42 Interval history: Denies any further chest discomfort or shortness of breath. No groin pain. No leg discomfort. Doing very well. Review of Systems Cardiovascular: Cardiovascular: Reports as per HPI Respiratory: Respiratory: Reports as per HPI Exam Const: General: comfortable HENMT: Mouth: Yes moist mucous membranes Eyes: EOM: EOMs intact bilaterally Neck: Neck: no JVD Resp: Effort & Inspection: normal respiratory effort Auscultation: clear to auscultation bilaterally Cardio: Rate: regular rate Rhythm: regular rhythm Neuro: Speech: normal speech Extrem: General: no pedal edema Other: Groin access site without hematoma. Dressing removed. No bleeding. Objective Data Vital Signs Vital Signs: Vital Signs - 24 hr 04/13/24 08:45 04/13/24 10:00 04/13/24 10:00 Temperature Pulse Rate 63 59 L 66 Respiratory Rate 19 Blood Pressure 130/94 H 145/106 H Pulse Oximetry Oxygen Delivery Oxygen Flow Rate 04/13/24 10:30 04/13/24 12:00 04/13/24 12:00 Temperature Pulse Rate 63 60 60 Respiratory Rate 11 L Blood Pressure 85/63 L Pulse Oximetry 95 Oxygen Delivery Nasal Cannula Oxygen Flow Rate 2 04/13/24 12:00 04/13/24 12:30 04/13/24 13:00 Temperature Pulse Rate 64 65 60 Respiratory Rate 18 Blood Pressure 120/77 112/73 105/73 Pulse Oximetry 98 Oxygen Delivery Oxygen Flow Rate 04/13/24 14:00 04/13/24 14:00 04/13/24 16:00 Temperature Pulse Rate 60 67 60 Respiratory Rate 19 11 L Blood Pressure 112/68 Pulse Oximetry 92 95 Oxygen Delivery Nasal Cannula Oxygen Flow Rate 2 04/13/24 16:00 04/13/24 16:00 04/13/24 18:00 Temperature Pulse Rate 60 65 62 Respiratory Rate 18 Blood Pressure 112/69 Pulse Oximetry 93 Oxygen Delivery Oxygen Flow Rate 04/13/24 19:45 04/13/24 20:00 04/13/24 20:00 Temperature 36.6 C Pulse Rate 71 71 71 Respiratory Rate 13 13 Blood Pressure 112/74 Pulse Oximetry 99 98 Oxygen Delivery Room Air Oxygen Flow Rate 04/13/24 21:00 04/13/24 21:12 04/13/24 21:28 Temperature Pulse Rate 65 68 77 Respiratory Rate 12 12 Blood Pressure 100/63 88/68 L Pulse Oximetry 94 94 Oxygen Delivery Oxygen Flow Rate 04/13/24 21:57 04/13/24 21:57 04/13/24 22:32 Temperature Pulse Rate 77 68 66 Respiratory Rate 12 12 Blood Pressure 111/80 109/71 Pulse Oximetry 98 95 Oxygen Delivery Oxygen Flow Rate 04/14/24 00:00 04/14/24 00:00 04/14/24 00:00 Temperature Pulse Rate 65 66 63 Respiratory Rate 12 12 Blood Pressure 103/71 Pulse Oximetry 95 95 Oxygen Delivery Room Air Oxygen Flow Rate 04/14/24 02:00 04/14/24 02:00 04/14/24 04:00 Temperature Pulse Rate 64 64 61 Respiratory Rate 11 L 12 Blood Pressure 103/74 96/73 L Pulse Oximetry 94 94 Oxygen Delivery Oxygen Flow Rate 04/14/24 04:00 04/14/24 04:00 04/14/24 06:00 Temperature Pulse Rate 60 72 66 Respiratory Rate 18 14 Blood Pressure 104/78 Pulse Oximetry 95 97 Oxygen Delivery Room Air Oxygen Flow Rate 04/14/24 06:00 04/14/24 08:00 04/14/24 08:37 Temperature 36.7 C Pulse Rate 66 73 72 Respiratory Rate 18 Blood Pressure 111/83 Pulse Oximetry 95 Oxygen Delivery Oxygen Flow Rate Intake/Output Intake/Output: Intake & Output 04/11/24 04/12/24 04/13/24 04/14/24 23:59 23:59 23:59 23:59 Intake Total 529.0 477 Output Total 1150 Balance 529.0 -673 Meds/Results Medications: Active Medications Generic Name Dose Route Start Last Admin Trade Name Freq PRN Reason Stop Dose Admin Alprazolam 0.25 mg 04/13/24 04:29 Alprazolam (*Crx) 0.25 Mg Tablet PO QHS PRN anxiety Aspirin 81 mg 04/13/24 09:45 04/14/24 08:37 Aspirin 81 Mg Chewable Tablet PO 81 mg DAILY@0800 JESUS Administration Atenolol 12.5 mg 04/13/24 09:00 04/14/24 08:37 Atenolol 12.5 Mg Tablet PO 12.5 mg Q12HR JESUS Administration Atorvastatin Calcium 80 mg 04/13/24 18:00 04/13/24 21:28 Atorvastatin 40 Mg Tablet PO 80 mg QPM JESUS Administration Clopidogrel Bisulfate 75 mg 04/13/24 21:00 04/13/24 21:28 Clopidogrel Bisulfate 75 Mg Tablet PO 75 mg QHS JESUS Administration Fluoxetine HCl 10 mg 04/13/24 09:00 04/14/24 08:37 Fluoxetine Hcl 10 Mg Capsule PO 10 mg QAM JESUS Administration Levothyroxine Sodium 50 mcg 04/13/24 06:30 04/14/24 06:36 Levothyroxine Sodium 50 Mcg Tablet PO 50 mcg DAILY@0630 JESUS Administration Ondansetron HCl 4 mg 04/13/24 02:56 Ondansetron Inj 4 Mg/2 Ml Vial IV PUSH Q4H PRN Nausea Radiology Results: ITS Impressions Chest X-Ray 04/12/24 23:45 IMPRESSION: No focal infiltrate or effusion. Labs Labs: Laboratory Results - last 24 hr 04/13/24 04/13/24 04/13/24 07:38 07:59 18:58 WBC 5.2 RBC 4.62 Hgb 14.2 Hct 43.5 MCV 94.2 MCH 30.7 MCHC 32.6 RDW 13.4 Plt Count 226 MPV 9.7 Immature Gran % (Auto) Neut % (Auto) Lymph % (Auto) [place] % (Auto) Eos % (Auto) Baso % (Auto) Lymph # (Auto) [place] # (Auto) Eos # (Auto) Baso # (Auto) Abs Immat Gran (auto) Absolute Neuts (auto) Absolute Nucleated RBC Nucleated RBC % Activ Coag Time Kaolin 239 H Sodium 141 Potassium 4.2 Chloride 106 Carbon Dioxide 28 Anion Gap 7 BUN 20 H Creatinine 0.63 L Estim Creat Clear Calc 74 Estimated GFR > 60 Glucose 100 Calcium 8.8 Phosphorus Magnesium Total Bilirubin 0.5 AST 35 ALT 27 Alkaline Phosphatase 71 Troponin I < 0.012 Total Protein 6.0 L Albumin 3.9 Influenza A (RT-PCR) Negative Influenza B (RT-PCR) Negative RSV (RT-PCR) Negative SARS-CoV-2 RNA (RT-PCR) Negative 04/14/24 06:12 WBC 7.6 RBC 4.47 Hgb 14.0 Hct 42.2 MCV 94.4 MCH 31.3 MCHC 33.2 RDW 13.6 Plt Count 217 MPV 9.4 Immature Gran % (Auto) 0.1 Neut % (Auto) 72.5 Lymph % (Auto) 18.4 [place] % (Auto) 7.9 Eos % (Auto) 0.8 Baso % (Auto) 0.3 Lymph # (Auto) 1.39 [place] # (Auto) 0.6 Eos # (Auto) 0.1 Baso # (Auto) 0.0 Abs Immat Gran (auto) 0.01 Absolute Neuts (auto) 5.5 Absolute Nucleated RBC 0.000 Nucleated RBC % 0.0 Activ Coag Time Kaolin Sodium 141 Potassium 4.1 Chloride 107 Carbon Dioxide 26 Anion Gap 8 BUN 11 D Creatinine 0.56 L Estim Creat Clear Calc 82 Estimated GFR > 60 Glucose 99 Calcium 8.5 Phosphorus 3.1 Magnesium 1.8 Total Bilirubin 0.6 AST 21 ALT 23 Alkaline Phosphatase 52 Troponin I Total Protein 6.0 L Albumin 3.7 Influenza A (RT-PCR) Influenza B (RT-PCR) RSV (RT-PCR) SARS-CoV-2 RNA (RT-PCR)
--- NOTE | 2024-04-14 11:54 | P.PNINT_ITS ---
Progress Note: A&P Assessment and Plan (1) Unstable angina: Code(s): I20.0 - Unstable angina Status: Acute Assessment and Plan: -Admitted on 04/12/2024 with complains of chest pain that has been going on intermittently for the last 2 days prior to admission. Initially she felt that the pain was gas pain behind her heart which she has had for the last so many years for which she takes Pepcid. The pain lasted about 10-15 minutes. She continue have pain for the next 2 days intermittently. On the day of admission she developed chest pain which lasted for a longer duration, stated she had between her shoulder blades and substernal. Denies any nausea, vomiting, shortness of breath, diaphoresis. In the ER EKG was initially normal repeat EKG did show some ST T changes in the lateral leads. Patient was started on heparin and nitroglycerin infusion. -status post coronary angiogram, PTCA/PCI with CASSY x1 to mid left circumflex which likely was the culprit artery as it had 95% stenosis. S -continue aspirin, Plavix, atenolol, atorvastatin Plan DVT prophylaxis: Status post heparin infusion, now status post cardiac catheterization Stress ulcer prophylaxis: Not indicated Nutrition: Heart healthy diet Code Status: Full code Critical Care Time Spent: 31 minutes Discuss with Cardiology, okay to discharge home Discuss with patient and updated with her condition and plan of care. She is aware that she will be getting discharged, will follow with a administrator health care facility Dr. Shetty Due to a high probability of clinically significant, life threatening deterioration, the patient required my highest level of preparedness to intervene emergently and I personally spent this critical care time directly and personally managing the patient. This critical care time included obtaining a history; examining the patient; pulse oximetry; ordering and review of studies; arranging urgent treatment with development of a management plan; evaluation of patient's response to treatment; frequent reassessment; and discussions with other providers. It was exclusive of separately billable procedures and treating other patients and teaching time. Please see Assessment and Plan section and the rest of the note for further information on patient assessment and treatment This dictation may have been done utilizing a voice recognition system. Attempts have been made to correct errors. However, there may be uncorrected grammatical, spelling, and recognitions errors present. Subjective Date/time seen: 04/14/24 11:54 Interval history: Reason for consult: Chest pain,, abdominal EKG status post PTCA/PCI with CASSY x1 to left circumflex on 04/13 Patient seen and examined the ICU this morning, is awake, alert, chest pain- free, denies any shortness of breath, diaphoresis, nausea, vomiting. States she feels much better. Patient is hemodynamically stable, afebrile, adequate urine output Review of Systems Review of Systems: All systems reviewed & are unremarkable except as noted in HPI and below Exam Narrative: General: Pleasant female in no acute distress HEENT:? Pupils equal and reactive, sclera is clear, moist oral mucosa Neck:? Supple Respiratory:? Clear to auscultation bilaterally, no wheezing, adequate air entry, no chest wall tenderness Cardiac:? S1-S2 normal, regular rate and rhythm Abdomen:? Soft, nontender, nondistended, normoactive bowel sounds Extremities:? No edema, palpable pedal Neuro:? Awake, alert, oriented x3, nonfocal, answers to questions appropriately and follows simple commands in all extremities Skin:? No skin lesions, warm and dry Psych:? Normal mentation and affect Objective Data Vital Signs Vital Signs: Vital Signs - 24 hr 04/13/24 12:00 04/13/24 12:00 04/13/24 12:00 Temperature Pulse Rate 60 60 64 Respiratory Rate 11 L 18 Blood Pressure 120/77 Pulse Oximetry 95 98 Oxygen Delivery Nasal Cannula Oxygen Flow Rate 2 04/13/24 12:30 04/13/24 13:00 04/13/24 14:00 Temperature Pulse Rate 65 60 60 Respiratory Rate Blood Pressure 112/73 105/73 Pulse Oximetry Oxygen Delivery Oxygen Flow Rate 04/13/24 14:00 04/13/24 16:00 04/13/24 16:00 Temperature Pulse Rate 67 60 60 Respiratory Rate 19 11 L Blood Pressure 112/68 Pulse Oximetry 92 95 Oxygen Delivery Nasal Cannula Oxygen Flow Rate 2 04/13/24 16:00 04/13/24 18:00 04/13/24 19:45 Temperature 97.9 F Pulse Rate 65 62 71 Respiratory Rate 18 13 Blood Pressure 112/69 112/74 Pulse Oximetry 93 99 Oxygen Delivery Oxygen Flow Rate 04/13/24 20:00 04/13/24 20:00 04/13/24 21:00 Temperature Pulse Rate 71 71 65 Respiratory Rate 13 12 Blood Pressure 100/63 Pulse Oximetry 98 94 Oxygen Delivery Room Air Oxygen Flow Rate 04/13/24 21:12 04/13/24 21:28 04/13/24 21:57 Temperature Pulse Rate 68 77 77 Respiratory Rate 12 Blood Pressure 88/68 L Pulse Oximetry 94 Oxygen Delivery Oxygen Flow Rate 04/13/24 21:57 04/13/24 22:32 04/14/24 00:00 Temperature Pulse Rate 68 66 65 Respiratory Rate 12 12 12 Blood Pressure 111/80 109/71 Pulse Oximetry 98 95 95 Oxygen Delivery Room Air Oxygen Flow Rate 04/14/24 00:00 04/14/24 00:00 04/14/24 02:00 Temperature Pulse Rate 66 63 64 Respiratory Rate 12 Blood Pressure 103/71 Pulse Oximetry 95 Oxygen Delivery Oxygen Flow Rate 04/14/24 02:00 04/14/24 04:00 04/14/24 04:00 Temperature Pulse Rate 64 61 60 Respiratory Rate 11 L 12 Blood Pressure 103/74 96/73 L Pulse Oximetry 94 94 Oxygen Delivery Oxygen Flow Rate 04/14/24 04:00 04/14/24 06:00 04/14/24 06:00 Temperature Pulse Rate 72 66 66 Respiratory Rate 18 14 Blood Pressure 104/78 Pulse Oximetry 95 97 Oxygen Delivery Room Air Oxygen Flow Rate 04/14/24 08:00 04/14/24 08:00 04/14/24 08:00 Temperature 98.0 F Pulse Rate 73 72 66 Respiratory Rate 18 18 Blood Pressure 111/83 Pulse Oximetry 95 95 Oxygen Delivery Room Air Oxygen Flow Rate 04/14/24 08:37 04/14/24 10:00 Temperature Pulse Rate 72 67 Respiratory Rate Blood Pressure Pulse Oximetry Oxygen Delivery Oxygen Flow Rate Intake/Output Intake/Output: Intake & Output 04/11/24 04/12/24 04/13/24 04/14/24 23:59 23:59 23:59 23:59 Intake Total 529.0 477 Output Total 1150 Balance 529.0 -673 Meds/Results Medications: Active Medications Generic Name Dose Route Start Last Admin Trade Name Freq PRN Reason Stop Dose Admin Alprazolam 0.25 mg 04/13/24 04:29 Alprazolam (*Crx) 0.25 Mg Tablet PO QHS PRN anxiety Aspirin 81 mg 04/13/24 09:45 04/14/24 08:37 Aspirin 81 Mg Chewable Tablet PO 81 mg DAILY@0800 [facility] Administration Atenolol 12.5 mg 04/13/24 09:00 04/14/24 08:37 Atenolol 12.5 Mg Tablet PO 12.5 mg Q12HR JESUS Administration Atorvastatin Calcium 80 mg 04/13/24 18:00 04/13/24 21:28 Atorvastatin 40 Mg Tablet PO 80 mg QPM JESUS Administration Clopidogrel Bisulfate 75 mg 04/13/24 21:00 04/13/24 21:28 Clopidogrel Bisulfate 75 Mg Tablet PO 75 mg QHS JESUS Administration Fluoxetine HCl 10 mg 04/13/24 09:00 04/14/24 08:37 Fluoxetine Hcl 10 Mg Capsule PO 10 mg QAM [facility] Administration Levothyroxine Sodium 50 mcg 04/13/24 06:30 04/14/24 06:36 Levothyroxine Sodium 50 Mcg Tablet PO 50 mcg DAILY@0630 [facility] Administration Ondansetron HCl 4 mg 04/13/24 02:56 Ondansetron Inj 4 Mg/2 Ml Vial IV PUSH Q4H PRN Nausea Radiology Results: ITS Impressions Chest X-Ray 04/12/24 23:45 IMPRESSION: No focal infiltrate or effusion. Labs Labs: Laboratory Results - last 24 hr 04/13/24 04/14/24 18:58 06:12 WBC 7.6 RBC 4.47 Hgb 14.0 Hct 42.2 MCV 94.4 MCH 31.3 MCHC 33.2 RDW 13.6 Plt Count 217 MPV 9.4 Immature Gran % (Auto) 0.1 Neut % (Auto) 72.5 Lymph % (Auto) 18.4 [place] % (Auto) 7.9 Eos % (Auto) 0.8 Baso % (Auto) 0.3 Lymph # (Auto) 1.39 [place] # (Auto) 0.6 Eos # (Auto) 0.1 Baso # (Auto) 0.0 Abs Immat Gran (auto) 0.01 Absolute Neuts (auto) 5.5 Absolute Nucleated RBC 0.000 Nucleated RBC % 0.0 Activ Coag Time Kaolin 239 H Sodium 141 Potassium 4.1 Chloride 107 Carbon Dioxide 26 Anion Gap 8 BUN 11 D Creatinine 0.56 L Estim Creat Clear Calc 82 Estimated GFR > 60 Glucose 99 Calcium 8.5 Phosphorus 3.1 Magnesium 1.8 Total Bilirubin 0.6 AST 21 ALT 23 Alkaline Phosphatase 52 Total Protein 6.0 L Albumin 3.7 Quality VTE Prophylaxis VTE prophylaxis: pharmacologic ordered
--- NOTE | 2024-04-14 12:02 | PM.DS ---
DS: Admitting Diagnosis Discharge Date 04/14/2024 Admitting Diagnosis Chest pain, unstable angina DS: Discharge Diagnosis Discharge Diagnosis (1) Unstable angina: Code(s): I20.0 - Unstable angina Status: Acute Assessment and Plan: -Admitted on 04/12/2024 with complains of chest pain that has been going on intermittently for the last 2 days prior to admission. Initially she felt that the pain was gas pain behind her heart which she has had for the last so many years for which she takes Pepcid. The pain lasted about 10-15 minutes. She continue have pain for the next 2 days intermittently. On the day of admission she developed chest pain which lasted for a longer duration, stated she had between her shoulder blades and substernal. Denies any nausea, vomiting, shortness of breath, diaphoresis. In the ER EKG was initially normal repeat EKG did show some ST T changes in the lateral leads. Patient was started on heparin and nitroglycerin infusion. -status post coronary angiogram, PTCA/PCI with CASSY x1 to mid left circumflex which likely was the culprit artery as it had 95% stenosis. S -continue aspirin, Plavix, atenolol, atorvastatin Plan DVT prophylaxis: Status post heparin infusion, now status post cardiac catheterization Stress ulcer prophylaxis: Not indicated Nutrition: Heart healthy diet Code Status: Full code Critical Care Time Spent: 31 minutes Discuss with Cardiology, okay to discharge home Discuss with patient and updated with her condition and plan of care. She is aware that she will be getting discharged, will follow with a industrial pipefitter journeyman Dr. Shetty Due to a high probability of clinically significant, life threatening deterioration, the patient required my highest level of preparedness to intervene emergently and I personally spent this critical care time directly and personally managing the patient. This critical care time included obtaining a history; examining the patient; pulse oximetry; ordering and review of studies; arranging urgent treatment with development of a management plan; evaluation of patient's response to treatment; frequent reassessment; and discussions with other providers. It was exclusive of separately billable procedures and treating other patients and teaching time. Please see Assessment and Plan section and the rest of the note for further information on patient assessment and treatment This dictation may have been done utilizing a voice recognition system. Attempts have been made to correct errors. However, there may be uncorrected grammatical, spelling, and recognitions errors present. DS: Summary Hospital Course Reason for hospitalization: Chest pain, unstable angina Hospital Course: Shelbie Lucas is a 64 year old female with past medical history of coronary artery disease status post CABG x2 August 2022, hyperlipidemia, presented to the ED on 04/12/2024 with complains of chest pain that has been going on intermittently for the last 2 days. Initially she felt that the pain was gas pain behind her heart which she has had for the last so many years, she takes Pepcid. The pain lasted about 10-15 minutes. She continue have pain for the next 2 days intermittently, she also thought she was having an anxiety attack due to the pain. She called her industrial pipefitter journeyman office (Dr. Shetty, here at [facility]), patient spoke to the nurse practitioner who stated that if she continues to have chest pain to come to the ER. The industrial pipefitter journeyman office scheduled a stress test on 04/14/2024. On the day of admission she developed chest pain which lasted for a longer duration, stated she had between her shoulder blades and substernal. Denies any nausea, vomiting, shortness of breath, diaphoresis. In the ER EKG was initially normal repeat EKG did show some ST T changes in the lateral leads. Patient was started on heparin and nitroglycerin infusion. Patient was transferred to the ICU for further management On 04/13: Patient remains on nitroglycerin infusion, continued to have wheezing chest pain on nitroglycerin infusion had to be increased. Discussed with cardiology again, patient was taken to cardiac union laborer, status post PTCA/PCI with CASSY x1 to mid left circumflex. This was considered to be the culprit artery which had 95% stenosis. Postprocedure patient has been chest pain-free. 04/14: Denies any chest pain, shortness of breath, abdominal pain, nausea, vomiting. Right groin site looks good with no evidence of ecchymosis or hematoma. Patient is on aspirin, Plavix, atorvastatin and atenolol. Cardiology was okay for patient to be discharged home. Condition: Stable Status at Discharge Cognitive/behavioral status at discharge: Stable Functional status at discharge: independent ambulation Overall status at discharge: patient is back to baseline Time Spent with Patient Time attestation: Total time spent providing and/or coordinating discharge services: Time spent: Less than 30 minutes Specific discharge activities: Limit any weightlifting > 2 lbs. No straining, no squatting, heart healthy diet, follow-up with industrial pipefitter journeyman Dr. Shetty Exam Narrative: General: Pleasant female in no acute distress HEENT:? Pupils equal and reactive, sclera is clear, moist oral mucosa Neck:? Supple Respiratory:? Clear to auscultation bilaterally, no wheezing, adequate air entry, no chest wall tenderness Cardiac:? S1-S2 normal, regular rate and rhythm Abdomen:? Soft, nontender, nondistended, normoactive bowel sounds Extremities:? No edema, palpable pedal Neuro:? Awake, alert, oriented x3, nonfocal, answers to questions appropriately and follows simple commands in all extremities Skin:? No skin lesions, warm and dry Psych:? Normal mentation and affect DS: Data Data Completed and Pending Labs on day of discharge: Labs from last 24 hours 04/14/24 04/13/24 06:12 18:58 WBC 7.6 RBC 4.47 Hgb 14.0 Hct 42.2 MCV 94.4 MCH 31.3 MCHC 33.2 RDW 13.6 Plt Count 217 MPV 9.4 Immature Gran % (Auto) 0.1 Neut % (Auto) 72.5 Lymph % (Auto) 18.4 [place] % (Auto) 7.9 Eos % (Auto) 0.8 Baso % (Auto) 0.3 Lymph # (Auto) 1.39 [place] # (Auto) 0.6 Eos # (Auto) 0.1 Baso # (Auto) 0.0 Abs Immat Gran (auto) 0.01 Absolute Neuts (auto) 5.5 Absolute Nucleated RBC 0.000 Nucleated RBC % 0.0 Activ Coag Time Kaolin 239 H Sodium 141 Potassium 4.1 Chloride 107 Carbon Dioxide 26 Anion Gap 8 BUN 11 D Creatinine 0.56 L Estim Creat Clear Calc 82 Estimated GFR > 60 Glucose 99 Calcium 8.5 Phosphorus 3.1 Magnesium 1.8 Total Bilirubin 0.6 AST 21 ALT 23 Alkaline Phosphatase 52 Total Protein 6.0 L Albumin 3.7 Discharge Plan Discharge Attending physician on discharge: Abimael Ivy Consulting providers: Abimael Ivy; Torres Reddy Discharging Clinician: Abimael Ivy Anticipated Discharge Date/Time: 04/14/24 11:59 Patient Disposition: Home, Self-Care Activity: may shower, no straining, follow weight bearing status and other - see discharge instructions Diet: heart healthy Wound Care Instructions: follow printed instructions Discharge Instructions: Make appointment with Dr. Shetty in 1 week Patient Language: [place]ijani Stand Alone Forms: General Discharge Information Follow-up/Referrals: Sarmad Shetty MD [Physician] - 1 Week Discharge Medications: New clopidogrel 75 mg Tablet 75 mg PO QHS 90 Days Qty: 90 3RF aspirin [Children's Aspirin] 81 mg Tablet,Chewable 81 mg PO DAILY@0800 30 Days Qty: 30 11RF Continued atorvastatin 80 mg tablet 80 mg PO QPM atenolol 25 mg tablet 12.5 mg PO Q12H clopidogrel 75 mg tablet 75 mg PO QHS levothyroxine 100 mcg tablet 50 mcg PO QAM alprazolam 0.5 mg tablet 0.25 mg PO QHS PRN (Reason: anxiety) Patient Comments: takes 1/2 to 1 tablet at a time fluoxetine 10 mg capsule 10 mg PO QAM Date of admission: 04/13/24 02:56 Primary Care Provider: Matias,Kyle Jackson Admitting Provider: Zuly Griffin Attending physician on admission: Zuly Griffin Condition: Serious Care Plan Goals: Do not lift any weight more than 2 lb, no straining. Health Concerns: If you developed chest pain, severe shortness of breath, go to the nearest ER Quality VTE Prophylaxis VTE prophylaxis: pharmacologic ordered
== END 2024-04-14 12:53 | disposition home or self-care (01) ==
LOC: ANHED 04-13 02:59 → ANHICU 04-14 11:40
PROVIDERS: General Practice; Internal Medicine; Admitting Provider Internal Medicine; Emergency Provider Physician Assistant; PCP Internal Medicine; Visit Provider Internal Medicine
PROC: 4A023N7 Measurement of Cardiac Sampling and Pressure, Left Heart, Percutaneous Approach (ICD-10-PCS; CPT 93459; principal; 2024-04-13 17:25)
PROC: (CPT 92928; 2024-04-13 17:25)
DX: I25.110 Atherosclerotic heart disease of native coronary artery with unstable angina pectoris (principal); R94.31 Abnormal electrocardiogram [ECG] [EKG]; I10 Essential (primary) hypertension; F41.9 Anxiety disorder, unspecified; E03.9 Hypothyroidism, unspecified; E78.5 Hyperlipidemia, unspecified; K21.9 Gastro-esophageal reflux disease without esophagitis; Z87.891 Personal history of nicotine dependence; Z20.822 Contact with and (suspected) exposure to COVID-19; Z95.1 Presence of aortocoronary bypass graft; Z79.899 Other long term (current) drug therapy
CPT/HCPCS: 36415; 71045; 80053; 80061; 81001; 83690; 83735; 83880; 84100; 84484; 85025; 85027; 85380; 85610; 85730; 87637; 87641; 93005; 93459; 96374; 96375; 99285; A9270; C1725; C1760; C1769; C1874; C1887; C1894; C9600; G0269; G0378; J1171; J1644; J2003; J2250; J2270; J2305; J3010; J3360; J7030; J7040; J7120

== ENCOUNTER 2024-09-01 16:15 | Outpatient (RCR) | payer OTHER, SELFPAY | END 2024-09-03 09:35 | disposition home or self-care (01) | LOC: ANHCPREHAB 16:15 | PROVIDERS: PCP Internal Medicine; Visit Provider Internal Medicine | DX: Z95.5 Presence of coronary angioplasty implant and graft (principal) | CPT/HCPCS: 93798 ==